=== PATIENT | female | born 1950 | race Caucasian/White ===

== ENCOUNTER 2018-10-30 02:48 | Inpatient (IN) | payer MEDICARE, MEDICAID ==
[~2018-10-30] VITALS: Ht 167.6 cm; Wt 65.0 kg
[~2018-10-30 02:48] MED LIST: ASPI81TA52 PO; BUSP5TAB3 PO; CLOP75TA35 PO; FOLI1TAB16 PO; GABA100C PO; HYDR-4353 PO; METO-539 PO; PANT40TA4 PO; THIA100T70 PO
[2018-10-30] MEDS ORDERED: ondansetron/PF 4mg/2ml inj IV ONE (03:00)
[2018-10-30] MEDS ORDERED: magnesium 2GM in 50ml NS 50 ML IV ONE (03:00)
[2018-10-30] MEDS ORDERED: normal saline 1000ML IV soln IVB ONE (03:00)
[2018-10-30] MEDS ORDERED: thiamine inj. 100 MG in normal saline 100ml IV soln 99 ML IV ONE (03:00)
[2018-10-30] MEDS ORDERED: thiamine 100mg/ml 2ml inj. IV ONE ×2 (03:10→09:20)
--- NOTE | 2018-10-30 03:12 | NUR ---
SZ PADS PLACED ORDERED
[2018-10-30 03:38] LABS: BASOPHILS # (AUTO) 0.2 X10'3 (0-0.2); BASOPHILS % (AUTO) 0.8 % (0-1); EOSINOPHILS # (AUTO) 0.4 X10'3 (0-0.9); LYMPHOCYTES # (AUTO) 2.4 X10'3 (1.1-4.8)
[2018-10-30 03:41] LABS: EOSINOPHILS % (AUTO) 1.8 % (0-6); LYMPHOCYTES % (AUTO) 11.5 % (21-51); MEAN CORPUSCULAR HEMOGLOBIN 23.6 PG (27.0-31.0); MEAN CORPUSCULAR HGB CONC 31.6 g/dL (33.0-36.5); MEAN CORPUSCULAR VOLUME 74.9 FL (78-98); MEAN PLATELET VOLUME 9.4 FL (7.4-10.4); MONOCYTES # (AUTO) 1.1 X10'3 (0-0.9); MONOCYTES % (AUTO) 5.2 % (2-12); NEUTROPHILS % (AUTO) 80.7 % (42-75); PLATELET COUNT 541 X10'3 (140-440); RED BLOOD COUNT 8.27 X10'6 (4.20-5.60); RED CELL DISTRIBUTION WIDTH 22.5 % (11.5-14.5); WHITE BLOOD COUNT 21.1 X10'3 (4.5-11.0)
--- NOTE | 2018-10-30 03:47 | NUR ---
PT REQUESTED ORANGE JUICE AND ICE CREAM. ADVISED HER WE DO NOT HAVE ICE CREAM AND BROUGHT HER 2 JUICE BOXES OF ORANGE JUICE.
[2018-10-30 03:51] LABS: ALANINE AMINOTRANSFERASE 23 U/L (12-78); ALBUMIN 3.5 G/DL (3.4-5.0); ALBUMIN/GLOBULIN RATIO 0.9 (1.1-1.5); ALKALINE PHOSPHATASE 121 IU/L (46-116); ANION GAP 13 (8-16); ASPARTATE AMINO TRANSFERASE 17 U/L (10-37); BILIRUBIN,TOTAL 0.3 MG/DL (0.1-1.0); BLOOD UREA NITROGEN 9 MG/DL (7-18); BUN/CREATININE RATIO 14.5 (6.6-38.0); CALCIUM 8.9 MG/DL (8.5-10.1); CHLORIDE 106 MMOL/L (99-107); CREATININE 0.62 MG/DL (0.40-0.90); ETHANOL 0.231 GM/DL (0.0-0.010); MAGNESIUM 1.9 MG/DL (1.5-2.4); POTASSIUM 3.3 MMOL/L (3.5-5.1); SODIUM 140 MMOL/L (135-145); TOTAL CARBON DIOXIDE 20.7 MMOL/L (24-32); TOTAL PROTEIN 7.6 G/DL (6.4-8.2); eGFR > 90 ML/MIN
[2018-10-30 03:56] LABS: GLUCOSE 124 MG/DL (70-104)
--- NOTE | 2018-10-30 04:08 | NUR ---
PT STATING "DON'T KICK ME OUT TOO SOON, I NEED A BREAK FROM MY ROOMMATE"
--- NOTE | 2018-10-30 04:19 | NUR ---
pt to bedside commode voided over 500 ml of yellow urine
[2018-10-30 04:27] LABS: HEMATOCRIT 61.9 % (35.0-45.0); HEMOGLOBIN 19.5 g/dl (12.0-16.0)
[2018-10-30 04:35] LABS: ANISOCYTOSIS 3+; LARGE PLATELETS MANY; MICROCYTOSIS 1+; PLATELET ESTIMATE INCREASED
[2018-10-30] MEDS ORDERED: CefTRIAXone 2gm/D5W 50ml 50 ML IV ONE (04:55)
--- NOTE | 2018-10-30 05:10 | NUR ---
BLOOD CX DRAWN/ URINE SENT/ PT UP OUT OF BED TO VOID IN BEDSIDE COMMODE. PT VOIDED 900ML PLUS OF CLEAR YELLOW URINE
[2018-10-30] MEDS: normal saline 1000ML IV soln IVB ONE ×2 (05:14→05:33)
[2018-10-30 05:20] LABS: CLARITY,URINE CLEAR (Clear); COLOR,URINE STRAW (Yellow); GLUCOSE, URINE NEGATIVE (Neg); KETONES,URINE NEGATIVE (Neg); LEUKOCYTE ESTERASE ,URINE NEGATIVE (Neg); NITRITES, URINE NEGATIVE (Neg); OCCULT BLOOD,URINE TRACE-INTACT (Neg); PROTEIN,URINE NEGATIVE (Neg); UROBILINOGEN,URINE 0.2 E.U/dL (0.2-1.0)
[2018-10-30 05:22] LABS: UA COLLECTION TYPE CLN CATCH MIDSTREAM
[2018-10-30 05:29] LABS: BASOPHILS # (AUTO) 0.2 X10'3 (0-0.2); EOSINOPHILS # (AUTO) 0.3 X10'3 (0-0.9); EOSINOPHILS % (AUTO) 1.4 % (0-6); LYMPHOCYTES # (AUTO) 1.5 X10'3 (1.1-4.8); LYMPHOCYTES % (AUTO) 7.8 % (21-51); MEAN CORPUSCULAR HEMOGLOBIN 23.8 PG (27.0-31.0); MEAN CORPUSCULAR HGB CONC 31.8 g/dL (33.0-36.5); MEAN CORPUSCULAR VOLUME 74.8 FL (78-98); MEAN PLATELET VOLUME 9.8 FL (7.4-10.4); MONOCYTES # (AUTO) 0.9 X10'3 (0-0.9); MONOCYTES % (AUTO) 4.5 % (2-12); NEUTROPHILS # (AUTO) 16.3 X10'3 (1.8-7.7); NEUTROPHILS % (AUTO) 85.3 % (42-75); PLATELET COUNT 487 X10'3 (140-440); RED BLOOD COUNT 8.04 X10'6 (4.20-5.60); RED CELL DISTRIBUTION WIDTH 22.4 % (11.5-14.5); WHITE BLOOD COUNT 19.1 X10'3 (4.5-11.0)
[2018-10-30 05:31] LABS: URINE AMPHETAMINE SCREEN NEGATIVE (Neg); URINE BARBITUATE SCREEN NEGATIVE (Neg); URINE BENZODIAZEPINES SCREEN NEGATIVE (Neg); URINE CANNABINOID SCREEN NEGATIVE (Neg); URINE COCAINE SCREEN NEGATIVE (Neg); URINE METHADONE SCREEN NEGATIVE (Neg); URINE OPIATE SCREEN NEGATIVE (Neg); URINE PHENCYCLIDINE SCREEN NEGATIVE (Neg)
[2018-10-30] MEDS ORDERED: azithromycin 250mg tablet PO ONE ×2 (05:45→09:20)
[2018-10-30] MEDS ORDERED: phenobarbital inj 260 MG in normal saline 100ml IV soln 99 ML IV STA (05:51)
--- NOTE | 2018-10-30 05:51 | NUR ---
pt assisted to BSC to void and then back to bed.
[2018-10-30 05:54] LABS: BACTERIA,URINE NONE SEEN /HPF (Neg); RBC,URINE 0-2 /HPF (0-2); SQUAMOUS EPITHELIAL CELL,UR FEW /LPF (FEW); WBC,URINE 0-4 /HPF (0-4)
[2018-10-30 05:55] LABS: MUCUS STRANDS NONE SEEN /LPF (Neg)
[2018-10-30 06:20] LABS: TOTAL CELLS COUNTED 100
[2018-10-30 06:21] LABS: ANISOCYTOSIS 3+; MICROCYTOSIS 1+; PLATELET ESTIMATE INCREASED
[2018-10-30 06:28] LABS: GIANT PLATELET FEW; LARGE PLATELETS FEW
[2018-10-30] MEDS ORDERED: iohexol 350MG/ML 100ml bottle IV ONE (06:36)
--- NOTE | 2018-10-30 06:55 | NUR ---
ASSUMED CARE, STARTING THE PHENOBARBITAL BOLUS PER DR Zepeda, VERIFIED WITH DR WATSON, 260MG, IV BOLUS
[2018-10-30] MEDS ORDERED: potassium Cl 20 mEq SR tablet PO STA (07:08)
[2018-10-30] MEDS ORDERED: ipratropium/albuterol 3ml nebule NEB ONE (07:30)
[2018-10-30] MEDS ORDERED: ASPI-1264 PO (09:15)
[2018-10-30] MEDS ORDERED: DIPH25CA83 PO (09:15)
[2018-10-30] MEDS ORDERED: MELA3TAB64 PO (09:15)
[2018-10-30] MEDS ORDERED: magnesium hydroxide 30ml (MOM) UD suspension PO PRN (09:20)
[2018-10-30] MEDS ORDERED: haloperidol 5mg tablet PO PRN (09:20)
[2018-10-30] MEDS ORDERED: potassium Cl 20 mEq SR tablet PO PRN ×2 (09:20)
[2018-10-30] MEDS ORDERED: magnesium Cl slow-release 64mg tablet PO PRN (09:20)
[2018-10-30] MEDS ORDERED: ondansetron/PF 4mg/2ml inj IV PRN (09:20)
[2018-10-30] MEDS ORDERED: CADD PCA waste documentation MC PRN (09:20)
[2018-10-30] MEDS ORDERED: haloperidol lactate 5mg/ml inj IM PRN (09:20)
[2018-10-30] MEDS ORDERED: acetaminophen 325mg tablet PO PRN ×2 (09:20)
[2018-10-30] MEDS ORDERED: naloxone 0.4 mg/ml inj IV PRN (09:20)
[2018-10-30] MEDS ORDERED: ipratropium/albuterol 3ml nebule NEB PRN (09:20)
[2018-10-30] MEDS ORDERED: mag hydrox/Alum hydrox/simeth 30ml oral suspension PO PRN (09:20)
[2018-10-30] MEDS ORDERED: LORazepam 2 mg/ml vial IV PRN (09:20)
[2018-10-30] MEDS ORDERED: potassium CL 10mEq/100ml bag 100 ML IV PRN ×2 (09:20)
[2018-10-30] MEDS ORDERED: dextrose 50%-water 50ml dispensing syringe IV PRN (09:20)
[2018-10-30] MEDS ORDERED: magnesium 4gm in 100ml NS 100 ML IV PRN (09:20)
[2018-10-30] MEDS ORDERED: magnesium 2GM in 50ml NS 50 ML IV PRN (09:20)
[2018-10-30] MEDS ORDERED: HYDROcodone/acetaminophen 10/325mg tab PO PRN ×2 (09:20→15:40)
[2018-10-30] MEDS: normal saline 1000ml 1,000 ML IV SCH ×2 (09:50→19:39)
[2018-10-30] MEDS ORDERED: thiamine inj. 100 MG, magnesium sulf injection 2 GM, MVI, adult No.4 with vit. K 10 ML ... IV SCH ×4 (10:05)
[2018-10-30 10:49] LABS: HEMOGLOBIN 19.1 g/dl (12.0-16.0)
[2018-10-30] MEDS: ipratropium/albuterol 3ml nebule NEB SCH ×3 (11:45→23:05)
[2018-10-30] MEDS: folic acid 1mg tablet PO SCH (12:02)
[2018-10-30] MEDS: thiamine 100mg tablet PO SCH (12:02)
[2018-10-30] MEDS: multivitamins, therapeutics tablet PO SCH (12:02)
[2018-10-30] MEDS ORDERED: THIA100T66 PO (12:38)
[2018-10-30] MEDS ORDERED: PANT-47 PO (12:38)
[2018-10-30] MEDS ORDERED: METO-395 PO (12:38)
[2018-10-30] MEDS ORDERED: GABA-530 PO (12:38)
[2018-10-30] MEDS ORDERED: BUSP10TA3 PO (12:38)
[2018-10-30] MEDS ORDERED: CLOP75TA15 PO (12:38)
[2018-10-30] MEDS ORDERED: FOLI1TAB16 PO (12:38)
[2018-10-30] MEDS ORDERED: HYDR-4353 PO (12:38)
--- NOTE | 2018-10-30 13:26 | NUR ---
CALLED TO GIVE REPORT, NURSE IS TIED UP AT THE MOMENT, SHE WILL CALL ME BACK SOON
[2018-10-30 15:00] VITALS: BP 160/66
[2018-10-30 18:03] VITALS: BP 160/75
--- NOTE | 2018-10-30 18:30 | NUR ---
Patient in room JANET 350. I have received report from MASSIMO Vargas and had the opportunity to ask questions and assume patient care with MASSIMO Ventura. Addendum: 10/30/18 at 1903 by Uvaldo Liu RN Amended: Links added.
--- NOTE | 2018-10-30 19:05 | NUR ---
Patient in room JANET 350. I have received report from GARRETT and had the opportunity to ask questions and assume patient care.
[2018-10-30 19:21] LABS: POTASSIUM 3.8 MMOL/L (3.5-5.1)
[2018-10-30] MEDS: lactobacillus rhamnosus 10,000 MMU CELLS/CAPSULE PO SCH (19:39)
[2018-10-30] MEDS ORDERED: non-formulary drug (Buspirone HCl 1 TAB) PO SCH (21:00)
[2018-10-30] MEDS ORDERED: Melatonin 3mg tablet PO SCH (21:00)
[2018-10-30] MEDS ORDERED: diphenhydrAMINE 25mg capsule PO SCH (21:00)
[2018-10-30] MEDS: busPIRone 5mg tablet PO SCH (21:36)
[2018-10-31] VITALS: BP 150/75
--- NOTE | 2018-10-31 01:16 | NUR ---
Left buttocks sl reddened, small scabs. pt states has been itching, and has reactions to certain soaps. some small scattered abrasion to lower back. no bed bugs noted, no bed bugs noted in clothing. Pt states she did not have bed bugs in her apartment, but were in other apartments in building. States the whole building is being treated, and carpet changed. picture of buttocks taken.
[2018-10-31 04:54] LABS: BASOPHILS # (AUTO) 0.1 X10'3 (0-0.2); BASOPHILS % (AUTO) 0.6 % (0-1); EOSINOPHILS # (AUTO) 0.5 X10'3 (0-0.9); EOSINOPHILS % (AUTO) 3.3 % (0-6); HEMATOCRIT 54.4 % (35.0-45.0); HEMOGLOBIN 17.3 g/dl (12.0-16.0); LYMPHOCYTES # (AUTO) 1.5 X10'3 (1.1-4.8); LYMPHOCYTES % (AUTO) 10.2 % (21-51); MEAN CORPUSCULAR HEMOGLOBIN 23.8 PG (27.0-31.0); MEAN CORPUSCULAR HGB CONC 31.8 g/dL (33.0-36.5); MEAN CORPUSCULAR VOLUME 74.8 FL (78-98); MEAN PLATELET VOLUME 10.2 FL (7.4-10.4); MONOCYTES # (AUTO) 1.1 X10'3 (0-0.9); MONOCYTES % (AUTO) 7.6 % (2-12); NEUTROPHILS # (AUTO) 11.5 X10'3 (1.8-7.7); NEUTROPHILS % (AUTO) 78.3 % (42-75); PLATELET COUNT 430 X10'3 (140-440); RED BLOOD COUNT 7.28 X10'6 (4.20-5.60); RED CELL DISTRIBUTION WIDTH 22.2 % (11.5-14.5); WHITE BLOOD COUNT 14.7 X10'3 (4.5-11.0)
[2018-10-31] MEDS: normal saline 1000ml 1,000 ML IV SCH (05:09)
[2018-10-31 05:13] LABS: ALANINE AMINOTRANSFERASE 20 U/L (12-78); ALBUMIN 2.8 G/DL (3.4-5.0); ALBUMIN/GLOBULIN RATIO 0.9 (1.1-1.5); ALKALINE PHOSPHATASE 100 IU/L (46-116); ANION GAP 5 (8-16); ASPARTATE AMINO TRANSFERASE 17 U/L (10-37); BILIRUBIN,TOTAL 0.5 MG/DL (0.1-1.0); BLOOD UREA NITROGEN 7 MG/DL (7-18); BUN/CREATININE RATIO 13.5 (6.6-38.0); CALCIUM 8.2 MG/DL (8.5-10.1); CHLORIDE 112 MMOL/L (99-107); CREATININE 0.52 MG/DL (0.40-0.90); GLUCOSE 84 MG/DL (70-104); MAGNESIUM 1.8 MG/DL (1.5-2.4); POTASSIUM 3.5 MMOL/L (3.5-5.1); SODIUM 144 MMOL/L (135-145); TOTAL CARBON DIOXIDE 26.6 MMOL/L (24-32); eGFR > 90 ML/MIN
--- NOTE | 2018-10-31 05:53 | NUR ---
AGREE WITH NURSING ASSESSMENT DONE BY MASSIMO HUERTAS Addendum: 10/31/18 at 0553 by Uvaldo Liu RN Amended: Links added.
--- NOTE | 2018-10-31 06:29 | NUR ---
Problems reprioritized. Patient report given, questions answered & plan of care reviewed with MASSIMO Leal. Addendum: 10/31/18 at 0630 by Uvaldo Liu RN Amended: Links added.
--- NOTE | 2018-10-31 06:41 | NUR ---
Patient in room JANET 350. I have received report from SHERIE KEYS and had the opportunity to ask questions and assume patient care.
[2018-10-31 07:00] VITALS: BP 197/82
[2018-10-31] MEDS ORDERED: levoTHYROXINE 25mcg tablet PO SCH (07:00)
[2018-10-31 07:06] LABS: ANISOCYTOSIS 3+; ELLIPTOCYTES FEW; LARGE PLATELETS FEW; MICROCYTOSIS 1+; PLATELET ESTIMATE NORMAL
[2018-10-31] MEDS: ipratropium/albuterol 3ml nebule NEB SCH ×3 (07:29→15:12)
[2018-10-31] MEDS ORDERED: CefTRIAXone/D5W-Rocephin 1gm 50 ML IV SCH (08:00)
[2018-10-31] MEDS ORDERED: aspirin 325mg tablet PO SCH (08:00)
[2018-10-31] MEDS ORDERED: K and/or MAG REPLACEMENT MC SCH (08:00)
[2018-10-31] MEDS ORDERED: enoxaparin 40mg/0.4ml syringe SQ SCH (08:00)
[2018-10-31] MEDS ORDERED: pantoprazole 40mg Tablet.DR PO SCH (08:00)
[2018-10-31] MEDS ORDERED: gabapentin 100mg capsule PO SCH (08:00)
[2018-10-31] MEDS ORDERED: clopidogrel 75mg tablet PO SCH (08:00)
[2018-10-31] MEDS ORDERED: azithromycin 250mg tablet PO SCH (08:00)
[2018-10-31] MEDS ORDERED: metoprolol succinate 25mg (24-HOUR) SR. Tablet PO SCH (08:00)
[2018-10-31 08:41] LABS: HEMATOCRIT 60.1 % (35.0-45.0)
[2018-10-31] MEDS: folic acid 1mg tablet PO SCH (08:43)
[2018-10-31] MEDS: thiamine 100mg tablet PO SCH (08:43)
[2018-10-31] MEDS: lactobacillus rhamnosus 10,000 MMU CELLS/CAPSULE PO SCH (08:43)
[2018-10-31] MEDS: busPIRone 5mg tablet PO SCH ×2 (08:44→13:40)
[2018-10-31] MEDS: multivitamins, therapeutics tablet PO SCH (08:53)
[2018-10-31 11:00] VITALS: BP 152/102
--- NOTE | 2018-10-31 11:23 | NUR ---
PER [facility] DEPT. PT DOES NOT NEED TO BE IN ISO. 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
[2018-10-31] MEDS ORDERED: LEVO750T21 PO (13:26)
[2018-10-31] MEDS ORDERED: LEVO25TA7 PO (13:26)
--- NOTE | 2018-10-31 17:07 | NUR ---
PT WAITING OUTSIDE FOR [facility] TO DAIRY FEED MIXING OPERATOR. THEY ARE RUNNING LATE BECAUSE THEY NEEDED TO GO BACK AND DAIRY FEED MIXING OPERATOR W/C. RIDE CURRENTLY HERE.
[2018-11-01] MEDS ORDERED: LORazepam 1 MG tablet PO PRN (09:20)
[2018-11-01] MEDS ORDERED: LORazepam 2 mg/ml vial IV PRN (09:20)
[2018-11-03] MEDS ORDERED: LORazepam 2 mg/ml vial IV PRN (09:20)
[2018-11-03] MEDS ORDERED: LORazepam 1 MG tablet PO PRN (09:20)
== END 2018-10-31 16:40 | disposition home or self-care (01) | DRG 871 ==
LOC: ER 02:48 → SUR 3N 14:00 → CMPBEDREQ 19:03
PROVIDERS: ADMIT Family Medicine; ATTEND Family Medicine
PROC: B32T1ZZ Computerized Tomography (CT Scan) of Left Pulmonary Artery using Low Osmolar Contrast (ICD-10-PCS; principal; 2018-10-30)
PROC: B3201ZZ Computerized Tomography (CT Scan) of Thoracic Aorta using Low Osmolar Contrast (ICD-10-PCS; 2018-10-30)
PROC: B32S1ZZ Computerized Tomography (CT Scan) of Right Pulmonary Artery using Low Osmolar Contrast (ICD-10-PCS; 2018-10-30)
DX: A41.9 Sepsis, unspecified organism (principal); J69.0 Pneumonitis due to inhalation of food and vomit; F10.230 Alcohol dependence with withdrawal, uncomplicated; F10.229 Alcohol dependence with intoxication, unspecified; E87.6 Hypokalemia; R94.6 Abnormal results of thyroid function studies; D75.1 Secondary polycythemia; E03.9 Hypothyroidism, unspecified; F17.210 Nicotine dependence, cigarettes, uncomplicated; F41.1 Generalized anxiety disorder; J44.9 Chronic obstructive pulmonary disease, unspecified; I73.9 Peripheral vascular disease, unspecified; R09.02 Hypoxemia; Z79.890 Hormone replacement therapy; Z89.412 Acquired absence of left great toe; Z82.49 Family history of ischemic heart disease and other diseases of the circulatory system; Z89.511 Acquired absence of right leg below knee; Z90.710 Acquired absence of both cervix and uterus; Z98.51 Tubal ligation status; Z88.8 Allergy status to other drugs, medicaments and biological substances; Z71.6 Tobacco abuse counseling
CPT/HCPCS: 36415; 71045; 71275; 80053; 80305; 80320; 81001; 82948; 83605; 83735; 83880; 84132; 84145; 84443; 84484; 85025; 87040; 87081; 93005; 94640; 94760; 96365; 96366; 96367; 96368; 96375; 97161; 97530; 99285; G0378; J0696; J1650; J2405; J2560; J3411; J3475; J7030; Q0163; Q9967

== ENCOUNTER 2019-07-10 11:02 | Inpatient (IN) | payer MEDICARE, MEDICAID ==
[~2019-07-10] VITALS: Ht 167.6 cm; Wt 63.6 kg
[~2019-07-10 11:02] MED LIST changes: +ASPI-1264 PO; -ASPI81TA52 PO; +ATOR20TA66 PO; +BUSP10TA3 PO; -BUSP5TAB3 PO; +CIPR-230 PO; -FOLI1TAB16 PO; -GABA100C PO; -HYDR-4353 PO; +LEVO25TA7 PO; +LISI10TA4 PO; -METO-539 PO; +NOR5T PO; -PANT40TA4 PO; -THIA100T70 PO
[2019-07-10 11:41] LABS: EOSINOPHILS # (AUTO) 0.5 X10'3 (0-0.9); EOSINOPHILS % (AUTO) 3.7 % (0-6); MEAN CORPUSCULAR HGB CONC 30.9 g/dL (33.0-36.5)
[2019-07-10 11:43] LABS: BASOPHILS # (AUTO) 0.1 X10'3 (0-0.2); HEMATOCRIT 59.9 % (35.0-45.0); LYMPHOCYTES # (AUTO) 1.4 X10'3 (1.1-4.8); LYMPHOCYTES % (AUTO) 9.8 % (21-51); MEAN CORPUSCULAR HEMOGLOBIN 22.6 PG (27.0-31.0); MEAN CORPUSCULAR VOLUME 73.2 FL (78-98); MEAN PLATELET VOLUME 9.5 FL (7.4-10.4); MONOCYTES % (AUTO) 6.7 % (2-12); NEUTROPHILS # (AUTO) 11.4 X10'3 (1.8-7.7); NEUTROPHILS % (AUTO) 78.8 % (42-75); PLATELET COUNT 484 X10'3 (140-440); RED BLOOD COUNT 8.18 X10'6 (4.20-5.60); RED CELL DISTRIBUTION WIDTH 20.9 % (11.5-14.5); WHITE BLOOD COUNT 14.5 X10'3 (4.5-11.0)
[2019-07-10 11:47] LABS: HEMOGLOBIN 18.5 g/dl (12.0-16.0)
[2019-07-10 12:17] LABS: ANISOCYTOSIS 3+; MICROCYTOSIS 1+; PLATELET ESTIMATE INCREASED; TOTAL CELLS COUNTED 100
[2019-07-10 12:18] LABS: POLYCHROMASIA FEW
[2019-07-10 12:23] LABS: ALANINE AMINOTRANSFERASE 29 U/L (12-78); ALBUMIN 3.3 G/DL (3.4-5.0); ALBUMIN/GLOBULIN RATIO 1.1 (1.1-1.5); ALKALINE PHOSPHATASE 103 IU/L (46-116); ANION GAP 10 (8-16); ASPARTATE AMINO TRANSFERASE 23 U/L (10-37); BILIRUBIN,TOTAL 0.5 MG/DL (0.1-1.0); BLOOD UREA NITROGEN 18 MG/DL (7-18); CALCIUM 8.3 MG/DL (8.5-10.1); CHLORIDE 111 MMOL/L (99-107); CREATININE 0.58 MG/DL (0.40-0.90); ETHANOL < 0.010 GM/DL (0.0-0.010); POTASSIUM 3.6 MMOL/L (3.5-5.1); SODIUM 145 MMOL/L (135-145); TOTAL CARBON DIOXIDE 24.2 MMOL/L (24-32); TOTAL PROTEIN 6.4 G/DL (6.4-8.2); eGFR > 90 ML/MIN
[2019-07-10 12:24] LABS: GLUCOSE 95 MG/DL (70-104)
--- NOTE | 2019-07-10 12:30 | NUR ---
stroke nurse at bedside
[2019-07-10 12:45] LABS: PARTIAL THROMBOPLASTIN TIME 29 SECONDS (22-32)
[2019-07-10] MEDS ORDERED: aspirin 325mg tablet PO ONE (12:50)
[2019-07-10] MEDS ORDERED: clopidogrel 75mg tablet PO ONE (12:50)
[2019-07-10] MEDS ORDERED: iohexol 350MG/ML 100ml bottle IV ONE (12:53)
--- NOTE | 2019-07-10 12:58 | NUR ---
pt is off floor to CT (2nd)
[2019-07-10] MEDS ORDERED: magnesium 4gm in 100ml NS 100 ML IV PRN (14:45)
[2019-07-10] MEDS ORDERED: magnesium 2GM in 50ml NS 50 ML IV PRN (14:45)
[2019-07-10] MEDS ORDERED: magnesium hydroxide 30ml (MOM) UD suspension PO PRN (14:45)
[2019-07-10] MEDS ORDERED: potassium Cl 20 mEq SR tablet PO PRN (14:45)
[2019-07-10] MEDS ORDERED: potassium CL 10mEq/100ml bag 100 ML IV PRN ×2 (14:45)
[2019-07-10] MEDS ORDERED: mag hydrox/Alum hydrox/simeth 30ml oral suspension PO PRN (14:45)
[2019-07-10] MEDS ORDERED: ondansetron/PF 4mg/2ml inj IV PRN (14:45)
[2019-07-10] MEDS ORDERED: HYDROcodone/acetaminophen 5mg/325mg tablet PO PRN (14:45)
[2019-07-10] MEDS ORDERED: metoclopramide 5 mg/ml inj IV PRN (14:45)
[2019-07-10] MEDS ORDERED: bisacodyl 10mg suppository rectal RC PRN (14:45)
[2019-07-10] MEDS ORDERED: magnesium Cl slow-release 64mg tablet PO PRN (14:45)
[2019-07-10] MEDS ORDERED: acetaminophen 325mg tablet PO PRN ×2 (14:45)
--- NOTE | 2019-07-10 15:27 | NUR ---
Patient will be in room 3012c when she arrives from the Emergency Dept. I have received report from Steffi KEYS via phone and had the opportunity to ask questions.
[2019-07-10 15:45] VITALS: BP 147/88
[2019-07-10] MEDS: normal saline 1000ml 1,000 ML IV SCH (16:32)
[2019-07-10] MEDS: clopidogrel 75mg tablet PO SCH (16:32)
--- NOTE | 2019-07-10 17:57 | NUR ---
Orientee documentation: I have reviewed and agree with all interventions, assessments performed and documented by MASSIMO Prabhakar.
--- NOTE | 2019-07-10 17:58 | NUR ---
[place] Medication Administration: For this medication-pass time frame, all medication were reviewed, dispensed, administered and documented per hospital policy by MASSIMO Prabhakar.
[2019-07-10 18:00] VITALS: BP 159/73
--- NOTE | 2019-07-10 18:15 | NUR ---
Patient in room PCU 3012. I have received report from Vanna KEYS and had the opportunity to ask questions and assume patient care.
--- NOTE | 2019-07-10 18:18 | NUR ---
Problems reprioritized. Patient report given, questions answered & plan of care reviewed with Erasmo KEYS.
--- NOTE | 2019-07-10 18:18 | NUR ---
Problems reprioritized. Patient report given, questions answered & plan of care reviewed with MASSIMO Zimmerman.
[2019-07-10] MEDS ORDERED: CLOP75TA33 PO (18:23)
[2019-07-10] MEDS ORDERED: LISI10TA4 PO (18:23)
[2019-07-10] MEDS ORDERED: ATOR40TA72 PO (18:23)
[2019-07-10] MEDS ORDERED: AMLO10TA13 PO (18:23)
[2019-07-10] MEDS: K and/or MAG REPLACEMENT MC SCH (20:00)
[2019-07-10] MEDS ORDERED: temazepam 15mg capsule PO PRN (21:00)
[2019-07-10] MEDS: Melatonin 3mg tablet PO SCH (21:40)
[2019-07-10] MEDS: busPIRone 5mg tablet PO SCH (21:40)
[2019-07-10 22:00] VITALS: BP 149/80
[2019-07-11] MEDS: normal saline 1000ml 1,000 ML IV SCH (00:45)
[2019-07-11 03:00] VITALS: BP 172/88
[2019-07-11 06:00] VITALS: BP 137/62
--- NOTE | 2019-07-11 06:05 | NUR ---
Patient in room PCU 3012. I have received report from Erasmo and had the opportunity to ask questions and assume patient care.
[2019-07-11 06:06] LABS: HEMATOCRIT 58.4 % (35.0-45.0); MEAN CORPUSCULAR HEMOGLOBIN 22.5 PG (27.0-31.0); MEAN CORPUSCULAR HGB CONC 30.9 g/dL (33.0-36.5); MEAN CORPUSCULAR VOLUME 72.8 FL (78-98); MEAN PLATELET VOLUME 10.4 FL (7.4-10.4); PLATELET COUNT 495 X10'3 (140-440); RED BLOOD COUNT 8.02 X10'6 (4.20-5.60); RED CELL DISTRIBUTION WIDTH 21.1 % (11.5-14.5); WHITE BLOOD COUNT 12.1 X10'3 (4.5-11.0)
[2019-07-11 06:14] LABS: ALBUMIN 3.1 G/DL (3.4-5.0); ANION GAP 8 (8-16); BLOOD UREA NITROGEN 16 MG/DL (7-18); BUN/CREATININE RATIO 21.9 (6.6-38.0); CALCIUM 8.3 MG/DL (8.5-10.1); CHLORIDE 109 MMOL/L (99-107); CHOLESTEROL 128 MG/DL (0-200); CREATININE 0.73 MG/DL (0.40-0.90); GLUCOSE 124 MG/DL (70-104); HDL CHOLESTEROL 32 MG/DL (35-60); LDL CHOLESTEROL 73 MG/DL (50-100); MAGNESIUM 1.8 MG/DL (1.5-2.4); PHOSPHORUS 3.8 MG/DL (2.3-4.5); POTASSIUM 3.4 MMOL/L (3.5-5.1); SODIUM 145 MMOL/L (135-145); TOTAL CARBON DIOXIDE 27.8 MMOL/L (24-32); TRIGLYCERIDES 135 MG/DL (20-135); eGFR 79 ML/MIN
--- NOTE | 2019-07-11 06:30 | NUR ---
Problems reprioritized. Patient report given, questions answered & plan of care reviewed with Yasmeen KEYS.
[2019-07-11] MEDS ORDERED: aspirin 81mg tablet.DR PO SCH (08:00)
[2019-07-11] MEDS ORDERED: clopidogrel 75mg tablet PO SCH (08:00)
[2019-07-11] MEDS: K and/or MAG REPLACEMENT MC SCH ×2 (08:00→20:00)
[2019-07-11] MEDS: levoTHYROXINE 25mcg tablet PO SCH (08:31)
[2019-07-11] MEDS: clopidogrel 75mg tablet PO SCH (08:31)
[2019-07-11] MEDS: aspirin 81mg tablet.DR PO SCH (08:31)
[2019-07-11] MEDS: busPIRone 5mg tablet PO SCH ×3 (08:31→20:41)
[2019-07-11] MEDS: atorvastatin 20mg tablet PO SCH (08:31)
[2019-07-11] MEDS: potassium Cl 20 mEq SR tablet PO PRN ×3 (08:32→20:41)
[2019-07-11] MEDS: enoxaparin 40mg/0.4ml syringe SUBCUT SCH (08:32)
[2019-07-11 11:00] VITALS: BP 154/78
[2019-07-11 15:00] VITALS: BP 153/87
[2019-07-11 18:00] VITALS: BP 173/84
--- NOTE | 2019-07-11 18:25 | NUR ---
Patient in room PCU 3012-C. I have received report from MASSIMO Arana and had the opportunity to ask questions and assume patient care. Patient denies CP, SOB, dizziness, n/v, and rated pain 0/10
--- NOTE | 2019-07-11 18:25 | NUR ---
Problems reprioritized. Patient report given, questions answered & plan of care reviewed with Brandon.
[2019-07-11] MEDS: Melatonin 3mg tablet PO SCH (20:40)
[2019-07-11 22:00] VITALS: BP 146/67
[2019-07-12 02:00] VITALS: BP 141/93
[2019-07-12 06:00] VITALS: BP 154/86
--- NOTE | 2019-07-12 06:27 | NUR ---
Problems reprioritized. Patient report given, questions answered & plan of care reviewed with MASSIMO Mccartney. Patient stable at shift change
[2019-07-12 06:28] LABS: MEAN CORPUSCULAR HEMOGLOBIN 22.4 PG (27.0-31.0); MEAN CORPUSCULAR HGB CONC 30.9 g/dL (33.0-36.5)
[2019-07-12 06:29] LABS: HEMATOCRIT 59.8 % (35.0-45.0); MEAN CORPUSCULAR VOLUME 72.5 FL (78-98); MEAN PLATELET VOLUME 9.5 FL (7.4-10.4); PLATELET COUNT 447 X10'3 (140-440); RED BLOOD COUNT 8.26 X10'6 (4.20-5.60); RED CELL DISTRIBUTION WIDTH 21.3 % (11.5-14.5); WHITE BLOOD COUNT 12.5 X10'3 (4.5-11.0)
[2019-07-12 06:33] LABS: HEMOGLOBIN 18.5 g/dl (12.0-16.0)
--- NOTE | 2019-07-12 06:38 | NUR ---
Patient in room PCU 3012. I have received report from Brandon KEYS and had the opportunity to ask questions and assume patient care.
[2019-07-12 06:48] LABS: ALBUMIN 3.3 G/DL (3.4-5.0); ANION GAP 9 (8-16); BLOOD UREA NITROGEN 15 MG/DL (7-18); BUN/CREATININE RATIO 22.4 (6.6-38.0); CALCIUM 8.7 MG/DL (8.5-10.1); CHLORIDE 108 MMOL/L (99-107); CREATININE 0.67 MG/DL (0.40-0.90); GLUCOSE 97 MG/DL (70-104); MAGNESIUM 2.2 MG/DL (1.5-2.4); PHOSPHORUS 3.9 MG/DL (2.3-4.5); POTASSIUM 4.4 MMOL/L (3.5-5.1); SODIUM 142 MMOL/L (135-145); TOTAL CARBON DIOXIDE 24.9 MMOL/L (24-32); eGFR 87 ML/MIN
[2019-07-12] MEDS: busPIRone 5mg tablet PO SCH ×3 (07:28→20:39)
[2019-07-12] MEDS: clopidogrel 75mg tablet PO SCH (07:28)
[2019-07-12] MEDS: atorvastatin 20mg tablet PO SCH (07:28)
[2019-07-12] MEDS: levoTHYROXINE 25mcg tablet PO SCH (07:28)
[2019-07-12] MEDS: aspirin 81mg tablet.DR PO SCH (07:28)
[2019-07-12] MEDS: enoxaparin 40mg/0.4ml syringe SUBCUT SCH (07:29)
[2019-07-12] MEDS: K and/or MAG REPLACEMENT MC SCH ×2 (07:32→20:00)
[2019-07-12 11:00] VITALS: BP 123/80
[2019-07-12 15:00] VITALS: BP 154/80
[2019-07-12] MEDS ORDERED: iohexol 300mg/ml 100ml inj. ONE (16:53)
[2019-07-12 18:00] VITALS: BP 159/72
--- NOTE | 2019-07-12 18:13 | NUR ---
Patient in room PCU 3012. I have received report from MASSIMO Hernandez and had the opportunity to ask questions and assume patient care.
[2019-07-12] MEDS: Melatonin 3mg tablet PO SCH (20:39)
[2019-07-12 22:00] VITALS: BP 148/83
[2019-07-13 02:00] VITALS: BP 161/80
[2019-07-13 03:15] LABS: CLARITY,URINE SLIGHTLY CLOUDY (Clear); COLOR,URINE YELLOW (Yellow); GLUCOSE, URINE NEGATIVE (Neg); KETONES,URINE NEGATIVE (Neg); LEUKOCYTE ESTERASE ,URINE NEGATIVE (Neg); NITRITES, URINE NEGATIVE (Neg); OCCULT BLOOD,URINE NEGATIVE (Neg); PH,URINE 5.5 (4.8-8.0); PROTEIN,URINE TRACE mg/dl (Neg); UA COLLECTION TYPE CLN CATCH MIDSTREAM; UROBILINOGEN,URINE 0.2 E.U/dL (0.2-1.0)
[2019-07-13 03:21] LABS: URINE AMPHETAMINE SCREEN NEGATIVE (Neg); URINE BARBITUATE SCREEN NEGATIVE (Neg); URINE BENZODIAZEPINES SCREEN NEGATIVE (Neg); URINE CANNABINOID SCREEN NEGATIVE (Neg); URINE COCAINE SCREEN NEGATIVE (Neg); URINE METHADONE SCREEN NEGATIVE (Neg); URINE OPIATE SCREEN NEGATIVE (Neg); URINE PHENCYCLIDINE SCREEN NEGATIVE (Neg)
[2019-07-13 03:26] LABS: AMORPHOUS URATES 1+; BACTERIA,URINE FEW /HPF (Neg); MUCUS STRANDS NONE SEEN /LPF (Neg); RBC,URINE NONE SEEN /HPF (0-2); SQUAMOUS EPITHELIAL CELL,UR FEW /LPF (FEW); WBC,URINE 0-4 /HPF (0-4)
[2019-07-13 06:00] VITALS: BP 146/87
--- NOTE | 2019-07-13 06:49 | NUR ---
Problems reprioritized. Patient report given, questions answered & plan of care reviewed with MASSIMO Correia.
[2019-07-13 06:55] LABS: MEAN CORPUSCULAR HGB CONC 30.9 g/dL (33.0-36.5)
[2019-07-13 07:38] LABS: ALBUMIN 3.4 G/DL (3.4-5.0); ANION GAP 6 (8-16); BLOOD UREA NITROGEN 17 MG/DL (7-18); BUN/CREATININE RATIO 23.6 (6.6-38.0); CALCIUM 8.6 MG/DL (8.5-10.1); CHLORIDE 108 MMOL/L (99-107); CREATININE 0.72 MG/DL (0.40-0.90); GLUCOSE 102 MG/DL (70-104); MAGNESIUM 2.2 MG/DL (1.5-2.4); PHOSPHORUS 4.3 MG/DL (2.3-4.5); POTASSIUM 4.3 MMOL/L (3.5-5.1); SODIUM 142 MMOL/L (135-145); TOTAL CARBON DIOXIDE 27.7 MMOL/L (24-32); eGFR 80 ML/MIN
[2019-07-13] MEDS: clopidogrel 75mg tablet PO SCH (07:46)
[2019-07-13] MEDS: enoxaparin 40mg/0.4ml syringe SUBCUT SCH (07:46)
[2019-07-13] MEDS: levoTHYROXINE 25mcg tablet PO SCH (07:46)
[2019-07-13] MEDS: atorvastatin 20mg tablet PO SCH (07:47)
[2019-07-13] MEDS: busPIRone 5mg tablet PO SCH (07:47)
[2019-07-13] MEDS: aspirin 81mg tablet.DR PO SCH (07:47)
[2019-07-13 08:09] LABS: MEAN CORPUSCULAR HEMOGLOBIN 22.5 PG (27.0-31.0); MEAN CORPUSCULAR VOLUME 72.9 FL (78-98); MEAN PLATELET VOLUME 10.1 FL (7.4-10.4); PLATELET COUNT 441 X10'3 (140-440); RED CELL DISTRIBUTION WIDTH 19.8 % (11.5-14.5)
--- NOTE | 2019-07-13 09:00 | NUR ---
Critical High Hemoglobin 18 is consistent with previous resent lab results. Graciela NAVARRO is notified.
--- NOTE | 2019-07-13 09:07 | NUR ---
Page Sent Critical Lab Value PAGER ID: [phone] MESSAGE: [id number] Josephine Helm: Hemoglobin is 18 today. FYI in previous lab results it has been at a critical high. Thank You. Bren [facility] [phone]
[2019-07-13 12:18] LABS: HEMATOCRIT 58.3 % (35.0-45.0)
--- NOTE | 2019-07-13 13:19 | NUR ---
Discharged home via private vehicle. She will have access to her wheelchair on arrival home. No new home medications are required. Instructions for follow up care is well understood. Written instruction is provided. Pt. had her questions answered. She is capable to transferring into a car with assistance. Discharge is complete 1130 AM.
--- NOTE | 2019-07-15 15:55 | NUR ---
Case Management DC follow up: Spoke to pt via telephone. s/p: Weakness, R/T current CVA, pt states R hand is weak, works with "squeeze ball". Obvious speech slurring, sometimes hard to understand, pt understands questions, answers appropriately. Still able to transfer independently from/to . Reports: "getting better" Denies: acute SOB, resp distress, acute/persistent CP, BRUCE, blurry vision, N/V, emergent general pain, abd tenderness or distention, vertigo, syncope, fever, unexplained bruising, bleeding, new, worsening s/s stroke FAST. Verbalizes understanding of s/s that would warrant 10-30/ER visit for further evaluation, Lives w/roommates who will drive her to [facility] granddaughter. Verbalizes understanding of current/new Rx & why prescribed; taking as ordered, no ase noted r/t polypharmacy. Acknowledges need to follow-up/keep appts w/PCP Alis Ritchie 1-2wks [facility], understands PCP to refer pt to seafood specialist. Questions answered, needs met at NH. No further questions at this time.
== END 2019-07-13 11:40 | disposition home or self-care (01) | DRG 66 ==
LOC: ER 11:03 → ED HOLD 14:45 → PCU 3S 15:46
PROVIDERS: ADMIT Family Medicine; ATTEND Internal Medicine
DX: I63.9 Cerebral infarction, unspecified (principal); I73.9 Peripheral vascular disease, unspecified; D32.9 Benign neoplasm of meninges, unspecified; G96.19 Other disorders of meninges, not elsewhere classified; J44.9 Chronic obstructive pulmonary disease, unspecified; I10 Essential (primary) hypertension; E03.9 Hypothyroidism, unspecified; F41.9 Anxiety disorder, unspecified; E78.5 Hyperlipidemia, unspecified; F17.200 Nicotine dependence, unspecified, uncomplicated; I25.10 Atherosclerotic heart disease of native coronary artery without angina pectoris; Z90.721 Acquired absence of ovaries, unilateral; Z82.49 Family history of ischemic heart disease and other diseases of the circulatory system; Z89.511 Acquired absence of right leg below knee; Z86.73 Personal history of transient ischemic attack (TIA), and cerebral infarction without residual deficits; Z90.710 Acquired absence of both cervix and uterus
CPT/HCPCS: 36415; 70450; 70496; 70498; 70544; 70551; 71045; 74177; 76856; 80048; 80053; 80061; 80305; 80320; 81001; 82668; 83735; 84100; 84145; 84443; 85025; 85027; 85610; 85730; 87081; 92508; 92616; 93005; 97110; 97161; 97530; 99291; G0378; J1650; J7030; Q9967

== ENCOUNTER 2021-08-17 12:51 | Inpatient (IN) | payer MEDICARE, MEDICAID ==
[~2021-08-17] VITALS: Ht 167.6 cm; Wt 65.9 kg
[~2021-08-17 12:51] MED LIST changes: +AMLO10TA13 PO; -ATOR20TA66 PO; +ATOR40TA72 PO; -CIPR-230 PO; +CLOP75TA33 PO; -CLOP75TA35 PO; +LISI10TA27 PO; -LISI10TA4 PO; -NOR5T PO
[2021-08-17] MEDS ORDERED: vancomycin/NS 1 GM ADD-VANTAGE 250 ML IV ONE (12:55)
[2021-08-17] MEDS ORDERED: piperacillin/tazo 3.375gm/50ml 50 ML IV ONE (12:55)
[2021-08-17] MEDS ORDERED: normal saline 1000ML IV soln IV ONE (12:55)
[2021-08-17 13:39] LABS: ALANINE AMINOTRANSFERASE 16 U/L (12-78); ALBUMIN 3.4 G/DL (3.4-5.0); ALBUMIN/GLOBULIN RATIO 0.8 (1.1-1.5); ALKALINE PHOSPHATASE 145 IU/L (46-116); ANION GAP 9 (8-16); ASPARTATE AMINO TRANSFERASE 18 U/L (10-37); BILIRUBIN,TOTAL 0.5 MG/DL (0.1-1.0); BLOOD UREA NITROGEN 22 MG/DL (7-18); BUN/CREATININE RATIO 28.9 (6.6-38.0); C-REACTIVE PROTEIN 6.55 MG/DL (0.0-0.5); CALCIUM 9.1 MG/DL (8.5-10.1); CHLORIDE 106 MMOL/L (99-107); CREATININE 0.76 MG/DL (0.40-0.90); ETHANOL < 0.010 GM/DL (0.0-0.010); GLUCOSE 94 MG/DL (70-104); POTASSIUM 3.8 MMOL/L (3.5-5.1); SODIUM 141 MMOL/L (135-145); TOTAL CARBON DIOXIDE 26.1 MMOL/L (24-32); TOTAL PROTEIN 7.6 G/DL (6.4-8.2); eGFR 75 ML/MIN
[2021-08-17 13:46] LABS: RED BLOOD COUNT 8.29 X10'6 (4.20-5.60)
[2021-08-17 13:47] LABS: BASOPHILS % (AUTO) 0 % (0-1); EOSINOPHILS % (AUTO) 4.1 % (0-6); LYMPHOCYTES # (AUTO) 1.4 X10'3 (1.1-4.8); LYMPHOCYTES % (AUTO) 5.7 % (21-51); MEAN CORPUSCULAR HEMOGLOBIN 18.3 PG (27.0-31.0); MEAN PLATELET VOLUME 9.3 FL (7.4-10.4); MONOCYTES # (AUTO) 1.4 X10'3 (0-0.9); MONOCYTES % (AUTO) 5.4 % (2-12); NEUTROPHILS # (AUTO) 21.6 X10'3 (1.8-7.7); NEUTROPHILS % (AUTO) 84.8 % (42-75); PLATELET COUNT 829 X10'3 (140-440)
[2021-08-17 13:50] LABS: HEMATOCRIT 50.2 % (35.0-45.0); MEAN CORPUSCULAR HGB CONC 30.5 g/dL (33.0-36.5); MEAN CORPUSCULAR VOLUME 60.2 FL (78-98); RED CELL DISTRIBUTION WIDTH 23.5 % (11.5-14.5)
[2021-08-17 13:51] LABS: HEMOGLOBIN 15.3 g/dl (12.0-16.0)
[2021-08-17 13:55] LABS: TOTAL CELLS COUNTED 100
[2021-08-17 13:56] LABS: ANISOCYTOSIS 3+; PLATELET ESTIMATE INCREASED
[2021-08-17 13:57] LABS: ELLIPTOCYTES 1+; HYPOCHROMASIA 1+; POLYCHROMASIA 1+
[2021-08-17 13:58] LABS: MICROCYTOSIS 2+; TARGET CELLS FEW
[2021-08-17 13:59] LABS: GIANT PLATELET MODERATE; LARGE PLATELETS MANY
[2021-08-17] MEDS ORDERED: HYDROcodone/acetaminophen 5mg/325mg tablet PO PRN (16:45)
[2021-08-17] MEDS ORDERED: magnesium 2GM in 50ml NS 50 ML IV PRN (16:45)
[2021-08-17] MEDS ORDERED: magnesium 4gm in 100ml NS 100 ML IV PRN (16:45)
[2021-08-17] MEDS ORDERED: mag hydrox/Alum hydrox/simeth 30ml oral suspension PO PRN (16:45)
[2021-08-17] MEDS ORDERED: acetaminophen 325mg tablet PO PRN ×2 (16:45)
[2021-08-17] MEDS ORDERED: morphine 2 MG/ML inj. syringe IV PRN ×2 (16:45)
[2021-08-17] MEDS ORDERED: potassium CL 10mEq/100ml bag 100 ML IV PRN (16:45)
[2021-08-17] MEDS ORDERED: POTASSIUM BICARB 20meq eff tab 20 MEQ TABLET.EFF PO PRN ×2 (16:45)
[2021-08-17] MEDS ORDERED: ondansetron/PF 4mg/2ml inj IV PRN (16:45)
[2021-08-17] MEDS ORDERED: magnesium Cl slow-release 64mg tablet PO PRN (16:45)
[2021-08-17] MEDS: normal saline 1000ml 1,000 ML IV SCH (17:28)
[2021-08-17 17:30] LABS: UA COLLECTION TYPE NON-SPECIFIED
[2021-08-17] MEDS ORDERED: vancomycin inj 500 MG in normal saline 100ml IV soln 100 ML IV ONE (17:30)
[2021-08-17 17:31] LABS: CLARITY,URINE CLOUDY (Clear); COLOR,URINE YELLOW (Yellow); GLUCOSE, URINE NEGATIVE (Neg); KETONES,URINE NEGATIVE (Neg); LEUKOCYTE ESTERASE ,URINE LARGE (Neg); NITRITES, URINE POSITIVE (Neg); OCCULT BLOOD,URINE SMALL (Neg); PH,URINE 5.5 (4.8-8.0); PROTEIN,URINE 30 mg/dl (Neg); UROBILINOGEN,URINE 0.2 E.U/dL (0.2-1.0)
[2021-08-17 17:44] LABS: URINE AMPHETAMINE SCREEN NEGATIVE (Neg); URINE BARBITUATE SCREEN NEGATIVE (Neg); URINE BENZODIAZEPINES SCREEN NEGATIVE (Neg); URINE CANNABINOID SCREEN NEGATIVE (Neg); URINE COCAINE SCREEN NEGATIVE (Neg); URINE METHADONE SCREEN NEGATIVE (Neg); URINE OPIATE SCREEN NEGATIVE (Neg); URINE PHENCYCLIDINE SCREEN NEGATIVE (Neg)
[2021-08-17 17:45] LABS: BACTERIA,URINE 1+ /HPF (Neg); MUCUS STRANDS FEW /LPF (Neg); SQUAMOUS EPITHELIAL CELL,UR FEW /LPF (FEW); WBC,URINE 50-100 /HPF (0-4)
[2021-08-17] MEDS ORDERED: BUSP15TA12 PO (17:52)
[2021-08-17] MEDS ORDERED: ASPI-1265 PO (17:52)
[2021-08-17] MEDS ORDERED: LISI2.5T14 PO (17:53)
[2021-08-17] MEDS: K and/or MAG REPLACEMENT MC SCH (20:00)
--- NOTE | 2021-08-17 20:18 | NUR ---
Wound photos taken
--- NOTE | 2021-08-17 20:33 | NUR ---
RN found maggots in pt's wound. RN used tweezers to remove 10+ maggots.
--- NOTE | 2021-08-17 20:51 | NUR ---
Report called to airplane dispatcher
[2021-08-17] MEDS: heparin, porcine 5000 units/ml vial SQ SCH (21:41)
[2021-08-17] MEDS: busPIRone 15mg tablet PO SCH (21:41)
[2021-08-17] MEDS: HYDROcodone/acetaminophen 10/325mg tab PO PRN (21:41)
[2021-08-17] MEDS: docusate sod 100mg capsule PO SCH (21:42)
--- NOTE | 2021-08-17 22:00 | NUR ---
Received pt from ED via stephany. Vitals taken. Needs met.
[2021-08-17 22:30] VITALS: BP 149/79
[2021-08-18] VITALS (19 sets, daily range): BP systolic 93–173; BP diastolic 40–80
[2021-08-18] MEDS: piperacillin/tazo 3.375gm/50ml 50 ML IV SCH ×3 (00:11→21:23)
[2021-08-18] MEDS: normal saline 1000ml 1,000 ML IV SCH ×3 (02:36→22:45)
[2021-08-18] MEDS: HYDROcodone/acetaminophen 10/325mg tab PO PRN ×3 (02:39→21:27)
[2021-08-18] MEDS: vancomycin/NS 1 GM ADD-VANTAGE 250 ML IV SCH ×2 (04:52→18:43)
[2021-08-18 05:53] LABS: WHITE BLOOD COUNT 25.4 X10'3 (4.5-11.0)
[2021-08-18 07:18] LABS: BASOPHILS # (AUTO) 0.3 X10'3 (0-0.2); BASOPHILS % (AUTO) 1.1 % (0-1); EOSINOPHILS % (AUTO) 3.8 % (0-6); LYMPHOCYTES # (AUTO) 1.7 X10'3 (1.1-4.8); LYMPHOCYTES % (AUTO) 6.9 % (21-51); MEAN PLATELET VOLUME 9.5 FL (7.4-10.4); MONOCYTES # (AUTO) 1.3 X10'3 (0-0.9); NEUTROPHILS # (AUTO) 20.9 X10'3 (1.8-7.7); NEUTROPHILS % (AUTO) 83.2 % (42-75); PLATELET COUNT 771 X10'3 (140-440); RED BLOOD COUNT 7.58 X10'6 (4.20-5.60)
[2021-08-18 07:21] LABS: WHITE BLOOD COUNT 25.1 X10'3 (4.5-11.0)
[2021-08-18 07:42] LABS: HEMATOCRIT 45.3 % (35.0-45.0); HEMOGLOBIN 13.8 g/dl (12.0-16.0); MEAN CORPUSCULAR VOLUME 59.8 FL (78-98)
[2021-08-18 07:43] LABS: MEAN CORPUSCULAR HEMOGLOBIN 18.3 PG (27.0-31.0); MEAN CORPUSCULAR HGB CONC 30.6 g/dL (33.0-36.5); RED CELL DISTRIBUTION WIDTH 22.9 % (11.5-14.5)
--- NOTE | 2021-08-18 07:55 | NUR ---
Patient in room ORTHO 4022. I have received report from genesis arango and had the opportunity to ask questions and assume patient care.
[2021-08-18] MEDS: lisinopril 2.5mg tablet PO SCH (08:00)
[2021-08-18] MEDS: nicotine 14mg patch - 24hr TD SCH (08:00)
[2021-08-18] MEDS: heparin, porcine 5000 units/ml vial SQ SCH ×2 (08:00→20:03)
[2021-08-18] MEDS: K and/or MAG REPLACEMENT MC SCH ×2 (08:00→20:00)
[2021-08-18] MEDS: levoTHYROXINE 25mcg tablet PO SCH (08:00)
[2021-08-18] MEDS: docusate sod 100mg capsule PO SCH ×2 (08:00→20:02)
[2021-08-18 08:04] LABS: ALANINE AMINOTRANSFERASE 10 U/L (12-78); ALBUMIN 2.6 G/DL (3.4-5.0); ALBUMIN/GLOBULIN RATIO 0.8 (1.1-1.5); ALKALINE PHOSPHATASE 115 IU/L (46-116); ANION GAP 9 (8-16); ASPARTATE AMINO TRANSFERASE 19 U/L (10-37); BILIRUBIN,TOTAL 0.4 MG/DL (0.1-1.0); BLOOD UREA NITROGEN 12 MG/DL (7-18); BUN/CREATININE RATIO 22.6 (6.6-38.0); CALCIUM 7.9 MG/DL (8.5-10.1); CHLORIDE 111 MMOL/L (99-107); CREATININE 0.53 MG/DL (0.40-0.90); GLUCOSE 75 MG/DL (70-104); POTASSIUM 3.5 MMOL/L (3.5-5.1); SODIUM 142 MMOL/L (135-145); TOTAL CARBON DIOXIDE 22.3 MMOL/L (24-32); TOTAL PROTEIN 5.9 G/DL (6.4-8.2); eGFR > 90 ML/MIN
[2021-08-18 08:15] LABS: NUCLEATED RED BLOOD CELLS 1 /100WBC (0-0); PLATELET ESTIMATE INCREASED; TOTAL CELLS COUNTED 100
[2021-08-18 08:16] LABS: ANISOCYTOSIS 3+; LARGE PLATELETS MODERATE; MICROCYTOSIS 2+
[2021-08-18 08:18] LABS: ELLIPTOCYTES 1+; POLYCHROMASIA 1+; TARGET CELLS FEW
[2021-08-18 08:19] LABS: GIANT PLATELET FEW
--- NOTE | 2021-08-18 08:56 | NUR ---
trying to get ahold of dr Santana to see what what he wants on hold for surgery.
--- NOTE | 2021-08-18 09:05 | NUR ---
per dr mendez he said to hold all other pt meds except the BuSpar and Zosyn. those may be given
--- NOTE | 2021-08-18 09:12 | NUR ---
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 Per EMR pt pending AKA at this time. Pt with an active heart healthy diet order however currently NPO for OR. Per EMR pt with h/o T2DM however per H&P pt denies DM. Current A1c is 5.8% which does not meet ADA guidelines for DM dx. No documented BM since admit, pt with routine bowel care available. No appropriate nutrition intervention at this time in view of NPO status. Will continue to follow closely and make recommendations as appropriate. Recommendations: 1) Liberalize to regular diet 2) Monitor need for ONS/additional protein post-op 3) Routine bowel care 4) Scaled weight this admit; subsequent weekly scaled weights Addendum: 08/18/21 at [address] Amended: Links added.
[2021-08-18] MEDS: busPIRone 15mg tablet PO SCH ×3 (09:17→20:03)
[2021-08-18] MEDS ORDERED: labetalol 20mg/4ml (5mg/ml) syringe IV PRN (14:20)
[2021-08-18] MEDS ORDERED: fentaNYL/PF 50MCG/1 ML 2ML syringe IV PRN ×2 (14:20)
[2021-08-18] MEDS ORDERED: hydrALAZINE 20mg/ml inj. IV PRN (14:20)
[2021-08-18] MEDS ORDERED: ringers solution, lacted 1,000 ML IV SCH (14:20)
[2021-08-18] MEDS ORDERED: morphine 2 MG/ML inj. syringe IV PRN (14:20)
[2021-08-18] MEDS ORDERED: morphine 4 MG/ML inj SYRINge IV PRN (14:20)
[2021-08-18] MEDS ORDERED: ondansetron/PF 4mg/2ml inj IV PRN (14:20)
[2021-08-18] MEDS ORDERED: MIDAZolam 1 MG/ML 5ML VIAL ONE (14:22)
[2021-08-18] MEDS ORDERED: fentaNYL/PF 50MCG/1 ML 2ML syringe ONE ×2 (14:22→15:02)
[2021-08-18] MEDS ORDERED: etomidate 2mg/ml inj. ONE (14:24)
--- NOTE | 2021-08-18 15:23 | NUR ---
Received from OR via BED , accompanied by Anesthesiologist and report given by FRANCISCO Anesthesiolgist. PATIENT UNCONSCIOUS WITH ORAL AIRWAY, NO S/S OF PAIN, V/S WNL, PIV 20G RUE, DRESSING RIGHT LOWER LEG TO RIGHT SIDE CDI CONNECTED TO WOUNDVAC DRAIN. WILL KEEP MONITORING PATIENT. Addendum: 08/18/21 at 1547 by Vicente Salas RN Amended: Links added.
--- NOTE | 2021-08-18 16:18 | NUR ---
PATIENT HAS MET ALL CRITERIA FOR TRANSFER TO ORTHO FLOOR. VSS. DRESSINGS INTACT. BED LOW, CALL LIGHT PRESENT AND 2 RAILS UP. RN PRESENT TO ACCEPT CARE OF PATIENT AND REPORT HAS BEEN CALLED. ALL QUESTIONS ANSWERED TO ACCEPTING RN. Addendum: 08/18/21 at 1644 by Vicente Salas RN Amended: Links added.
--- NOTE | 2021-08-18 16:21 | NUR ---
Patient in room ORTHO 4022. I have received report from ailyn martinez rn and had the opportunity to ask questions and assume patient care.
[2021-08-18] MEDS ORDERED: piperacillin/tazo 3.375gm/50ml 50 ML IV SCH (18:17)
--- NOTE | 2021-08-18 18:33 | NUR ---
Patient in room ORTHO 4022. I have received report from MASSIMO Pimentel and had the opportunity to ask questions and assume patient care.
--- NOTE | 2021-08-18 19:35 | NUR ---
Problems reprioritized. Patient report given, questions answered & plan of care reviewed with liv arango.
[2021-08-19 02:00] VITALS: BP 149/80
[2021-08-19] MEDS: HYDROcodone/acetaminophen 10/325mg tab PO PRN ×4 (02:46→19:10)
[2021-08-19] MEDS: piperacillin/tazo 3.375gm/50ml 50 ML IV SCH ×3 (04:51→21:02)
[2021-08-19 06:00] VITALS: BP 144/72
[2021-08-19 06:12] LABS: EOSINOPHILS # (AUTO) 0.9 X10'3 (0-0.9); HEMOGLOBIN 13.5 g/dl (12.0-16.0); MEAN CORPUSCULAR VOLUME 61.6 FL (78-98); RED CELL DISTRIBUTION WIDTH 24.9 % (11.5-14.5)
[2021-08-19 06:15] LABS: BASOPHILS # (AUTO) 0.1 X10'3 (0-0.2); BASOPHILS % (AUTO) 0.6 % (0-1); LYMPHOCYTES # (AUTO) 1.3 X10'3 (1.1-4.8); MEAN CORPUSCULAR HGB CONC 29.3 g/dL (33.0-36.5); MEAN PLATELET VOLUME 9.8 FL (7.4-10.4); MONOCYTES # (AUTO) 0.9 X10'3 (0-0.9); NEUTROPHILS # (AUTO) 18.9 X10'3 (1.8-7.7); NEUTROPHILS % (AUTO) 85.4 % (42-75); PLATELET COUNT 720 X10'3 (140-440); RED BLOOD COUNT 7.46 X10'6 (4.20-5.60); WHITE BLOOD COUNT 22.1 X10'3 (4.5-11.0)
--- NOTE | 2021-08-19 06:21 | NUR ---
Problems reprioritized. Patient report given, questions answered & plan of care reviewed with MASSIMO Ohara.
[2021-08-19 06:35] LABS: ALANINE AMINOTRANSFERASE 13 U/L (12-78); ALBUMIN 2.5 G/DL (3.4-5.0); ALBUMIN/GLOBULIN RATIO 0.7 (1.1-1.5); ALKALINE PHOSPHATASE 110 IU/L (46-116); ANION GAP 8 (8-16); ASPARTATE AMINO TRANSFERASE 34 U/L (10-37); BILIRUBIN,TOTAL 0.5 MG/DL (0.1-1.0); BLOOD UREA NITROGEN 9 MG/DL (7-18); BUN/CREATININE RATIO 17.3 (6.6-38.0); CHLORIDE 109 MMOL/L (99-107); CREATININE 0.52 MG/DL (0.40-0.90); GLUCOSE 76 MG/DL (70-104); SODIUM 141 MMOL/L (135-145); TOTAL CARBON DIOXIDE 24.2 MMOL/L (24-32); TOTAL PROTEIN 5.9 G/DL (6.4-8.2); eGFR > 90 ML/MIN
[2021-08-19 06:37] LABS: POTASSIUM 3.7 MMOL/L (3.5-5.1)
[2021-08-19 06:56] LABS: ANISOCYTOSIS 3+; MICROCYTOSIS 2+; PLATELET ESTIMATE INCREASED; POIKILOCYTOSIS FEW; POLYCHROMASIA FEW
[2021-08-19] MEDS: vancomycin/NS 1 GM ADD-VANTAGE 250 ML IV SCH ×2 (08:03→19:11)
[2021-08-19] MEDS: docusate sod 100mg capsule PO SCH ×2 (08:04→20:12)
[2021-08-19] MEDS: levoTHYROXINE 25mcg tablet PO SCH (08:04)
[2021-08-19] MEDS: heparin, porcine 5000 units/ml vial SQ SCH ×2 (08:04→20:12)
[2021-08-19] MEDS: busPIRone 15mg tablet PO SCH ×3 (08:04→20:12)
[2021-08-19] MEDS: lisinopril 2.5mg tablet PO SCH (08:04)
[2021-08-19] MEDS: nicotine 14mg patch - 24hr TD SCH (08:06)
[2021-08-19] MEDS: normal saline 1000ml 1,000 ML IV SCH ×2 (08:45→18:45)
[2021-08-19 10:00] VITALS: BP 158/66
[2021-08-19] MEDS: K and/or MAG REPLACEMENT MC SCH ×2 (12:25→20:00)
[2021-08-19 14:00] VITALS: BP 144/54
[2021-08-19] MEDS ORDERED: VANCOMYCIN LEVEL IV ONE (16:30)
--- NOTE | 2021-08-19 18:45 | NUR ---
Patient in room ORTHO 4022. I have received report from MASSIMO Ohara and had the opportunity to ask questions and assume patient care.
[2021-08-19 18:46] VITALS: BP 166/78
[2021-08-19] MEDS: temazepam 15mg capsule PO PRN (21:01)
[2021-08-19 22:00] VITALS: BP 163/62
[2021-08-20] MEDS: normal saline 1000ml 1,000 ML IV SCH ×2 (00:57→13:02)
[2021-08-20] MEDS: piperacillin/tazo 3.375gm/50ml 50 ML IV SCH (04:08)
[2021-08-20 06:00] VITALS: BP 160/90
--- NOTE | 2021-08-20 06:05 | NUR ---
Patient in room ORTHO 4022. I have received report from Aravind and had the opportunity to ask questions and assume patient care.
--- NOTE | 2021-08-20 06:08 | NUR ---
Problems reprioritized. Patient report given, questions answered & plan of care reviewed with MASSIMO Arana.
[2021-08-20 06:37] LABS: HEMOGLOBIN 13.6 g/dl (12.0-16.0); LYMPHOCYTES # (AUTO) 1.3 X10'3 (1.1-4.8); MEAN CORPUSCULAR VOLUME 62.3 FL (78-98); NEUTROPHILS % (AUTO) 82.1 % (42-75); RED CELL DISTRIBUTION WIDTH 25.3 % (11.5-14.5)
[2021-08-20 06:39] LABS: BASOPHILS # (AUTO) 0.3 X10'3 (0-0.2); BASOPHILS % (AUTO) 1.4 % (0-1); LYMPHOCYTES % (AUTO) 6.5 % (21-51); MEAN CORPUSCULAR HEMOGLOBIN 18.5 PG (27.0-31.0); MEAN CORPUSCULAR HGB CONC 29.7 g/dL (33.0-36.5); MEAN PLATELET VOLUME 8.9 FL (7.4-10.4); PLATELET COUNT 635 X10'3 (140-440); RED BLOOD COUNT 7.38 X10'6 (4.20-5.60); WHITE BLOOD COUNT 19.5 X10'3 (4.5-11.0)
[2021-08-20 07:03] LABS: ALANINE AMINOTRANSFERASE 13 U/L (12-78); ALBUMIN 2.5 G/DL (3.4-5.0); ALBUMIN/GLOBULIN RATIO 0.7 (1.1-1.5); ALKALINE PHOSPHATASE 187 IU/L (46-116); ANION GAP 10 (8-16); ASPARTATE AMINO TRANSFERASE 22 U/L (10-37); BILIRUBIN,TOTAL 0.5 MG/DL (0.1-1.0); BLOOD UREA NITROGEN 11 MG/DL (7-18); BUN/CREATININE RATIO 19.6 (6.6-38.0); CALCIUM 7.9 MG/DL (8.5-10.1); CHLORIDE 110 MMOL/L (99-107); CREATININE 0.56 MG/DL (0.40-0.90); GLUCOSE 94 MG/DL (70-104); POTASSIUM 3.3 MMOL/L (3.5-5.1); SODIUM 145 MMOL/L (135-145); TOTAL CARBON DIOXIDE 25.1 MMOL/L (24-32); TOTAL PROTEIN 5.9 G/DL (6.4-8.2); eGFR > 90 ML/MIN
[2021-08-20 07:49] LABS: ANISOCYTOSIS 3+; ELLIPTOCYTES 1+; HYPOCHROMASIA 1+; MICROCYTOSIS 2+; PLATELET ESTIMATE INCREASED; POLYCHROMASIA FEW; TARGET CELLS FEW
[2021-08-20 07:50] LABS: LARGE PLATELETS MODERATE; POIKILOCYTOSIS FEW
[2021-08-20] MEDS: docusate sod 100mg capsule PO SCH (08:00)
[2021-08-20] MEDS: K and/or MAG REPLACEMENT MC SCH ×2 (08:00→20:00)
[2021-08-20 08:06] VITALS: BP 172/78
[2021-08-20] MEDS: vancomycin/NS 1 GM ADD-VANTAGE 250 ML IV SCH ×2 (08:06→19:52)
[2021-08-20] MEDS: HYDROcodone/acetaminophen 10/325mg tab PO PRN ×3 (08:06→19:48)
[2021-08-20] MEDS: levoTHYROXINE 25mcg tablet PO SCH (08:09)
[2021-08-20] MEDS: busPIRone 15mg tablet PO SCH ×3 (08:09→19:49)
[2021-08-20] MEDS: lisinopril 2.5mg tablet PO SCH (08:10)
[2021-08-20] MEDS: heparin, porcine 5000 units/ml vial SQ SCH ×2 (08:11→19:50)
[2021-08-20] MEDS: nicotine 14mg patch - 24hr TD SCH (08:12)
[2021-08-20 10:00] VITALS: BP 150/53
[2021-08-20 18:00] VITALS: BP 169/74
--- NOTE | 2021-08-20 18:30 | NUR ---
Problems reprioritized. Patient report given, questions answered & plan of care reviewed with Aravind.
[2021-08-20] MEDS: POTASSIUM BICARB 20meq eff tab 20 MEQ TABLET.EFF PO PRN (19:59)
[2021-08-20 22:00] VITALS: BP_SYST 184; BP_SYST 88; BP_DIAS 47; BP_DIAS 76
[2021-08-20] MEDS: temazepam 15mg capsule PO PRN (23:57)
[2021-08-20] MEDS: magnesium hydroxide 30ml (MOM) UD suspension PO PRN (23:58)
[2021-08-21] MEDS: normal saline 1000ml 1,000 ML IV SCH ×4 (00:45→21:13)
[2021-08-21 03:30] VITALS: BP 177/78
--- NOTE | 2021-08-21 04:03 | NUR ---
notified Dr Sapp of patients High Blood pressures, last one being 177/78. I informed Dr. patient takes Lisinopril 2.5mg daily, new order was given to increase dose to Lisinopril 15mg PO daily. New order read back and clarified to . Order will be changed to new order. Will continue to monitor patients BP.
[2021-08-21] MEDS: HYDROcodone/acetaminophen 10/325mg tab PO PRN ×3 (04:49→15:53)
[2021-08-21 05:37] LABS: EOSINOPHILS # (AUTO) 0.9 X10'3 (0-0.9); EOSINOPHILS % (AUTO) 4.5 % (0-6); HEMOGLOBIN 13.4 g/dl (12.0-16.0); LYMPHOCYTES # (AUTO) 1.2 X10'3 (1.1-4.8); MEAN CORPUSCULAR VOLUME 61.8 FL (78-98); NEUTROPHILS % (AUTO) 79.9 % (42-75)
[2021-08-21 05:40] LABS: BASOPHILS # (AUTO) 0.4 X10'3 (0-0.2); BASOPHILS % (AUTO) 2.3 % (0-1); HEMATOCRIT 45.7 % (35.0-45.0); LYMPHOCYTES % (AUTO) 6.3 % (21-51); MEAN CORPUSCULAR HEMOGLOBIN 18.1 PG (27.0-31.0); MEAN CORPUSCULAR HGB CONC 29.3 g/dL (33.0-36.5); MEAN PLATELET VOLUME 9.3 FL (7.4-10.4); MONOCYTES # (AUTO) 1.3 X10'3 (0-0.9); NEUTROPHILS # (AUTO) 15.3 X10'3 (1.8-7.7); PLATELET COUNT 613 X10'3 (140-440); RED CELL DISTRIBUTION WIDTH 25.7 % (11.5-14.5); WHITE BLOOD COUNT 19.1 X10'3 (4.5-11.0)
[2021-08-21 06:00] VITALS: BP 154/78
[2021-08-21 06:08] LABS: TOTAL CELLS COUNTED 100
[2021-08-21 06:09] LABS: ANISOCYTOSIS 3+; GIANT PLATELET FEW; MICROCYTOSIS 2+; PLATELET ESTIMATE INCREASED
[2021-08-21 06:10] LABS: ELLIPTOCYTES 1+; HYPOCHROMASIA 1+; LARGE PLATELETS FEW; TARGET CELLS FEW
--- NOTE | 2021-08-21 06:11 | NUR ---
Problems reprioritized. Patient report given, questions answered & plan of care reviewed with MASSIMO Stokes.
[2021-08-21 06:12] LABS: ALANINE AMINOTRANSFERASE 16 U/L (12-78); ALBUMIN 2.6 G/DL (3.4-5.0); ALBUMIN/GLOBULIN RATIO 0.7 (1.1-1.5); ALKALINE PHOSPHATASE 139 IU/L (46-116); ANION GAP 10 (8-16); ASPARTATE AMINO TRANSFERASE 23 U/L (10-37); BILIRUBIN,TOTAL 0.6 MG/DL (0.1-1.0); BLOOD UREA NITROGEN 9 MG/DL (7-18); BUN/CREATININE RATIO 19.1 (6.6-38.0); CALCIUM 8.5 MG/DL (8.5-10.1); CHLORIDE 110 MMOL/L (99-107); CREATININE 0.47 MG/DL (0.40-0.90); GLUCOSE 93 MG/DL (70-104); POTASSIUM 3.4 MMOL/L (3.5-5.1); SODIUM 146 MMOL/L (135-145); TOTAL CARBON DIOXIDE 26.3 MMOL/L (24-32); TOTAL PROTEIN 6.1 G/DL (6.4-8.2); eGFR > 90 ML/MIN
--- NOTE | 2021-08-21 06:39 | NUR ---
Patient in room ORTHO 4022B. I have received report from MASSIMO ZHAO and had the opportunity to ask questions and assume patient care.
[2021-08-21] MEDS: POTASSIUM BICARB 20meq eff tab 20 MEQ TABLET.EFF PO PRN ×3 (07:56→18:50)
[2021-08-21] MEDS: levoTHYROXINE 25mcg tablet PO SCH (07:57)
[2021-08-21] MEDS: busPIRone 15mg tablet PO SCH ×3 (07:57→20:00)
[2021-08-21] MEDS: nicotine 14mg patch - 24hr TD SCH (07:58)
[2021-08-21] MEDS: heparin, porcine 5000 units/ml vial SQ SCH ×2 (07:58→19:59)
[2021-08-21] MEDS ORDERED: lisinopril 10 MG tablet PO SCH (08:00)
[2021-08-21] MEDS: K and/or MAG REPLACEMENT MC SCH ×2 (08:00→19:38)
--- NOTE | 2021-08-21 08:47 | NUR ---
Reassessment: Pt underwent debridement of R BKA and had a wound VAC placed per EMR. Continues on Heart Healthy diet w/ mostly 100% intake meeting needs at this time, though recommend liberalizing to Regular diet given no significant diet-related cardiac hx in EMR. LBM 08/17 receiving PRN bowel care. No nutrition intervention implemented at this time, will continue to monitor. Recommendations: 1) Liberalize to regular diet 2) Routine bowel care 3) Scaled weight this admit; subsequent weekly scaled weights Addendum: 08/21/21 at [address] Amended: Links added.
[2021-08-21 10:00] VITALS: BP 161/66
[2021-08-21] MEDS: vancomycin/NS 1 GM ADD-VANTAGE 250 ML IV SCH (10:15)
[2021-08-21] MEDS: lisinopril 10 MG tablet PO SCH (10:25)
[2021-08-21 18:00] VITALS: BP 166/74
--- NOTE | 2021-08-21 18:19 | NUR ---
Problems reprioritized. Patient report given, questions answered & plan of care reviewed with MASSIMO PACHECO.
[2021-08-21] MEDS: temazepam 15mg capsule PO PRN (21:11)
[2021-08-21] MEDS: VANCOmycin 1250MG/NS 250ml Bag 250 ML IV SCH (21:17)
[2021-08-21 22:00] VITALS: BP 167/53
[2021-08-22] VITALS (7 sets, daily range): BP systolic 130–186; BP diastolic 57–107
[2021-08-22] MEDS: HYDROcodone/acetaminophen 10/325mg tab PO PRN ×4 (02:00→22:29)
[2021-08-22 05:33] LABS: LYMPHOCYTES # (AUTO) 1.3 X10'3 (1.1-4.8); RED CELL DISTRIBUTION WIDTH 25.6 % (11.5-14.5)
[2021-08-22 05:38] LABS: BASOPHILS # (AUTO) 0.3 X10'3 (0-0.2); BASOPHILS % (AUTO) 1.6 % (0-1); EOSINOPHILS # (AUTO) 0.9 X10'3 (0-0.9); EOSINOPHILS % (AUTO) 4.7 % (0-6); HEMATOCRIT 45.2 % (35.0-45.0); HEMOGLOBIN 13.2 g/dl (12.0-16.0); LYMPHOCYTES % (AUTO) 6.4 % (21-51); MEAN CORPUSCULAR HEMOGLOBIN 18.1 PG (27.0-31.0); MEAN CORPUSCULAR HGB CONC 29.2 g/dL (33.0-36.5); MEAN CORPUSCULAR VOLUME 61.8 FL (78-98); MONOCYTES # (AUTO) 1.1 X10'3 (0-0.9); MONOCYTES % (AUTO) 5.4 % (2-12); NEUTROPHILS # (AUTO) 16.6 X10'3 (1.8-7.7); NEUTROPHILS % (AUTO) 81.9 % (42-75); PLATELET COUNT 557 X10'3 (140-440); RED BLOOD COUNT 7.31 X10'6 (4.20-5.60); WHITE BLOOD COUNT 20.2 X10'3 (4.5-11.0)
[2021-08-22 05:51] LABS: ALANINE AMINOTRANSFERASE 36 U/L (12-78); ALBUMIN 2.5 G/DL (3.4-5.0); ALBUMIN/GLOBULIN RATIO 0.7 (1.1-1.5); ALKALINE PHOSPHATASE 186 IU/L (46-116); ANION GAP 8 (8-16); ASPARTATE AMINO TRANSFERASE 33 U/L (10-37); BILIRUBIN,TOTAL 0.7 MG/DL (0.1-1.0); BLOOD UREA NITROGEN 11 MG/DL (7-18); BUN/CREATININE RATIO 20.8 (6.6-38.0); CALCIUM 8.1 MG/DL (8.5-10.1); CHLORIDE 107 MMOL/L (99-107); CREATININE 0.53 MG/DL (0.40-0.90); GLUCOSE 90 MG/DL (70-104); SODIUM 141 MMOL/L (135-145); TOTAL CARBON DIOXIDE 26.3 MMOL/L (24-32); TOTAL PROTEIN 6.1 G/DL (6.4-8.2); eGFR > 90 ML/MIN
[2021-08-22 06:01] LABS: ANISOCYTOSIS 3+; MICROCYTOSIS 2+; PLATELET ESTIMATE INCREASED; TOTAL CELLS COUNTED 100
[2021-08-22 06:02] LABS: ELLIPTOCYTES 1+; POLYCHROMASIA FEW
[2021-08-22 06:03] LABS: LARGE PLATELETS FEW; TARGET CELLS 1+
[2021-08-22] MEDS: VANCOmycin 1250MG/NS 250ml Bag 250 ML IV SCH ×2 (07:00→19:51)
--- NOTE | 2021-08-22 07:13 | NUR ---
Patient in room ORTHO 4022B. I have received report from MASSIMO PACHECO and had the opportunity to ask questions and assume patient care.
[2021-08-22] MEDS: K and/or MAG REPLACEMENT MC SCH ×2 (08:00→20:00)
[2021-08-22] MEDS: lisinopril 10 MG tablet PO SCH (10:05)
[2021-08-22] MEDS: levoTHYROXINE 25mcg tablet PO SCH (10:05)
[2021-08-22] MEDS: busPIRone 15mg tablet PO SCH ×3 (10:06→19:55)
[2021-08-22] MEDS: nicotine 14mg patch - 24hr TD SCH (10:06)
[2021-08-22] MEDS: heparin, porcine 5000 units/ml vial SQ SCH ×2 (10:07→19:56)
[2021-08-22] MEDS: normal saline 1000ml 1,000 ML IV SCH ×2 (13:32→16:45)
[2021-08-22] MEDS ORDERED: cefTRIAXone 1g/NS 100ml IVPB 100 ML IV ONE (16:15)
--- NOTE | 2021-08-22 18:48 | NUR ---
Problems reprioritized. Patient report given, questions answered & plan of care reviewed with CLEMENTE CORNEJO RN.
--- NOTE | 2021-08-22 18:50 | NUR ---
Patient in room ORTHO 4022. I have received report from SHAQUILLE KEYS and had the opportunity to ask questions and assume patient care.
[2021-08-23] MEDS: normal saline 1000ml 1,000 ML IV SCH ×3 (00:43→22:01)
[2021-08-23] MEDS: HYDROcodone/acetaminophen 10/325mg tab PO PRN ×4 (03:40→21:56)
[2021-08-23 06:00] VITALS: BP 144/55
--- NOTE | 2021-08-23 06:25 | NUR ---
Problems reprioritized. Patient report given, questions answered & plan of care reviewed with KALEB KEYS.
[2021-08-23 06:51] LABS: BASOPHILS # (AUTO) 0.2 X10'3 (0-0.2); NEUTROPHILS # (AUTO) 17.4 X10'3 (1.8-7.7)
--- NOTE | 2021-08-23 06:52 | NUR ---
Patient in room ORTHO 4022. I have received report from Roslyn Mcgowan and had the opportunity to ask questions and assume patient care.
[2021-08-23 06:55] LABS: BASOPHILS % (AUTO) 0.9 % (0-1); EOSINOPHILS # (AUTO) 0.6 X10'3 (0-0.9); EOSINOPHILS % (AUTO) 3.1 % (0-6); HEMATOCRIT 45.7 % (35.0-45.0); HEMOGLOBIN 12.9 g/dl (12.0-16.0); LYMPHOCYTES # (AUTO) 0.7 X10'3 (1.1-4.8); LYMPHOCYTES % (AUTO) 3.6 % (21-51); MEAN CORPUSCULAR HEMOGLOBIN 17.9 PG (27.0-31.0); MEAN CORPUSCULAR HGB CONC 28.4 g/dL (33.0-36.5); MEAN CORPUSCULAR VOLUME 63.1 FL (78-98); MEAN PLATELET VOLUME 9.5 FL (7.4-10.4); MONOCYTES # (AUTO) 1.2 X10'3 (0-0.9); MONOCYTES % (AUTO) 5.8 % (2-12); NEUTROPHILS % (AUTO) 86.6 % (42-75); PLATELET COUNT 520 X10'3 (140-440); RED BLOOD COUNT 7.23 X10'6 (4.20-5.60); RED CELL DISTRIBUTION WIDTH 25.4 % (11.5-14.5)
[2021-08-23 07:13] LABS: ALANINE AMINOTRANSFERASE 55 U/L (12-78); ALBUMIN 2.3 G/DL (3.4-5.0); ALBUMIN/GLOBULIN RATIO 0.6 (1.1-1.5); ALKALINE PHOSPHATASE 184 IU/L (46-116); ANION GAP 7 (8-16); ASPARTATE AMINO TRANSFERASE 41 U/L (10-37); BILIRUBIN,TOTAL 0.4 MG/DL (0.1-1.0); BLOOD UREA NITROGEN 13 MG/DL (7-18); BUN/CREATININE RATIO 20.3 (6.6-38.0); CALCIUM 8.3 MG/DL (8.5-10.1); CHLORIDE 108 MMOL/L (99-107); CREATININE 0.64 MG/DL (0.40-0.90); GLUCOSE 103 MG/DL (70-104); POTASSIUM 4.2 MMOL/L (3.5-5.1); SODIUM 142 MMOL/L (135-145); TOTAL CARBON DIOXIDE 27.2 MMOL/L (24-32); TOTAL PROTEIN 5.9 G/DL (6.4-8.2); eGFR > 90 ML/MIN
[2021-08-23] MEDS: VANCOmycin 1250MG/NS 250ml Bag 250 ML IV SCH ×2 (07:15→19:16)
[2021-08-23] MEDS: levoTHYROXINE 25mcg tablet PO SCH (07:17)
[2021-08-23] MEDS: lisinopril 10 MG tablet PO SCH (07:17)
[2021-08-23] MEDS: heparin, porcine 5000 units/ml vial SQ SCH ×2 (07:18→21:56)
[2021-08-23] MEDS: aspirin 81mg tab.chew PO SCH (07:18)
[2021-08-23] MEDS: nicotine 14mg patch - 24hr TD SCH (07:18)
[2021-08-23] MEDS: busPIRone 15mg tablet PO SCH ×3 (07:18→21:56)
[2021-08-23] MEDS: clopidogrel 75mg tablet PO SCH (07:18)
[2021-08-23] MEDS ORDERED: cefTRIAXone 1g/NS 100ml IVPB 100 ML IV SCH (08:00)
[2021-08-23] MEDS: K and/or MAG REPLACEMENT MC SCH ×2 (08:00→20:00)
[2021-08-23] MEDS: magnesium hydroxide 30ml (MOM) UD suspension PO PRN (09:51)
[2021-08-23 10:00] VITALS: BP 130/44
[2021-08-23 11:48] LABS: ANISOCYTOSIS 3+; ELLIPTOCYTES 1+; LARGE PLATELETS MODERATE; MICROCYTOSIS 2+; PLATELET ESTIMATE INCREASED; POLYCHROMASIA 1+
[2021-08-23] MEDS ORDERED: morphine 2 MG/ML inj. syringe IV SCH ×2 (17:38→17:39)
[2021-08-23] MEDS ORDERED: morphine 2 MG/ML inj. syringe IV PRN (17:48)
[2021-08-23] MEDS: morphine 2 MG/ML inj. syringe IV PRN (17:52)
[2021-08-23 18:00] VITALS: BP 155/62
--- NOTE | 2021-08-23 18:30 | NUR ---
Problems reprioritized. Patient report given, questions answered & plan of care reviewed with Romelia.
--- NOTE | 2021-08-23 18:32 | NUR ---
Patient in room ORTHO 4022. I have received report from KALEB KEYS and had the opportunity to ask questions and assume patient care.
[2021-08-23 22:00] VITALS: BP 158/76
[2021-08-24] VITALS (8 sets, daily range): BP systolic 166–196; BP diastolic 68–82
[2021-08-24 06:18] LABS: BASOPHILS # (AUTO) 0.3 X10'3 (0-0.2); HEMOGLOBIN 13.3 g/dl (12.0-16.0)
--- NOTE | 2021-08-24 06:18 | NUR ---
Problems reprioritized. Patient report given, questions answered & plan of care reviewed with WAYNE KEYS.
[2021-08-24 06:22] LABS: BASOPHILS % (AUTO) 1.6 % (0-1); EOSINOPHILS # (AUTO) 1.2 X10'3 (0-0.9); EOSINOPHILS % (AUTO) 5.6 % (0-6); HEMATOCRIT 45.3 % (35.0-45.0); LYMPHOCYTES # (AUTO) 1.2 X10'3 (1.1-4.8); LYMPHOCYTES % (AUTO) 5.7 % (21-51); MEAN CORPUSCULAR HEMOGLOBIN 18.2 PG (27.0-31.0); MEAN CORPUSCULAR HGB CONC 29.3 g/dL (33.0-36.5); MEAN CORPUSCULAR VOLUME 62.2 FL (78-98); MEAN PLATELET VOLUME 9.2 FL (7.4-10.4); MONOCYTES # (AUTO) 1.4 X10'3 (0-0.9); MONOCYTES % (AUTO) 6.6 % (2-12); NEUTROPHILS # (AUTO) 17.2 X10'3 (1.8-7.7); NEUTROPHILS % (AUTO) 80.5 % (42-75); PLATELET COUNT 589 X10'3 (140-440); RED BLOOD COUNT 7.29 X10'6 (4.20-5.60); RED CELL DISTRIBUTION WIDTH 24.9 % (11.5-14.5); WHITE BLOOD COUNT 21.4 X10'3 (4.5-11.0)
[2021-08-24 06:40] LABS: ALANINE AMINOTRANSFERASE 44 U/L (12-78); ALBUMIN 2.4 G/DL (3.4-5.0); ALBUMIN/GLOBULIN RATIO 0.7 (1.1-1.5); ALKALINE PHOSPHATASE 162 IU/L (46-116); ANION GAP 6 (8-16); ASPARTATE AMINO TRANSFERASE 26 U/L (10-37); BILIRUBIN,TOTAL 0.5 MG/DL (0.1-1.0); BLOOD UREA NITROGEN 13 MG/DL (7-18); BUN/CREATININE RATIO 22.4 (6.6-38.0); CALCIUM 8.3 MG/DL (8.5-10.1); CHLORIDE 108 MMOL/L (99-107); CREATININE 0.58 MG/DL (0.40-0.90); GLUCOSE 119 MG/DL (70-104); POTASSIUM 3.7 MMOL/L (3.5-5.1); SODIUM 141 MMOL/L (135-145); TOTAL CARBON DIOXIDE 26.8 MMOL/L (24-32); eGFR > 90 ML/MIN
--- NOTE | 2021-08-24 07:04 | NUR ---
Patient in room ORTHO 4022. I have received report from chikis diop rn and had the opportunity to ask questions and assume patient care.
[2021-08-24] MEDS: HYDROcodone/acetaminophen 10/325mg tab PO PRN ×3 (07:17→20:38)
[2021-08-24] MEDS: nicotine 14mg patch - 24hr TD SCH (07:18)
[2021-08-24] MEDS: lisinopril 10 MG tablet PO SCH (07:18)
[2021-08-24] MEDS: aspirin 81mg tab.chew PO SCH (07:18)
[2021-08-24] MEDS: clopidogrel 75mg tablet PO SCH (07:18)
[2021-08-24] MEDS: busPIRone 15mg tablet PO SCH ×3 (07:18→20:38)
[2021-08-24] MEDS: levoTHYROXINE 25mcg tablet PO SCH (07:18)
[2021-08-24] MEDS: heparin, porcine 5000 units/ml vial SQ SCH ×2 (07:19→20:38)
[2021-08-24] MEDS: VANCOmycin 1250MG/NS 250ml Bag 250 ML IV SCH ×2 (07:22→18:09)
[2021-08-24 07:42] LABS: ANISOCYTOSIS 3+; GIANT PLATELET FEW; LARGE PLATELETS MODERATE; MICROCYTOSIS 2+; PLATELET ESTIMATE INCREASED
[2021-08-24 07:43] LABS: ELLIPTOCYTES 1+; HYPOCHROMASIA 1+; POLYCHROMASIA FEW
[2021-08-24] MEDS: K and/or MAG REPLACEMENT MC SCH ×2 (08:00→20:00)
[2021-08-24] MEDS: normal saline 1000ml 1,000 ML IV SCH ×2 (08:45→16:33)
--- NOTE | 2021-08-24 10:05 | NUR ---
Page Sent PAGER ID: [phone] MESSAGE: [id number] Helm, pt morning bp was 191/79. waiting for the retake but gave morning lisinopril will recheck. 1342
[2021-08-24] MEDS: CefTRIAXone/D5W-Rocephin 1gm 50 ML IV SCH (10:25)
--- NOTE | 2021-08-24 10:37 | NUR ---
Page Sent PAGER ID: [phone] MESSAGE: [id number] tabitha, BP is now 166/73. do you want me to give the PRN hydralazine? or wait to see how it is later today? [id number]
--- NOTE | 2021-08-24 10:38 | NUR ---
per dr hadley wants to wait on hydralazine and check pt in about another hr or so and see where she is at. if she is still above 160 give the 10 mg hydralazine that prn in emar.
--- NOTE | 2021-08-24 15:22 | NUR ---
Page Sent PAGER ID: [phone] MESSAGE: [phone] ashley Helm. please call me about pt blood pressure [phone] yogesh
--- NOTE | 2021-08-24 15:33 | NUR ---
per dr hadley, will administer hydralazine as in emar. he will review blood pressure meds for possible adjustment
[2021-08-24] MEDS: magnesium hydroxide 30ml (MOM) UD suspension PO PRN (16:37)
[2021-08-24] MEDS: hydrALAZINE 20mg/ml inj. IV PRN ×2 (16:38→22:57)
--- NOTE | 2021-08-24 17:37 | NUR ---
Page Sent PAGER ID: [phone] MESSAGE: [id number] b, gave hydralazine at 1638 pt BP now is 182/74. she is on ns at 100 do you want to maybe bring that down to see if it helps? and anything else you want to do?
[2021-08-24] MEDS ORDERED: metoprolol tartrate 50mg tablet PO ONE (17:40)
--- NOTE | 2021-08-24 18:38 | NUR ---
Problems reprioritized. Patient report given, questions answered & plan of care reviewed with martínez arango.
--- NOTE | 2021-08-24 21:00 | NUR ---
Dr. Sapp notified of pts blood pressure 4hrs after Hydralizine was given was 190/79. wanted nurse to push a medication that can not be administered on our floor. Order to transfer pt to Tele.
--- NOTE | 2021-08-24 21:10 | NUR ---
Patient in room PCU 3020. I have received report from MASSIMO Nova and had the opportunity to ask questions and assume patient care.
--- NOTE | 2021-08-24 21:20 | NUR ---
Transfer to U: Patient report given, questions answered & plan of care reviewed with [Brianna KEYS]. Addendum: 08/24/21 at 2145 by Hannah Luna RN Amended: Links added.
--- NOTE | 2021-08-24 21:45 | NUR ---
pt arrived to the floor via hospital bed. settled in and resting.
[2021-08-25] VITALS (18 sets, daily range): BP systolic 114–192; BP diastolic 53–119
[2021-08-25] MEDS: HYDROcodone/acetaminophen 10/325mg tab PO PRN ×4 (02:09→20:09)
[2021-08-25] MEDS: normal saline 1000ml 1,000 ML IV SCH ×3 (04:55→23:03)
--- NOTE | 2021-08-25 06:33 | NUR ---
Problems reprioritized. Patient report given, questions answered & plan of care reviewed with MASSIMO Mitchell.
[2021-08-25 06:37] LABS: BASOPHILS # (AUTO) 0.3 X10'3 (0-0.2); RED BLOOD COUNT 7.63 X10'6 (4.20-5.60); RED CELL DISTRIBUTION WIDTH 24.9 % (11.5-14.5)
--- NOTE | 2021-08-25 06:39 | NUR ---
Patient in room PCU 3020. I have received report from MASSIMO Reed and had the opportunity to ask questions and assume patient care.
[2021-08-25 06:40] LABS: BASOPHILS % (AUTO) 1.6 % (0-1); EOSINOPHILS % (AUTO) 4.9 % (0-6); HEMATOCRIT 46.6 % (35.0-45.0); HEMOGLOBIN 13.7 g/dl (12.0-16.0); LYMPHOCYTES # (AUTO) 1.5 X10'3 (1.1-4.8); LYMPHOCYTES % (AUTO) 7.1 % (21-51); MEAN CORPUSCULAR HEMOGLOBIN 17.9 PG (27.0-31.0); MEAN CORPUSCULAR HGB CONC 29.3 g/dL (33.0-36.5); MEAN CORPUSCULAR VOLUME 61.1 FL (78-98); MEAN PLATELET VOLUME 9.3 FL (7.4-10.4); MONOCYTES # (AUTO) 1.3 X10'3 (0-0.9); MONOCYTES % (AUTO) 6.3 % (2-12); NEUTROPHILS % (AUTO) 80.1 % (42-75); PLATELET COUNT 724 X10'3 (140-440); WHITE BLOOD COUNT 21.2 X10'3 (4.5-11.0)
[2021-08-25 06:46] LABS: ALANINE AMINOTRANSFERASE 51 U/L (12-78); ALBUMIN 2.4 G/DL (3.4-5.0); ALBUMIN/GLOBULIN RATIO 0.6 (1.1-1.5); ALKALINE PHOSPHATASE 166 IU/L (46-116); ANION GAP 8 (8-16); ASPARTATE AMINO TRANSFERASE 29 U/L (10-37); BILIRUBIN,TOTAL 0.5 MG/DL (0.1-1.0); BLOOD UREA NITROGEN 10 MG/DL (7-18); BUN/CREATININE RATIO 17.9 (6.6-38.0); CALCIUM 8.4 MG/DL (8.5-10.1); CHLORIDE 108 MMOL/L (99-107); CREATININE 0.56 MG/DL (0.40-0.90); GLUCOSE 91 MG/DL (70-104); POTASSIUM 3.5 MMOL/L (3.5-5.1); SODIUM 143 MMOL/L (135-145); TOTAL CARBON DIOXIDE 27.3 MMOL/L (24-32); TOTAL PROTEIN 6.1 G/DL (6.4-8.2); eGFR > 90 ML/MIN
[2021-08-25] MEDS: VANCOmycin 1250MG/NS 250ml Bag 250 ML IV SCH ×2 (07:36→19:00)
[2021-08-25] MEDS: lisinopril 10 MG tablet PO SCH (07:39)
[2021-08-25] MEDS: clopidogrel 75mg tablet PO SCH (07:39)
[2021-08-25] MEDS: aspirin 81mg tab.chew PO SCH (07:39)
[2021-08-25] MEDS: nicotine 14mg patch - 24hr TD SCH (07:39)
[2021-08-25] MEDS: heparin, porcine 5000 units/ml vial SQ SCH ×2 (07:40→20:09)
[2021-08-25] MEDS: levoTHYROXINE 25mcg tablet PO SCH (07:40)
[2021-08-25] MEDS: busPIRone 15mg tablet PO SCH ×3 (07:40→20:09)
[2021-08-25] MEDS: K and/or MAG REPLACEMENT MC SCH ×2 (08:00→19:40)
[2021-08-25] MEDS ORDERED: amLODIPine 5mg tablet PO SCH (08:15)
[2021-08-25] MEDS: CefTRIAXone/D5W-Rocephin 1gm 50 ML IV SCH (09:47)
[2021-08-25] MEDS ORDERED: LORazepam 1 MG tablet PO PRN (10:00)
[2021-08-25 11:15] LABS: PLATELET ESTIMATE INCREASED
[2021-08-25 11:18] LABS: ANISOCYTOSIS 3+; GIANT PLATELET FEW; LARGE PLATELETS MODERATE; MICROCYTOSIS 2+
[2021-08-25 11:19] LABS: ELLIPTOCYTES 1+; HYPOCHROMASIA 1+; POLYCHROMASIA 1+
[2021-08-25 11:20] LABS: POIKILOCYTOSIS 1+
[2021-08-25] MEDS: niCARDipine-NS 40mg/200ml IVPB 200 ML IV SCH ×2 (11:52→23:08)
--- NOTE | 2021-08-25 11:52 | NUR ---
nicardipine drip started by prerna Burt RN, with this RN present at bedside. Continuous BP monitoring started.
--- NOTE | 2021-08-25 15:17 | NUR ---
nicardipine drip rate decreased to 2mg/hour, witnessed by prerna Burt RN.
--- NOTE | 2021-08-25 18:15 | NUR ---
Problems reprioritized. Patient report given, questions answered & plan of care reviewed with MASSIMO Potter.
[2021-08-25] MEDS ORDERED: VANCOMYCIN LEVEL IV ONE (18:30)
--- NOTE | 2021-08-25 19:38 | NUR ---
pt's [address] Sapp's order. Trough came back critical 21.4. Pharmacy also notified of critical trough .
[2021-08-26] VITALS (9 sets, daily range): BP systolic 121–159; BP diastolic 66–85
[2021-08-26] MEDS: metroNIDAZOLE 500mg tablet PO SCH ×4 (00:16→23:08)
[2021-08-26] MEDS: HYDROcodone/acetaminophen 10/325mg tab PO PRN ×3 (00:16→12:26)
--- NOTE | 2021-08-26 06:07 | NUR ---
Patient in room PCU 3020. I have received report from MASSIMO Potter and had the opportunity to ask questions and assume patient care.
[2021-08-26 07:01] LABS: EOSINOPHILS # (AUTO) 1.2 X10'3 (0-0.9); EOSINOPHILS % (AUTO) 5.8 % (0-6); MEAN CORPUSCULAR VOLUME 61.7 FL (78-98); MEAN PLATELET VOLUME 9.3 FL (7.4-10.4)
[2021-08-26] MEDS: lisinopril 10 MG tablet PO SCH (07:11)
[2021-08-26] MEDS: aspirin 81mg tab.chew PO SCH (07:11)
[2021-08-26] MEDS: busPIRone 15mg tablet PO SCH ×3 (07:12→19:54)
[2021-08-26] MEDS: clopidogrel 75mg tablet PO SCH (07:12)
[2021-08-26] MEDS: levoTHYROXINE 25mcg tablet PO SCH (07:12)
[2021-08-26] MEDS: vancomycin/NS 1 GM ADD-VANTAGE 250 ML IV SCH ×2 (07:13→19:56)
[2021-08-26] MEDS: heparin, porcine 5000 units/ml vial SQ SCH ×2 (07:13→20:00)
[2021-08-26] MEDS: nicotine 14mg patch - 24hr TD SCH (07:13)
[2021-08-26 07:14] LABS: ALANINE AMINOTRANSFERASE 48 U/L (12-78); ALBUMIN 2.4 G/DL (3.4-5.0); ALBUMIN/GLOBULIN RATIO 0.7 (1.1-1.5); ALKALINE PHOSPHATASE 171 IU/L (46-116); ANION GAP 8 (8-16); ASPARTATE AMINO TRANSFERASE 29 U/L (10-37); BASOPHILS # (AUTO) 0.3 X10'3 (0-0.2); BASOPHILS % (AUTO) 1.4 % (0-1); BILIRUBIN,TOTAL 0.4 MG/DL (0.1-1.0); BLOOD UREA NITROGEN 13 MG/DL (7-18); BUN/CREATININE RATIO 21.7 (6.6-38.0); CALCIUM 8.4 MG/DL (8.5-10.1); CHLORIDE 109 MMOL/L (99-107); GLUCOSE 89 MG/DL (70-104); HEMATOCRIT 45.2 % (35.0-45.0); HEMOGLOBIN 13.5 g/dl (12.0-16.0); LYMPHOCYTES # (AUTO) 1.7 X10'3 (1.1-4.8); LYMPHOCYTES % (AUTO) 8.1 % (21-51); MEAN CORPUSCULAR HEMOGLOBIN 18.4 PG (27.0-31.0); MEAN CORPUSCULAR HGB CONC 29.8 g/dL (33.0-36.5); MONOCYTES # (AUTO) 1.5 X10'3 (0-0.9); MONOCYTES % (AUTO) 7.3 % (2-12); NEUTROPHILS # (AUTO) 16.3 X10'3 (1.8-7.7); NEUTROPHILS % (AUTO) 77.4 % (42-75); PLATELET COUNT 781 X10'3 (140-440); RED BLOOD COUNT 7.33 X10'6 (4.20-5.60); RED CELL DISTRIBUTION WIDTH 25.4 % (11.5-14.5); SODIUM 145 MMOL/L (135-145); TOTAL CARBON DIOXIDE 28.5 MMOL/L (24-32); eGFR > 90 ML/MIN
[2021-08-26] MEDS: POTASSIUM BICARB 20meq eff tab 20 MEQ TABLET.EFF PO PRN ×3 (07:23→16:33)
[2021-08-26 07:51] LABS: NUCLEATED RED BLOOD CELLS 1 /100WBC (0-0); PLATELET ESTIMATE INCREASED; TOTAL CELLS COUNTED 100
[2021-08-26 07:52] LABS: ANISOCYTOSIS 3+; GIANT PLATELET FEW; HYPOCHROMASIA 1+; LARGE PLATELETS MODERATE; MICROCYTOSIS 2+; POIKILOCYTOSIS 1+; POLYCHROMASIA 1+; TOXIC GRANULATION 1+
[2021-08-26] MEDS: K and/or MAG REPLACEMENT MC SCH ×2 (08:00→20:00)
[2021-08-26] MEDS ORDERED: potassium CL 10mEq/100ml bag 100 ML IV PRN (08:15)
[2021-08-26] MEDS ORDERED: POTASSIUM BICARB 20meq eff tab 20 MEQ TABLET.EFF PO PRN (08:15)
[2021-08-26] MEDS ORDERED: magnesium 4gm in 100ml NS 100 ML IV PRN (08:15)
[2021-08-26] MEDS ORDERED: magnesium 2GM in 50ml NS 50 ML IV PRN (08:15)
[2021-08-26] MEDS: CefTRIAXone/D5W-Rocephin 1gm 50 ML IV SCH (09:19)
[2021-08-26] MEDS ORDERED: heparin 10,000 units/1 ML INJ IV ONE (09:50)
[2021-08-26] MEDS ORDERED: heparin 25,000 UNIT/250ml bag 250 ML IV SCH (09:50)
[2021-08-26] MEDS ORDERED: heparin 10,000 units/1 ML INJ IV PRN (09:50)
[2021-08-26] MEDS: morphine 2 MG/ML inj. syringe IV PRN ×2 (11:36→19:31)
[2021-08-26] MEDS: NIFEdipine XL 30mg tablet PO SCH (11:37)
--- NOTE | 2021-08-26 11:59 | NUR ---
Reassessment: PO intake fluctuates, down to average 29% PO intake 08/24 however back up to average 88% PO intake 08/25. Pending documentation of PO intake for today. [facility] 08/25. Will continue to follow and monitor further trends in PO intake and need for possible nutrition intervention. Recommendations: 1) Liberalize to regular diet 2) Monitor need for ONS/additional protein 3) Routine bowel care 4) Scaled weight this admit; subsequent weekly scaled weights Addendum: 08/26/21 at [address] Amended: Links added.
[2021-08-26] MEDS: normal saline 1000ml 1,000 ML IV SCH ×3 (12:27→23:10)
[2021-08-26] MEDS: magnesium hydroxide 30ml (MOM) UD suspension PO PRN (13:27)
--- NOTE | 2021-08-26 18:34 | NUR ---
Patient in room PCU 3020. I have received report from Paula KEYS and had the opportunity to ask questions and assume patient care.
--- NOTE | 2021-08-26 18:39 | NUR ---
Problems reprioritized. Patient report given, questions answered & plan of care reviewed with MASSIMO Sotomayor and radha Painter RN.
[2021-08-26] MEDS ORDERED: K and/or MAG REPLACEMENT MC SCH (20:00)
[2021-08-27] VITALS (20 sets, daily range): BP systolic 110–172; BP diastolic 60–93
[2021-08-27] MEDS: morphine 2 MG/ML inj. syringe IV PRN ×2 (04:02→23:33)
--- NOTE | 2021-08-27 06:32 | NUR ---
Problems reprioritized. Patient report given, questions answered & plan of care reviewed with THAI KEYS.
--- NOTE | 2021-08-27 06:35 | NUR ---
Patient in room PCU 3020. I have received report from MASSIMO Sotomayor and radha Painter RN and had the opportunity to ask questions and assume patient care.
[2021-08-27 07:28] LABS: HEMATOCRIT 47.6 % (35.0-45.0); MEAN CORPUSCULAR HEMOGLOBIN 18.4 PG (27.0-31.0); MONOCYTES # (AUTO) 1.4 X10'3 (0-0.9); WHITE BLOOD COUNT 24.6 X10'3 (4.5-11.0)
[2021-08-27 07:30] LABS: BASOPHILS # (AUTO) 0.4 X10'3 (0-0.2); BASOPHILS % (AUTO) 1.5 % (0-1); EOSINOPHILS # (AUTO) 1.2 X10'3 (0-0.9); HEMOGLOBIN 14.1 g/dl (12.0-16.0); LYMPHOCYTES # (AUTO) 1.7 X10'3 (1.1-4.8); LYMPHOCYTES % (AUTO) 6.8 % (21-51); MEAN CORPUSCULAR HGB CONC 29.7 g/dL (33.0-36.5); MEAN PLATELET VOLUME 9.3 FL (7.4-10.4); MONOCYTES % (AUTO) 5.8 % (2-12); NEUTROPHILS # (AUTO) 19.9 X10'3 (1.8-7.7); NEUTROPHILS % (AUTO) 80.9 % (42-75); PLATELET COUNT 933 X10'3 (140-440); RED BLOOD COUNT 7.68 X10'6 (4.20-5.60); RED CELL DISTRIBUTION WIDTH 25.3 % (11.5-14.5)
[2021-08-27 07:35] LABS: ALANINE AMINOTRANSFERASE 50 U/L (12-78); ALBUMIN 2.8 G/DL (3.4-5.0); ALBUMIN/GLOBULIN RATIO 0.7 (1.1-1.5); ALKALINE PHOSPHATASE 179 IU/L (46-116); ANION GAP 9 (8-16); ASPARTATE AMINO TRANSFERASE 27 U/L (10-37); BILIRUBIN,TOTAL 0.5 MG/DL (0.1-1.0); BLOOD UREA NITROGEN 12 MG/DL (7-18); BUN/CREATININE RATIO 20.3 (6.6-38.0); CALCIUM 8.6 MG/DL (8.5-10.1); CHLORIDE 106 MMOL/L (99-107); CREATININE 0.59 MG/DL (0.40-0.90); GLUCOSE 96 MG/DL (70-104); MAGNESIUM 2.3 MG/DL (1.5-2.4); POTASSIUM 3.9 MMOL/L (3.5-5.1); SODIUM 142 MMOL/L (135-145); TOTAL CARBON DIOXIDE 26.8 MMOL/L (24-32); TOTAL PROTEIN 6.6 G/DL (6.4-8.2); eGFR > 90 ML/MIN
[2021-08-27] MEDS: NIFEdipine XL 30mg tablet PO SCH (07:54)
[2021-08-27] MEDS: metroNIDAZOLE 500mg tablet PO SCH ×3 (07:54→23:40)
[2021-08-27] MEDS: HYDROcodone/acetaminophen 10/325mg tab PO PRN ×2 (07:54→12:04)
[2021-08-27] MEDS: clopidogrel 75mg tablet PO SCH (07:55)
[2021-08-27] MEDS: levoTHYROXINE 25mcg tablet PO SCH (07:55)
[2021-08-27] MEDS: CefTRIAXone/D5W-Rocephin 1gm 50 ML IV SCH (07:55)
[2021-08-27] MEDS: lisinopril 10 MG tablet PO SCH (07:55)
[2021-08-27] MEDS: nicotine 14mg patch - 24hr TD SCH (07:55)
[2021-08-27] MEDS: busPIRone 15mg tablet PO SCH ×3 (07:55→22:35)
[2021-08-27 07:58] LABS: ANISOCYTOSIS 3+; MICROCYTOSIS 2+; PLATELET ESTIMATE INCREASED; TOTAL CELLS COUNTED 100
[2021-08-27 07:59] LABS: HYPOCHROMASIA 1+; POIKILOCYTOSIS FEW; POLYCHROMASIA 1+; TARGET CELLS FEW
[2021-08-27] MEDS: heparin, porcine 5000 units/ml vial SQ SCH ×2 (08:00→22:35)
[2021-08-27] MEDS: aspirin 81mg, enteric-coated 1 TAB TABLET.DR PO SCH (08:00)
[2021-08-27] MEDS: K and/or MAG REPLACEMENT MC SCH ×2 (08:00→20:00)
[2021-08-27] MEDS: vancomycin/NS 1 GM ADD-VANTAGE 250 ML IV SCH ×2 (08:42→22:34)
[2021-08-27] MEDS: normal saline 1000ml 1,000 ML IV SCH (10:04)
--- NOTE | 2021-08-27 15:40 | NUR ---
pt transported to OR via hospital bed. all belongings left in room 3020.
--- NOTE | 2021-08-27 15:46 | NUR ---
report called to MASSIMO Jane in recovery
--- NOTE | 2021-08-27 18:24 | NUR ---
Problems reprioritized. Patient report given, questions answered & plan of care reviewed with MASSIMO Sotomayor.
--- NOTE | 2021-08-27 19:03 | NUR ---
Patient in room PCU 3020. I have received report from Paula KEYS and had the opportunity to ask questions and assume patient care.
[2021-08-27] MEDS ORDERED: morphine 2 MG/ML inj. syringe IV PRN (19:10)
[2021-08-27] MEDS ORDERED: proCHLORperazine 10 MG/2 ml inj IV PRN (19:10)
[2021-08-27] MEDS ORDERED: meperidine/PF 25mg/ml syringe IV PRN ×3 (19:10)
[2021-08-27] MEDS ORDERED: ondansetron/PF 4mg/2ml inj IV PRN (19:10)
[2021-08-27] MEDS ORDERED: morphine 4 MG/ML inj SYRINge IV PRN (19:10)
[2021-08-27] MEDS ORDERED: ringers solution, lacted 1,000 ML IV SCH (19:10)
[2021-08-27] MEDS ORDERED: VANCOMYCIN LEVEL IV ONE (19:30)
[2021-08-27] MEDS ORDERED: sevoflurane 250ml liquid IH ONE (19:31)
[2021-08-27] MEDS ORDERED: fentaNYL/PF 50MCG/1 ML 2ML syringe ONE ×2 (19:32→19:45)
[2021-08-27] MEDS ORDERED: LIDOcaine 2% (20mg/ml) 5ml vial ONE (19:33)
[2021-08-27] MEDS ORDERED: propofol inj 20 ML IV ONE (19:33)
[2021-08-27] MEDS ORDERED: ketamine 50mg/5ml syringe ONE (19:44)
[2021-08-27] MEDS ORDERED: rocuronium 10mg/ml inj IV ONE (20:53)
[2021-08-27] MEDS ORDERED: dexamethasone sod phosphate 4mg/ml inj. ONE (20:53)
[2021-08-27] MEDS ORDERED: neostigmine methylsulfate 1 MG/ML 10ml vial ONE (20:53)
[2021-08-27] MEDS ORDERED: glycopyrrolate 0.2mg/ml inj ONE (20:53)
[2021-08-27] MEDS ORDERED: ePHEDrine 50MG/ML INJ. ONE (20:53)
[2021-08-27] MEDS ORDERED: ondansetron/PF 4mg/2ml inj ONE (20:53)
--- NOTE | 2021-08-27 20:54 | NUR ---
Received from OR via ORTHO BED , accompanied by Anesthesiologist DR MORTON and report given by Anesthesiolgist. PT SLEEPY. DRSG TO RIGHT STUMP CDI AT THIS TIME. PT APPEARS COMFORTABLE VSS. IV INFUSING LR.
--- NOTE | 2021-08-27 22:00 | NUR ---
I have received report from Lucinda KEYS and had the opportunity to ask questions and assume patient care.
--- NOTE | 2021-08-27 22:04 | NUR ---
PT REPORT GIVEN TO MYLES KEYS. PT TRANSFERRED BACK TO 3020 A. PT RATES PAIN TOLERABLE IS ALERT AND ORIENTED AND WANTING DINNER. IV INFILTRATED IN PACU. NEW 20 G PLACED TO LEFT HAND X 1 ATTEMPT. STUMP DRSG REMAINS CDI. PT RE ORIENTED BACK TO ROOM AND CALL LIGHT. TELE NUMBER [id number] BACK TO PT ROOM, TOP DENTURES IN. GLASSES IN BLACK GLASSES CASE AT BEDSIDE. WOUND VAC ALSO RETURNED TO PT ROOM BED LOW, LOCKED , RAILS UP X 2 CALL LIGHT IN REACH. PT REPOSITIONED FOR COMFORT AND DENIES ANY NEEDS. PT VERY THANKFUL FOR HER CARE HERE TODAY.
[2021-08-28] VITALS (14 sets, daily range): BP systolic 87–157; BP diastolic 42–106
[2021-08-28] MEDS: morphine 2 MG/ML inj. syringe IV PRN ×2 (02:13→22:29)
--- NOTE | 2021-08-28 06:54 | NUR ---
Problems reprioritized. Patient report given, questions answered & plan of care reviewed with Bren KEYS.
[2021-08-28] MEDS: K and/or MAG REPLACEMENT MC SCH ×2 (07:59→20:00)
[2021-08-28] MEDS: vancomycin/NS 1 GM ADD-VANTAGE 250 ML IV SCH ×4 (08:14→22:21)
[2021-08-28] MEDS: metroNIDAZOLE 500mg tablet PO SCH ×2 (08:21→14:51)
[2021-08-28] MEDS: aspirin 81mg, enteric-coated 1 TAB TABLET.DR PO SCH (08:21)
[2021-08-28] MEDS: clopidogrel 75mg tablet PO SCH (08:21)
[2021-08-28] MEDS: NIFEdipine XL 30mg tablet PO SCH (08:21)
[2021-08-28] MEDS: nicotine 14mg patch - 24hr TD SCH (08:21)
[2021-08-28] MEDS: lisinopril 10 MG tablet PO SCH (08:22)
[2021-08-28] MEDS: levoTHYROXINE 25mcg tablet PO SCH (08:22)
[2021-08-28] MEDS: busPIRone 15mg tablet PO SCH ×3 (08:22→20:47)
[2021-08-28] MEDS: heparin, porcine 5000 units/ml vial SQ SCH ×2 (08:23→20:47)
[2021-08-28] MEDS: CefTRIAXone/D5W-Rocephin 1gm 50 ML IV SCH (08:27)
[2021-08-28 08:37] LABS: BASOPHILS # (AUTO) 0.2 X10'3 (0-0.2); LYMPHOCYTES # (AUTO) 1.1 X10'3 (1.1-4.8); NEUTROPHILS % (AUTO) 90.8 % (42-75); RED CELL DISTRIBUTION WIDTH 25.5 % (11.5-14.5)
[2021-08-28 08:39] LABS: ALANINE AMINOTRANSFERASE 41 U/L (12-78); ALBUMIN 2.7 G/DL (3.4-5.0); ALBUMIN/GLOBULIN RATIO 0.7 (1.1-1.5); ALKALINE PHOSPHATASE 180 IU/L (46-116); ANION GAP 13 (8-16); ASPARTATE AMINO TRANSFERASE 27 U/L (10-37); BASOPHILS % (AUTO) 0.7 % (0-1); BILIRUBIN,TOTAL 0.4 MG/DL (0.1-1.0); BLOOD UREA NITROGEN 12 MG/DL (7-18); BUN/CREATININE RATIO 20.3 (6.6-38.0); CALCIUM 8.5 MG/DL (8.5-10.1); CHLORIDE 107 MMOL/L (99-107); CREATININE 0.59 MG/DL (0.40-0.90); EOSINOPHILS # (AUTO) 0.1 X10'3 (0-0.9); EOSINOPHILS % (AUTO) 0.5 % (0-6); GLUCOSE 92 MG/DL (70-104); HEMATOCRIT 47.6 % (35.0-45.0); HEMOGLOBIN 13.5 g/dl (12.0-16.0); LYMPHOCYTES % (AUTO) 3.5 % (21-51); MAGNESIUM 2.2 MG/DL (1.5-2.4); MEAN CORPUSCULAR HEMOGLOBIN 17.6 PG (27.0-31.0); MEAN CORPUSCULAR HGB CONC 28.3 g/dL (33.0-36.5); MEAN CORPUSCULAR VOLUME 62.2 FL (78-98); MEAN PLATELET VOLUME 9.6 FL (7.4-10.4); MONOCYTES # (AUTO) 1.4 X10'3 (0-0.9); MONOCYTES % (AUTO) 4.5 % (2-12); NEUTROPHILS # (AUTO) 28.3 X10'3 (1.8-7.7); POTASSIUM 3.7 MMOL/L (3.5-5.1); RED BLOOD COUNT 7.65 X10'6 (4.20-5.60); SODIUM 145 MMOL/L (135-145); TOTAL CARBON DIOXIDE 25.3 MMOL/L (24-32); TOTAL PROTEIN 6.6 G/DL (6.4-8.2); eGFR > 90 ML/MIN
[2021-08-28 08:43] LABS: VANCOMYCIN,TROUGH 20.6 UG/ML (6.0-14.0)
--- NOTE | 2021-08-28 08:46 | NUR ---
CRITICAL LAB VALUE TAKEN FROM LAB, REPORTED TO PRIMARY RN.
[2021-08-28 09:12] LABS: WHITE BLOOD COUNT 31.1 X10'3 (4.5-11.0)
[2021-08-28 09:13] LABS: PLATELET COUNT 1100 X10'3 (140-440)
--- NOTE | 2021-08-28 09:24 | NUR ---
Vancomycin dose was started and them held following the Vanco Trough and Pharmacist direction. Dose adjustment to follow. Total run time was 10min. At the 166ml/hr. rate.
[2021-08-28 09:27] LABS: NUCLEATED RED BLOOD CELLS 1 /100WBC (0-0); TOTAL CELLS COUNTED 100
--- NOTE | 2021-08-28 09:29 | NUR ---
PAGER ID: [phone] MESSAGE: [phone] Josephine Guillory WBC is elevated 31.1 Plt's 1100
[2021-08-28 09:31] LABS: ANISOCYTOSIS 3+; HYPOCHROMASIA 1+; MICROCYTOSIS 2+; PLATELET ESTIMATE INCREASED; POLYCHROMASIA 1+; TARGET CELLS FEW
[2021-08-28 09:32] LABS: ELLIPTOCYTES 1+; LARGE PLATELETS MODERATE; STOMATOCYTES FEW; TEAR DROP CELLS 1+
[2021-08-28] MEDS: HYDROcodone/acetaminophen 10/325mg tab PO PRN ×3 (09:47→18:55)
--- NOTE | 2021-08-28 10:36 | NUR ---
Vancomycin dose for 8AM 200mg given. Critical Vanco Trough reported to pharmacy, infusion stopped. Dose adjustment to follow.
--- NOTE | 2021-08-28 10:42 | NUR ---
Vanco Dosing: per Pharmacist Dose is calculated OK/correctly and the 1 GM dose of IV Vancomycin will be given at 11:00.
--- NOTE | 2021-08-28 18:15 | NUR ---
Patient in room PCU 3020. I have received report from MASSIMO Correia and had the opportunity to ask questions and assume patient care. She is sitting up in bed, her only complaint is pain of Rt. AKA so I will see if it is time for pain medication.
[2021-08-28] MEDS: temazepam 15mg capsule PO PRN (20:47)
[2021-08-29] MEDS: metroNIDAZOLE 500mg tablet PO SCH ×4 (00:14→23:57)
[2021-08-29] MEDS: HYDROcodone/acetaminophen 10/325mg tab PO PRN ×4 (05:08→20:48)
[2021-08-29 06:00] VITALS: BP 174/79
--- NOTE | 2021-08-29 06:36 | NUR ---
Problems reprioritized. Patient report given, questions answered & plan of care reviewed with MASSIMO Orellana.
[2021-08-29 06:39] LABS: BASOPHILS # (AUTO) 0.5 X10'3 (0-0.2); EOSINOPHILS # (AUTO) 1.4 X10'3 (0-0.9); EOSINOPHILS % (AUTO) 6.1 % (0-6); LYMPHOCYTES # (AUTO) 1.8 X10'3 (1.1-4.8); LYMPHOCYTES % (AUTO) 7.8 % (21-51); MEAN PLATELET VOLUME 9.1 FL (7.4-10.4); MONOCYTES # (AUTO) 1.6 X10'3 (0-0.9); MONOCYTES % (AUTO) 6.8 % (2-12); PLATELET COUNT 980 X10'3 (140-440); WHITE BLOOD COUNT 23.3 X10'3 (4.5-11.0)
[2021-08-29 06:52] LABS: ALANINE AMINOTRANSFERASE 31 U/L (12-78); ALBUMIN 2.5 G/DL (3.4-5.0); ALBUMIN/GLOBULIN RATIO 0.7 (1.1-1.5); ALKALINE PHOSPHATASE 125 IU/L (46-116); ANION GAP 9 (8-16); ASPARTATE AMINO TRANSFERASE 25 U/L (10-37); BILIRUBIN,TOTAL 0.4 MG/DL (0.1-1.0); BLOOD UREA NITROGEN 17 MG/DL (7-18); BUN/CREATININE RATIO 28.3 (6.6-38.0); CALCIUM 8.3 MG/DL (8.5-10.1); CHLORIDE 108 MMOL/L (99-107); GLUCOSE 94 MG/DL (70-104); MAGNESIUM 1.9 MG/DL (1.5-2.4); POTASSIUM 3.8 MMOL/L (3.5-5.1); SODIUM 144 MMOL/L (135-145); TOTAL PROTEIN 5.9 G/DL (6.4-8.2); eGFR > 90 ML/MIN
--- NOTE | 2021-08-29 07:00 | NUR ---
Patient in room PCU 3020. I have received report from JUNIOR KEYS and had the opportunity to ask questions and assume patient care.
[2021-08-29] MEDS: CefTRIAXone/D5W-Rocephin 1gm 50 ML IV SCH (07:51)
[2021-08-29] MEDS: nicotine 14mg patch - 24hr TD SCH (07:55)
[2021-08-29] MEDS: lisinopril 10 MG tablet PO SCH (07:57)
[2021-08-29] MEDS: aspirin 81mg, enteric-coated 1 TAB TABLET.DR PO SCH (07:58)
[2021-08-29] MEDS: NIFEdipine XL 30mg tablet PO SCH (07:59)
[2021-08-29] MEDS: clopidogrel 75mg tablet PO SCH (07:59)
[2021-08-29] MEDS: busPIRone 15mg tablet PO SCH ×3 (07:59→20:48)
[2021-08-29] MEDS: levoTHYROXINE 25mcg tablet PO SCH (07:59)
[2021-08-29] MEDS: K and/or MAG REPLACEMENT MC SCH ×2 (08:00→20:00)
[2021-08-29] MEDS: heparin, porcine 5000 units/ml vial SQ SCH ×2 (08:01→20:47)
[2021-08-29 08:12] LABS: HEMATOCRIT 41.2 % (35.0-45.0); HEMOGLOBIN 12.7 g/dl (12.0-16.0); MEAN CORPUSCULAR HEMOGLOBIN 18.6 PG (27.0-31.0); MEAN CORPUSCULAR HGB CONC 30.9 g/dL (33.0-36.5); MEAN CORPUSCULAR VOLUME 60.1 FL (78-98); RED BLOOD COUNT 6.86 X10'6 (4.20-5.60); RED CELL DISTRIBUTION WIDTH 23.5 % (11.5-14.5)
[2021-08-29 08:14] LABS: BASOPHILS % (AUTO) 1.4 % (0-1); NEUTROPHILS % (AUTO) 79.9 % (42-75)
--- NOTE | 2021-08-29 08:23 | NUR ---
Patient in room PCU 3020. I have received report from MOLLY TURNER and had the opportunity to ask questions and assume patient care.
--- NOTE | 2021-08-29 08:27 | NUR ---
Problems reprioritized. Patient report given, questions answered & plan of care reviewed with GABE KEYS.
[2021-08-29 11:00] VITALS: BP 109/53
[2021-08-29] MEDS: vancomycin/NS 1 GM ADD-VANTAGE 250 ML IV SCH ×2 (11:00→23:35)
[2021-08-29] MEDS: morphine 2 MG/ML inj. syringe IV PRN ×2 (13:35→23:36)
[2021-08-29 15:00] VITALS: BP 107/55
[2021-08-29 18:00] VITALS: BP 136/57
[2021-08-29] MEDS: temazepam 15mg capsule PO PRN (20:48)
[2021-08-29] MEDS ORDERED: VANCOMYCIN LEVEL IV ONE (22:30)
[2021-08-30 02:00] VITALS: BP 156/67
[2021-08-30] MEDS: hydrALAZINE 20mg/ml inj. IV PRN (04:00)
[2021-08-30] MEDS: HYDROcodone/acetaminophen 10/325mg tab PO PRN ×4 (04:24→20:34)
[2021-08-30 06:00] VITALS: BP 178/69
[2021-08-30 07:37] LABS: BASOPHILS # (AUTO) 0.4 X10'3 (0-0.2); BASOPHILS % (AUTO) 1.5 % (0-1); EOSINOPHILS # (AUTO) 1.1 X10'3 (0-0.9); EOSINOPHILS % (AUTO) 4.7 % (0-6); HEMATOCRIT 44.5 % (35.0-45.0); HEMOGLOBIN 13.1 g/dl (12.0-16.0); LYMPHOCYTES # (AUTO) 1.7 X10'3 (1.1-4.8); LYMPHOCYTES % (AUTO) 7.2 % (21-51); MEAN CORPUSCULAR HEMOGLOBIN 17.9 PG (27.0-31.0); MEAN CORPUSCULAR HGB CONC 29.4 g/dL (33.0-36.5); MEAN CORPUSCULAR VOLUME 61.1 FL (78-98); MEAN PLATELET VOLUME 9.3 FL (7.4-10.4); MONOCYTES # (AUTO) 1.5 X10'3 (0-0.9); MONOCYTES % (AUTO) 6.3 % (2-12); NEUTROPHILS # (AUTO) 18.9 X10'3 (1.8-7.7); NEUTROPHILS % (AUTO) 80.3 % (42-75); RED BLOOD COUNT 7.29 X10'6 (4.20-5.60); WHITE BLOOD COUNT 23.6 X10'3 (4.5-11.0)
[2021-08-30 07:40] LABS: PLATELET COUNT 1064 X10'3 (140-440)
--- NOTE | 2021-08-30 07:42 | NUR ---
PAGER ID: [phone] MESSAGE: RONI BROWNING RM 1635 PLATELETS CRITICAL AT 1182 THANK YOU, GABE KEYS
[2021-08-30 07:47] LABS: ALANINE AMINOTRANSFERASE 21 U/L (12-78); ALBUMIN 2.7 G/DL (3.4-5.0); ALBUMIN/GLOBULIN RATIO 0.7 (1.1-1.5); ALKALINE PHOSPHATASE 130 IU/L (46-116); ANION GAP 8 (8-16); ASPARTATE AMINO TRANSFERASE 20 U/L (10-37); BILIRUBIN,TOTAL 0.4 MG/DL (0.1-1.0); BLOOD UREA NITROGEN 18 MG/DL (7-18); BUN/CREATININE RATIO 25.4 (6.6-38.0); CALCIUM 8.5 MG/DL (8.5-10.1); CHLORIDE 107 MMOL/L (99-107); CREATININE 0.71 MG/DL (0.40-0.90); GLUCOSE 106 MG/DL (70-104); MAGNESIUM 1.9 MG/DL (1.5-2.4); POTASSIUM 3.4 MMOL/L (3.5-5.1); SODIUM 141 MMOL/L (135-145); TOTAL PROTEIN 6.6 G/DL (6.4-8.2); eGFR 81 ML/MIN
[2021-08-30] MEDS: K and/or MAG REPLACEMENT MC SCH ×2 (08:00→20:00)
[2021-08-30 08:27] LABS: ANISOCYTOSIS 3+; HYPOCHROMASIA 1+; LARGE PLATELETS FEW; MICROCYTOSIS 2+; PLATELET ESTIMATE INCREASED; POLYCHROMASIA 1+
[2021-08-30 08:28] LABS: ELLIPTOCYTES 1+; TARGET CELLS FEW
[2021-08-30] MEDS: CefTRIAXone/D5W-Rocephin 1gm 50 ML IV SCH (08:34)
[2021-08-30] MEDS: lisinopril 10 MG tablet PO SCH (08:35)
[2021-08-30] MEDS: NIFEdipine XL 30mg tablet PO SCH (08:35)
[2021-08-30] MEDS: clopidogrel 75mg tablet PO SCH (08:35)
[2021-08-30] MEDS: nicotine 14mg patch - 24hr TD SCH (08:35)
[2021-08-30] MEDS: levoTHYROXINE 25mcg tablet PO SCH (08:35)
[2021-08-30] MEDS: busPIRone 15mg tablet PO SCH ×3 (08:35→20:25)
[2021-08-30] MEDS: metroNIDAZOLE 500mg tablet PO SCH ×2 (08:36→16:42)
[2021-08-30] MEDS: aspirin 81mg, enteric-coated 1 TAB TABLET.DR PO SCH (08:36)
[2021-08-30] MEDS: heparin, porcine 5000 units/ml vial SQ SCH ×2 (08:36→20:25)
[2021-08-30 11:00] VITALS: BP 117/57
--- NOTE | 2021-08-30 11:10 | NUR ---
F/u 08/30: Pt s/p R AKA 08/27 currently NPO this AM pending angio lower extremity per EMR. Pt PO does fluctuate though ~92% avg heart healthy meals past 4 days meeting estimated needs. RD Jason smoothie BIDLD for wound healing; MD notified. LBM 08/26 received PRN MoM 08/26 per EMR. Noted pt MCV 61.1 this AM mostly ~61-62 throughout LOS; ROSIO d/w RN regarding routine bowel care and MVI w/ Fe if MD agreeable. Will monitor for further nutrition intervention needs this admit. Recommendations: 1) Continue heart healthy diet 2) Jason smoothie BIDLD for wound healing; pending MD verification in EMR 3) Consider MVI w/ Fe if MD agreeable; MCV 61-62 throughout LOS and for wound healing 4) Routine bowel care; 4 days constipation 5) Scaled weight this admit; subsequent weekly scaled weights Addendum: 08/30/21 at [address] Amended: Links added.
[2021-08-30] MEDS: vancomycin/NS 1 GM ADD-VANTAGE 250 ML IV SCH ×2 (11:57→23:20)
[2021-08-30] MEDS ORDERED: LIDOcaine 1%/PF 5ML 10 MG/ML VIAL ONE (14:28)
[2021-08-30] MEDS ORDERED: midazolam 1 mg/ML 2ml injection ONE ×2 (14:29→15:41)
[2021-08-30] MEDS ORDERED: fentaNYL/PF 50MCG/1 ML 2ML syringe ONE ×2 (14:29→15:41)
[2021-08-30] MEDS ORDERED: iohexol 300 MG/1 ML 50ml polymer ONE (14:30)
[2021-08-30] MEDS ORDERED: heparin 1,000 UNITS/NS 500ml 500 ML ONE (14:33)
[2021-08-30] MEDS ORDERED: heparin 1,000unit/ml 10ml vial 10 ML ONE (15:39)
[2021-08-30] MEDS: morphine 2 MG/ML inj. syringe IV PRN (16:42)
[2021-08-30 18:00] VITALS: BP 135/64
--- NOTE | 2021-08-30 18:28 | NUR ---
Patient in room PCU 3020. I have received report from MASSIMO Callahan and had the opportunity to ask questions and assume patient care.
[2021-08-30] MEDS: POTASSIUM BICARB 20meq eff tab 20 MEQ TABLET.EFF PO PRN (20:25)
[2021-08-30 22:00] VITALS: BP 150/67
[2021-08-31] MEDS: metroNIDAZOLE 500mg tablet PO SCH ×3 (00:21→15:01)
[2021-08-31] MEDS: POTASSIUM BICARB 20meq eff tab 20 MEQ TABLET.EFF PO PRN ×2 (00:22→05:13)
[2021-08-31] MEDS: HYDROcodone/acetaminophen 10/325mg tab PO PRN (00:31)
[2021-08-31 02:00] VITALS: BP 154/68
--- NOTE | 2021-08-31 06:16 | NUR ---
Problems reprioritized. Patient report given, questions answered & plan of care reviewed with MASSIMO Peacock.
[2021-08-31 06:58] LABS: HEMOGLOBIN 13.2 g/dl (12.0-16.0); LYMPHOCYTES # (AUTO) 1.5 X10'3 (1.1-4.8)
[2021-08-31 06:59] LABS: BASOPHILS # (AUTO) 0.6 X10'3 (0-0.2); BASOPHILS % (AUTO) 2.4 % (0-1); EOSINOPHILS # (AUTO) 1.4 X10'3 (0-0.9); EOSINOPHILS % (AUTO) 5.3 % (0-6); HEMATOCRIT 44.4 % (35.0-45.0); LYMPHOCYTES % (AUTO) 5.7 % (21-51); MEAN CORPUSCULAR HEMOGLOBIN 18.1 PG (27.0-31.0); MEAN CORPUSCULAR HGB CONC 29.7 g/dL (33.0-36.5); MEAN PLATELET VOLUME 9.3 FL (7.4-10.4); MONOCYTES # (AUTO) 1.3 X10'3 (0-0.9); NEUTROPHILS # (AUTO) 21.4 X10'3 (1.8-7.7); NEUTROPHILS % (AUTO) 81.6 % (42-75); RED BLOOD COUNT 7.28 X10'6 (4.20-5.60); RED CELL DISTRIBUTION WIDTH 25.2 % (11.5-14.5)
[2021-08-31 07:03] LABS: PLATELET COUNT 1180 X10'3 (140-440); WHITE BLOOD COUNT 26.2 X10'3 (4.5-11.0)
[2021-08-31 07:16] LABS: ALANINE AMINOTRANSFERASE 19 U/L (12-78); ALBUMIN 2.9 G/DL (3.4-5.0); ALBUMIN/GLOBULIN RATIO 0.7 (1.1-1.5); ALKALINE PHOSPHATASE 134 IU/L (46-116); ANION GAP 6 (8-16); ASPARTATE AMINO TRANSFERASE 24 U/L (10-37); BILIRUBIN,TOTAL 0.5 MG/DL (0.1-1.0); BLOOD UREA NITROGEN 16 MG/DL (7-18); BUN/CREATININE RATIO 25.8 (6.6-38.0); CALCIUM 8.7 MG/DL (8.5-10.1); CHLORIDE 106 MMOL/L (99-107); CREATININE 0.62 MG/DL (0.40-0.90); GLUCOSE 119 MG/DL (70-104); MAGNESIUM 2.1 MG/DL (1.5-2.4); POTASSIUM 4.8 MMOL/L (3.5-5.1); SODIUM 140 MMOL/L (135-145); TOTAL CARBON DIOXIDE 27.6 MMOL/L (24-32); eGFR > 90 ML/MIN
[2021-08-31 07:30] VITALS: BP 137/63
--- NOTE | 2021-08-31 07:33 | NUR ---
PAGER ID: [phone] MESSAGE: [phone] Brandon BROWNING: Critical WBC 26.2 & Plt 1180. nasrin sheikh [phone]
[2021-08-31] MEDS: K and/or MAG REPLACEMENT MC SCH (08:00)
[2021-08-31 08:15] LABS: PLATELET ESTIMATE INCREASED; TOTAL CELLS COUNTED 100
[2021-08-31 08:16] LABS: ANISOCYTOSIS 3+; LARGE PLATELETS FEW; MICROCYTOSIS 2+
[2021-08-31 08:17] LABS: ELLIPTOCYTES 1+; GIANT PLATELET MODERATE; HYPERSEGMENTED NEUTROPHILS FEW; HYPOCHROMASIA 1+; POLYCHROMASIA 1+; SCHISTOCYTES FEW; TARGET CELLS FEW
[2021-08-31] MEDS: clopidogrel 75mg tablet PO SCH (09:28)
[2021-08-31] MEDS: lisinopril 10 MG tablet PO SCH (09:29)
[2021-08-31] MEDS: NIFEdipine XL 30mg tablet PO SCH (09:29)
[2021-08-31] MEDS: aspirin 81mg, enteric-coated 1 TAB TABLET.DR PO SCH (09:29)
[2021-08-31] MEDS: busPIRone 15mg tablet PO SCH ×2 (09:29→12:08)
[2021-08-31] MEDS: levoTHYROXINE 25mcg tablet PO SCH (09:29)
[2021-08-31] MEDS: heparin, porcine 5000 units/ml vial SQ SCH (09:30)
[2021-08-31] MEDS: CefTRIAXone/D5W-Rocephin 1gm 50 ML IV SCH (09:30)
[2021-08-31] MEDS: nicotine 14mg patch - 24hr TD SCH (09:31)
[2021-08-31 11:54] VITALS: BP 169/72
[2021-08-31] MEDS: vancomycin/NS 1 GM ADD-VANTAGE 250 ML IV SCH (12:09)
[2021-08-31] MEDS: magnesium hydroxide 30ml (MOM) UD suspension PO PRN (15:01)
[2021-08-31 15:26] VITALS: BP 126/56
--- NOTE | 2021-08-31 16:13 | NUR ---
Patient stable and appropriate for transfer to [facility]. IV left intact. Report called to [facility]. All questions answered. All belongings gathered from room.
== END 2021-08-31 16:10 | DRG 463 ==
LOC: ER 12:51 → ED HOLD 16:45 → ORTHO 4S 21:05 → PCU 3S 08-24 21:25
PROVIDERS: ADMIT Internal Medicine; ATTEND Internal Medicine
PROC: 0JBN0ZZ Excision of Right Lower Leg Subcutaneous Tissue and Fascia, Open Approach (ICD-10-PCS; 2021-08-18)
PROC: B4201ZZ Computerized Tomography (CT Scan) of Abdominal Aorta using Low Osmolar Contrast (ICD-10-PCS; 2021-08-26)
PROC: B4241ZZ Computerized Tomography (CT Scan) of Superior Mesenteric Artery using Low Osmolar Contrast (ICD-10-PCS; 2021-08-26)
PROC: B4281ZZ Computerized Tomography (CT Scan) of Bilateral Renal Arteries using Low Osmolar Contrast (ICD-10-PCS; 2021-08-26)
PROC: B42C1ZZ Computerized Tomography (CT Scan) of Pelvic Arteries using Low Osmolar Contrast (ICD-10-PCS; 2021-08-26)
PROC: B42H1ZZ Computerized Tomography (CT Scan) of Bilateral Lower Extremity Arteries using Low Osmolar Contrast (ICD-10-PCS; 2021-08-26)
PROC: B4211ZZ Computerized Tomography (CT Scan) of Celiac Artery using Low Osmolar Contrast (ICD-10-PCS; 2021-08-26)
PROC: 0Y6C0Z1 Detachment at Right Upper Leg, High, Open Approach (ICD-10-PCS; principal; 2021-08-27 19:31)
PROC: 047C3Z1 Dilation of Right Common Iliac Artery using Drug-Coated Balloon, Percutaneous Approach (ICD-10-PCS; 2021-08-30)
PROC: 047H3Z1 Dilation of Right External Iliac Artery using Drug-Coated Balloon, Percutaneous Approach (ICD-10-PCS; 2021-08-30)
PROC: B41F1ZZ Fluoroscopy of Right Lower Extremity Arteries using Low Osmolar Contrast (ICD-10-PCS; 2021-08-30)
DX: T87.43 Infection of amputation stump, right lower extremity (principal); A41.9 Sepsis, unspecified organism; I70.261 Atherosclerosis of native arteries of extremities with gangrene, right leg; N39.0 Urinary tract infection, site not specified; F17.210 Nicotine dependence, cigarettes, uncomplicated; B96.20 Unspecified Escherichia coli [E. coli] as the cause of diseases classified elsewhere; I10 Essential (primary) hypertension; R09.02 Hypoxemia; T87.81 Dehiscence of amputation stump; Y83.5 Amputation of limb(s) as the cause of abnormal reaction of the patient, or of later complication, without mention of misadventure at the time of the procedure; R16.1 Splenomegaly, not elsewhere classified; D75.839 Thrombocytosis, unspecified; E03.9 Hypothyroidism, unspecified; E87.6 Hypokalemia; F41.1 Generalized anxiety disorder; J44.9 Chronic obstructive pulmonary disease, unspecified; Z20.822 Contact with and (suspected) exposure to COVID-19; Z78.9 Other specified health status; Z88.8 Allergy status to other drugs, medicaments and biological substances; Z82.49 Family history of ischemic heart disease and other diseases of the circulatory system; I69.328 Other speech and language deficits following cerebral infarction; Z72.89 Other problems related to lifestyle; Z71.6 Tobacco abuse counseling; Z89.412 Acquired absence of left great toe; Z71.41 Alcohol abuse counseling and surveillance of alcoholic; Z79.02 Long term (current) use of antithrombotics/antiplatelets
CPT/HCPCS: 36415; 37220; 70450; 71045; 75635; 76705; 80053; 80202; 80305; 80320; 81001; 82948; 83036; 83605; 83735; 84132; 84145; 84443; 85007; 85008; 85025; 85610; 85651; 85730; 86140; 86885; 86900; 86901; 86920; 87040; 87077; 87081; 87088; 87186; 88305; 93005; 93926; 97110; 97116; 97161; 97530; 97535; 99152; 99153; 99285; A4615; A4618; A4620; A6212; A6213; A6222; A6250; A6253; A6258; A6446; A6449; A6550; A7000; C1725; C1758; C1760; C1769; C1894; G0378; J0360; J0696; J1100; J1644; J2175; J2250; J2270; J2405; J2543; J2704; J2710; J3010; J3370; J3490; J7030; J7120; J7121; Q9967

== ENCOUNTER 2021-10-29 08:46 | Emergency (ER) | payer MEDICARE, MEDICAID ==
[~2021-10-29] VITALS: Ht 167.6 cm; Wt 55.5 kg
[~2021-10-29 08:46] MED LIST changes: -AMLO10TA13 PO; -ASPI-1264 PO; +ASPI-1265 PO; -ATOR40TA72 PO; -BUSP10TA3 PO; +BUSP15TA12 PO; -LISI10TA27 PO; +LISI2.5T14 PO
[2021-10-29] MEDS ORDERED: LIDOcaine 1% 30ml preserv. free vial IJ ONE (09:25)
[2021-10-29] MEDS ORDERED: TETanus/Pertussis (Acell)/Diphther VAC/PF (Tdap-Adult) 0.5ml syringe IMVAC ONE (09:25)
[2021-10-29] MEDS ORDERED: LIDOcaine 1%/PF 5ML 10 MG/ML VIAL IJ ONE (09:45)
[2021-10-29] MEDS ORDERED: HYDROcodone/acetaminophen 10/325mg tab PO ONE (11:40)
--- NOTE | 2021-10-29 12:43 | NUR ---
CALLED [facility] AT 12:43, ETA 35 MINS FOR GROUP PRACTICE PEDIATRICIAN
--- NOTE | 2021-10-29 13:15 | NUR ---
PT RETURNED TO THE ER BED 9 D/T [facility] NOT ABLE TO TAKE HER HOME THERE IS NOT ANYONE TO GET HER OUT OF THE VAN AND PT IS NOT DENNIS TO GET INTO [facility]. WILL ATTEMPT [facility] NO EMERG TSF HOME.
[2021-10-29 14:15] VITALS: BP 104/61
--- NOTE | 2021-10-29 14:35 | NUR ---
PT SITTING UP IN WC C/O OF FEELING DIAPHORETIC BS 108, HR 82, RR 16, O2 97%, B/P 108/58. PT STATES SHE FEELS BETTER LAYING DOWN AND SUKUMAR IN THE AC OF THE ER. [facility] ON THERE WAY TO SAW MAKER PT. PT STATES SHE FEELS READY TO GO HOME
--- NOTE | 2021-10-29 14:45 | NUR ---
AFTER TALKING MORE WITH PT IT WAS DETERMINED THE DIAPHORETIC AND DIZZINESS WAS MOST LIKLEY CAUSED FROM THE NORCO SHE HAD PRIOR TO DC. PT STATES SHE DOES NOT USUSLLY TAKE PAIN MEDS AND STATES SHE THINKS THIS HAS HAPPENED BEFORE. PT STATES RELIEF LAYNG IN BED AND SHE WILL BE ABLE TO GO HOME AND GO TO BED FOR A NAP.
--- NOTE | 2021-10-29 14:58 | NUR ---
PT PICKED UP BY [facility]. ABLE TO TRNASFER TO THE [facility] WITH ASSIST. DC TO HOME WITH NO C/O
== END 2021-10-29 13:10 | disposition home or self-care (01) ==
LOC: ER 08:47
DX: S01.81XA Laceration without foreign body of other part of head, initial encounter (principal); S90.411A Abrasion, right great toe, initial encounter; S00.81XA Abrasion of other part of head, initial encounter; S00.211A Abrasion of right eyelid and periocular area, initial encounter; S60.811A Abrasion of right wrist, initial encounter; F17.200 Nicotine dependence, unspecified, uncomplicated; I11.9 Hypertensive heart disease without heart failure; Z88.8 Allergy status to other drugs, medicaments and biological substances; Z79.82 Long term (current) use of aspirin; Z79.899 Other long term (current) drug therapy; V98.8XXA Other specified transport accidents, initial encounter; Y93.89 Activity, other specified; Y92.89 Other specified places as the place of occurrence of the external cause; Y99.8 Other external cause status
CPT/HCPCS: 12011; 70450; 72125; 73630; 82948; 90471; 90715; 99284; J7030; A6258

== ENCOUNTER 2021-12-12 16:28 | Inpatient (IN) | payer MEDICARE, MEDICAID ==
[~2021-12-12] VITALS: Ht 167.6 cm; Wt 48.0 kg
[2021-12-12] MEDS ORDERED: normal saline 1000ML IV soln IVB ONE ×2 (18:10→19:50)
[2021-12-12 19:02] LABS: ALANINE AMINOTRANSFERASE 11 U/L (12-78); ALBUMIN 2.9 G/DL (3.4-5.0); ALBUMIN/GLOBULIN RATIO 0.8 (1.1-1.5); ALKALINE PHOSPHATASE 136 IU/L (46-116); ASPARTATE AMINO TRANSFERASE 32 U/L (10-37); BILIRUBIN,TOTAL 0.2 MG/DL (0.1-1.0); BLOOD UREA NITROGEN 114 MG/DL (7-18); BUN/CREATININE RATIO 61.6 (6.6-38.0); CALCIUM 8.6 MG/DL (8.5-10.1); CHLORIDE 107 MMOL/L (99-107); CREATININE 1.85 MG/DL (0.40-0.90); GLUCOSE 123 MG/DL (70-104); MAGNESIUM 2.5 MG/DL (1.5-2.4); SODIUM 136 MMOL/L (135-145); TOTAL PROTEIN 6.4 G/DL (6.4-8.2); eGFR 27 ML/MIN
[2021-12-12 19:09] LABS: ANION GAP 18 (8-16); TOTAL CARBON DIOXIDE 10.8 MMOL/L (24-32)
[2021-12-12 20:25] LABS: LYMPHOCYTES # (AUTO) 0.9 X10'3 (1.1-4.8)
[2021-12-12 20:26] LABS: BASOPHILS # (AUTO) 0.1 X10'3 (0-0.2); BASOPHILS % (AUTO) 0.3 % (0-1); EOSINOPHILS # (AUTO) 0.8 X10'3 (0-0.9); EOSINOPHILS % (AUTO) 2.1 % (0-6); LYMPHOCYTES % (AUTO) 2.3 % (21-51); MEAN PLATELET VOLUME 10.2 FL (7.4-10.4); MONOCYTES # (AUTO) 1.2 X10'3 (0-0.9); MONOCYTES % (AUTO) 3.2 % (2-12); NEUTROPHILS # (AUTO) 34.7 X10'3 (1.8-7.7); NEUTROPHILS % (AUTO) 92.1 % (42-75); PLATELET COUNT 848 X10'3 (140-440)
[2021-12-12 20:40] LABS: CLARITY,URINE CLOUDY (Clear); COLOR,URINE YELLOW (Yellow); GLUCOSE, URINE NEGATIVE (Neg); KETONES,URINE NEGATIVE (Neg); LEUKOCYTE ESTERASE ,URINE MODERATE (Neg); NITRITES, URINE POSITIVE (Neg); OCCULT BLOOD,URINE LARGE (Neg); PH,URINE 5.5 (4.8-8.0); PROTEIN,URINE 30 mg/dl (Neg); UROBILINOGEN,URINE 0.2 E.U/dL (0.2-1.0)
[2021-12-12 20:48] LABS: UA COLLECTION TYPE NON-SPECIFIED
[2021-12-12 20:50] LABS: SQUAMOUS EPITHELIAL CELL,UR FEW /LPF (FEW); TRANSITIONAL EPI CELLS,URINE FEW /HPF; WBC,URINE TNTC /HPF (0-4)
[2021-12-12 20:51] LABS: BACTERIA,URINE 2+ /HPF (Neg)
[2021-12-12 20:52] LABS: WBC CLUMPS,URINE MANY /HPF (NEGATIVE)
[2021-12-12 21:01] LABS: URINE AMPHETAMINE SCREEN NEGATIVE (Neg); URINE BARBITUATE SCREEN NEGATIVE (Neg); URINE BENZODIAZEPINES SCREEN NEGATIVE (Neg); URINE CANNABINOID SCREEN NEGATIVE (Neg); URINE COCAINE SCREEN NEGATIVE (Neg); URINE METHADONE SCREEN NEGATIVE (Neg); URINE OPIATE SCREEN NEGATIVE (Neg); URINE PHENCYCLIDINE SCREEN NEGATIVE (Neg)
[2021-12-12 21:02] LABS: ETHANOL < 0.010 GM/DL (0.0-0.010)
[2021-12-12 21:10] LABS: HEMATOCRIT 44.6 % (35.0-45.0); HEMOGLOBIN 14.7 g/dl (12.0-16.0); MEAN CORPUSCULAR HEMOGLOBIN 20.6 PG (27.0-31.0); MEAN CORPUSCULAR VOLUME 62.5 FL (78-98); RED BLOOD COUNT 7.14 X10'6 (4.20-5.60); RED CELL DISTRIBUTION WIDTH 22.3 % (11.5-14.5)
[2021-12-12 21:15] LABS: WHITE BLOOD COUNT 37.8 X10'3 (4.5-11.0)
[2021-12-12] MEDS ORDERED: CefTRIAXone/D5W-Rocephin 1gm 50 ML IV ONE (21:15)
[2021-12-12] MEDS ORDERED: ondansetron/PF 4mg/2ml inj IV PRN (21:50)
[2021-12-12] MEDS ORDERED: acetaminophen 325mg tablet PO PRN (21:50)
[2021-12-12] MEDS ORDERED: magnesium hydroxide 30ml (MOM) UD suspension PO PRN (21:50)
[2021-12-12] MEDS ORDERED: morphine 2 MG/ML inj. syringe IV PRN (21:50)
[2021-12-12] MEDS ORDERED: mag hydrox/Alum hydrox/simeth 30ml oral suspension PO PRN (21:50)
[2021-12-12 21:56] LABS: ANISOCYTOSIS 3+; MICROCYTOSIS 2+; PLATELET ESTIMATE INCREASED; TOTAL CELLS COUNTED 100
[2021-12-12 21:57] LABS: GIANT PLATELET FEW; HYPERSEGMENTED NEUTROPHILS FEW; LARGE PLATELETS MODERATE; TOXIC GRANULATION 1+
[2021-12-12 21:58] LABS: BURR CELLS FEW; ELLIPTOCYTES 1+; POLYCHROMASIA FEW; SMUDGE CELLS FEW
[2021-12-12] MEDS ORDERED: ASPI-416 PO (22:45)
[2021-12-12] MEDS ORDERED: LISI20TA28 PO (22:45)
[2021-12-12] MEDS ORDERED: TRAZ-251 PO (22:54)
[2021-12-13] MEDS: normal saline 1000ml 1,000 ML IV SCH ×3 (00:44→19:43)
[2021-12-13 04:57] LABS: ABG BASE EXCESS -13.4 mmol/L (-2.0-2.0); ABG HCO3 12.2 mmol/L (22.0-26.0); ABG OXYGEN SATURATION 96.6 % (94-97); ABG PCO2 (T) 28.4 mmHg (32.0-45.0); ABG PO2 (T) 92.9 mmHg (75.0-100.0); ALLEN'S TEST POSITIVE; FCOHb 2.5 % (0.0-3.9); FMetHb 0.1 % (0.0-1.5); FO2Hb 94.1 % (94-97); TOTAL HEMOGLOBIN 15.4 G/dl (12.0-16.0)
[2021-12-13 05:06] LABS: BASOPHILS # (AUTO) 0.1 X10'3 (0-0.2); EOSINOPHILS # (AUTO) 0.9 X10'3 (0-0.9)
[2021-12-13 05:07] LABS: BASOPHILS % (AUTO) 0.4 % (0-1); EOSINOPHILS % (AUTO) 2.7 % (0-6); LYMPHOCYTES # (AUTO) 0.8 X10'3 (1.1-4.8); LYMPHOCYTES % (AUTO) 2.2 % (21-51); MEAN PLATELET VOLUME 9.9 FL (7.4-10.4); MONOCYTES # (AUTO) 1.6 X10'3 (0-0.9); MONOCYTES % (AUTO) 4.6 % (2-12); NEUTROPHILS # (AUTO) 31.2 X10'3 (1.8-7.7); NEUTROPHILS % (AUTO) 90.1 % (42-75); RED CELL DISTRIBUTION WIDTH 24.4 % (11.5-14.5)
[2021-12-13 05:19] LABS: ALBUMIN 2.8 G/DL (3.4-5.0); ANION GAP 15 (8-16); BLOOD UREA NITROGEN 87 MG/DL (7-18); BUN/CREATININE RATIO 88.8 (6.6-38.0); CALCIUM 8.5 MG/DL (8.5-10.1); CHLORIDE 116 MMOL/L (99-107); CREATININE 0.98 MG/DL (0.40-0.90); GLUCOSE 95 MG/DL (70-104); SODIUM 144 MMOL/L (135-145); eGFR 56 ML/MIN
[2021-12-13 05:25] LABS: TOTAL CARBON DIOXIDE 12.9 MMOL/L (24-32)
[2021-12-13] MEDS: sodium bicarbonate (8.4%) inj. 100 MEQ in dextrose 5%-water 1,000 ML IV SCH ×3 (05:44→19:46)
[2021-12-13 06:18] LABS: HEMATOCRIT 46.9 % (35.0-45.0); HEMOGLOBIN 14.4 g/dl (12.0-16.0); MEAN CORPUSCULAR VOLUME 64.5 FL (78-98); RED BLOOD COUNT 7.27 X10'6 (4.20-5.60); WHITE BLOOD COUNT 33.1 X10'3 (4.5-11.0)
[2021-12-13 06:19] LABS: MEAN CORPUSCULAR HEMOGLOBIN 19.9 PG (27.0-31.0); MEAN CORPUSCULAR HGB CONC 30.8 g/dL (33.0-36.5); PLATELET COUNT 752 X10'3 (140-440)
--- NOTE | 2021-12-13 06:36 | NUR ---
PT PLACED ON PURE WICK THIS AM D/T URINARY INCONTINENCE.
[2021-12-13 06:41] LABS: ANISOCYTOSIS 3+; ELLIPTOCYTES 1+; LARGE PLATELETS FEW; MICROCYTOSIS 2+; NUCLEATED RED BLOOD CELLS 1 /100WBC (0-0); PLATELET ESTIMATE INCREASED; POLYCHROMASIA FEW; TOTAL CELLS COUNTED 100
[2021-12-13 06:42] LABS: GIANT PLATELET FEW
[2021-12-13] MEDS: docusate sod 100mg capsule PO SCH ×2 (07:42→20:20)
[2021-12-13] MEDS ORDERED: CefTRIAXone/D5W-Rocephin 1gm 50 ML IV SCH (08:00)
[2021-12-13] MEDS: busPIRone 15mg tablet PO SCH ×3 (08:03→20:20)
[2021-12-13] MEDS: clopidogrel 75mg tablet PO SCH (08:03)
[2021-12-13] MEDS: levoTHYROXINE 25mcg tablet PO SCH (08:03)
[2021-12-13] MEDS: heparin, porcine 5000 units/ml vial SQ SCH ×2 (08:06→20:21)
[2021-12-13] MEDS ORDERED: VANCOmycin 1250MG/NS 250ml Bag 250 ML IV ONE (12:30)
[2021-12-13] MEDS: HYDROcodone/acetaminophen 5mg/325mg tablet PO PRN (14:19)
[2021-12-13 15:21] VITALS: BP 96/41
[2021-12-13 18:00] VITALS: BP 124/55
[2021-12-13] MEDS: traZODone 50mg tablet PO SCH (20:19)
[2021-12-13 22:00] VITALS: BP 111/42
[2021-12-14] MEDS: HYDROcodone/acetaminophen 5mg/325mg tablet PO PRN ×2 (01:45→08:58)
[2021-12-14 02:00] VITALS: BP 145/60
[2021-12-14] MEDS: normal saline 1000ml 1,000 ML IV SCH ×2 (03:50→05:36)
--- NOTE | 2021-12-14 06:58 | NUR ---
Problems reprioritized. Patient report given, questions answered & plan of care reviewed with SONYA KEYS
[2021-12-14 07:21] VITALS: BP 130/59
[2021-12-14] MEDS: sodium bicarbonate (8.4%) inj. 100 MEQ in dextrose 5%-water 1,000 ML IV SCH (07:31)
[2021-12-14 07:39] LABS: BASOPHILS # (AUTO) 0.2 X10'3 (0-0.2); BASOPHILS % (AUTO) 0.5 % (0-1); EOSINOPHILS # (AUTO) 1.5 X10'3 (0-0.9); EOSINOPHILS % (AUTO) 5.4 % (0-6); LYMPHOCYTES # (AUTO) 1.3 X10'3 (1.1-4.8); LYMPHOCYTES % (AUTO) 4.8 % (21-51); MEAN PLATELET VOLUME 9.5 FL (7.4-10.4); MONOCYTES # (AUTO) 1.1 X10'3 (0-0.9); NEUTROPHILS # (AUTO) 23.6 X10'3 (1.8-7.7); NEUTROPHILS % (AUTO) 85.3 % (42-75); PLATELET COUNT 631 X10'3 (140-440)
--- NOTE | 2021-12-14 07:47 | NUR ---
pt left foot negative for pulses via palpation and doppler. Foot cool but not cold, reddened color.
[2021-12-14 07:59] LABS: ALBUMIN 2.4 G/DL (3.4-5.0); ANION GAP 9 (8-16); BLOOD UREA NITROGEN 36 MG/DL (7-18); CHLORIDE 114 MMOL/L (99-107); GLUCOSE 107 MG/DL (70-104); SODIUM 144 MMOL/L (135-145); TOTAL CARBON DIOXIDE 20.8 MMOL/L (24-32); eGFR > 90 ML/MIN
[2021-12-14 08:03] LABS: POTASSIUM 2.7 MMOL/L (3.5-5.1)
--- NOTE | 2021-12-14 08:03 | NUR ---
REPORTED CRITICAL LAB VALUE TO PRIMARY RN
[2021-12-14 08:21] LABS: RED BLOOD COUNT 6.94 X10'6 (4.20-5.60)
[2021-12-14 08:22] LABS: HEMATOCRIT 44.2 % (35.0-45.0); MEAN CORPUSCULAR HEMOGLOBIN 20.2 PG (27.0-31.0); MEAN CORPUSCULAR HGB CONC 31.7 g/dL (33.0-36.5); MEAN CORPUSCULAR VOLUME 63.8 FL (78-98); RED CELL DISTRIBUTION WIDTH 22.8 % (11.5-14.5)
[2021-12-14 08:24] LABS: WHITE BLOOD COUNT 27.7 X10'3 (4.5-11.0)
[2021-12-14] MEDS ORDERED: levoFLOXACIN-Levaquin 500mg/D5 100 ML IV ONE (08:45)
[2021-12-14] MEDS ORDERED: magnesium 4gm in 100ml NS 100 ML IV PRN (08:45)
[2021-12-14] MEDS ORDERED: potassium Cl 40MEQ/1/2NS 520ml 520 ML IV PRN (08:45)
[2021-12-14] MEDS ORDERED: magnesium Cl slow-release 64mg tablet PO PRN (08:45)
[2021-12-14 08:47] LABS: LARGE PLATELETS FEW; PLATELET ESTIMATE INCREASED; TOTAL CELLS COUNTED 100
[2021-12-14 08:49] LABS: ANISOCYTOSIS 3+; ELLIPTOCYTES 1+; GIANT PLATELET FEW; MICROCYTOSIS 2+; POLYCHROMASIA FEW; TARGET CELLS FEW
[2021-12-14] MEDS: levoTHYROXINE 25mcg tablet PO SCH (08:56)
[2021-12-14] MEDS: busPIRone 15mg tablet PO SCH ×3 (08:56→22:14)
[2021-12-14] MEDS: docusate sod 100mg capsule PO SCH ×2 (08:57→19:48)
[2021-12-14] MEDS: clopidogrel 75mg tablet PO SCH (08:57)
[2021-12-14] MEDS: potassium Cl 20 mEq SR tablet PO PRN (08:58)
[2021-12-14] MEDS: heparin, porcine 5000 units/ml vial SQ SCH ×2 (09:03→19:48)
[2021-12-14 09:12] VITALS: BP_SYST 116; BP_SYST 134; BP_DIAS 47; BP_DIAS 49
--- NOTE | 2021-12-14 09:17 | NUR ---
Noted pt w/ low BMI. 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 Pt appears WD/WN per ED note. Pt denies recent wt loss or decrease in appetite. No edema noted. Will continue to monitor. Addendum: 12/14/21 at [address] Amended: Links added.
[2021-12-14 09:42] LABS: MAGNESIUM 1.8 MG/DL (1.5-2.4)
[2021-12-14] MEDS: morphine 2 MG/ML inj. syringe IV PRN (11:01)
[2021-12-14] MEDS ORDERED: LORazepam 2 mg/ml vial IV ONE ×2 (11:55→18:11)
[2021-12-14] MEDS: acetaminophen 325mg tablet PO PRN (11:59)
[2021-12-14 12:29] VITALS: BP 139/56
[2021-12-14] MEDS ORDERED: VANCOMYCIN 750MG IV in NS 250 ML IV SCH (14:00)
--- NOTE | 2021-12-14 14:52 | NUR ---
PRESSURE ULCER EDUCATION: DEFINITION: A pressure ulcer is an area of skin that breaks down when you stay in one position too long. The constant pressure against the skin reduces the blood flow to that area and the affected tissue dies. CAUSES: "Being bedridden or in a wheelchair "Fragile skin "Having a chronic condition, such as diabetes or vascular disease "Inability to move certain parts of your body without assistance "Older age "Incontinence of urine or stool SYMPTOMS: "A reddened area that DOES NOT turn white when pressed on - this can be the beginning of a pressure ulcer "A blister, deep sore or a crater - these can be advanced pressure ulcers FIRST AID: "Relieve the pressure on this area "Keep the area clean and dry "Call your primary doctor if you see any of the above symptoms "DO NOT massage the area "DO NOT use a donut shaped or ring shaped pillow- these actually interfere with the blood flow and cause complications PREVENTION: "Check for pressure ulcers everyday "Change position at least every two hours to relieve pressure "Use items that help relieve pressure- pillows, sheepskin, foam padding, and powders. "Keep skin clean and dry "Eat healthy well balanced meals "Exercise daily IF YOU SEE ANY OF THESE SYMPTOMS WHILE IN THE HOSPITAL - TELL YOUR NURSE IMMEDIATELY. IF YOU SEE ANY OF THESE SYMPTOMS WHILE AT HOME OR HAVE ANY QUESTIONS OR CONCERNS ABOUT PRESSURE ULCERS - CALL YOUR PRIMARY DOCTOR IMMEDIATELY. Addendum: 12/14/21 at 1454 by Waleska Johnson LVN Amended: Links added.
[2021-12-14 18:00] VITALS: BP 154/68
[2021-12-14] MEDS ORDERED: LORazepam 2 mg/ml vial IV PRN (18:40)
[2021-12-14] MEDS: K and/or MAG REPLACEMENT MC SCH (20:00)
[2021-12-14 22:00] VITALS: BP 189/83
[2021-12-14] MEDS: traZODone 50mg tablet PO SCH (22:14)
--- NOTE | 2021-12-14 22:34 | NUR ---
notified of pts B/P of . new order to give 2.5 norvasc po prn once
[2021-12-14] MEDS ORDERED: amLODIPine 2.5mg tablet PO PRN (22:35)
[2021-12-15] MEDS: potassium Cl 20 mEq SR tablet PO PRN ×4 (00:48→16:42)
[2021-12-15] MEDS: sodium bicarbonate (8.4%) inj. 100 MEQ in dextrose 5%-water 1,000 ML IV SCH (00:48)
[2021-12-15] MEDS: HYDROcodone/acetaminophen 5mg/325mg tablet PO PRN ×3 (00:53→09:56)
--- NOTE | 2021-12-15 01:30 | NUR ---
Assumed care of pt.Resting in bed call light within reach.
--- NOTE | 2021-12-15 01:30 | NUR ---
RN saw bug on pt's linen.charge nurse notified.contact and other necessary precautions has been initiated.Will continue to monitor .
--- NOTE | 2021-12-15 01:35 | NUR ---
CDI dressing noted to R aka and L foot.
[2021-12-15 02:26] VITALS: BP 132/52
--- NOTE | 2021-12-15 04:45 | NUR ---
NOTED RED BUT BLANCHABLE BUTTOCK WHEN CHANGING PT.
[2021-12-15 06:12] LABS: BASOPHILS # (AUTO) 0.3 X10'3 (0-0.2); BASOPHILS % (AUTO) 0.9 % (0-1); EOSINOPHILS % (AUTO) 3.7 % (0-6); LYMPHOCYTES # (AUTO) 1.7 X10'3 (1.1-4.8); LYMPHOCYTES % (AUTO) 6.3 % (21-51); MEAN PLATELET VOLUME 9.1 FL (7.4-10.4); MONOCYTES # (AUTO) 1.3 X10'3 (0-0.9); MONOCYTES % (AUTO) 4.8 % (2-12); NEUTROPHILS # (AUTO) 22.9 X10'3 (1.8-7.7); NEUTROPHILS % (AUTO) 84.3 % (42-75); PLATELET COUNT 651 X10'3 (140-440); RED CELL DISTRIBUTION WIDTH 23.4 % (11.5-14.5)
--- NOTE | 2021-12-15 06:30 | NUR ---
Patient in room PCU 3024. I have received report from Gill KEYS and had the opportunity to ask questions and assume patient care.
[2021-12-15 06:50] LABS: ALBUMIN 2.3 G/DL (3.4-5.0); ANION GAP 9 (8-16); BLOOD UREA NITROGEN 13 MG/DL (7-18); BUN/CREATININE RATIO 29.5 (6.6-38.0); CALCIUM 8.2 MG/DL (8.5-10.1); CHLORIDE 110 MMOL/L (99-107); CHOLESTEROL 101 MG/DL (0-200); CREATININE 0.44 MG/DL (0.40-0.90); GLUCOSE 105 MG/DL (70-104); HDL CHOLESTEROL 25 MG/DL (35-60); LDL CHOLESTEROL 52 MG/DL (50-100); MAGNESIUM 1.7 MG/DL (1.5-2.4); POTASSIUM 3.3 MMOL/L (3.5-5.1); SODIUM 145 MMOL/L (135-145); TOTAL CARBON DIOXIDE 26.3 MMOL/L (24-32); TRIGLYCERIDES 184 MG/DL (20-135); eGFR > 90 ML/MIN
[2021-12-15 06:59] VITALS: BP 132/65
[2021-12-15 07:09] LABS: WHITE BLOOD COUNT 27.1 X10'3 (4.5-11.0)
[2021-12-15 07:10] LABS: HEMOGLOBIN 13.3 g/dl (12.0-16.0); MEAN CORPUSCULAR HEMOGLOBIN 20.2 PG (27.0-31.0); MEAN CORPUSCULAR HGB CONC 31.7 g/dL (33.0-36.5); MEAN CORPUSCULAR VOLUME 63.9 FL (78-98); RED BLOOD COUNT 6.58 X10'6 (4.20-5.60)
[2021-12-15] MEDS: levoTHYROXINE 25mcg tablet PO SCH (07:54)
[2021-12-15] MEDS: busPIRone 15mg tablet PO SCH ×3 (07:55→20:49)
[2021-12-15] MEDS: docusate sod 100mg capsule PO SCH ×2 (07:55→20:49)
[2021-12-15] MEDS: clopidogrel 75mg tablet PO SCH (07:55)
[2021-12-15] MEDS: heparin, porcine 5000 units/ml vial SQ SCH ×2 (07:56→20:48)
[2021-12-15] MEDS: K and/or MAG REPLACEMENT MC SCH ×2 (08:00→20:00)
[2021-12-15] MEDS: levoFLOXACIN-Levaquin 500mg/D5 100 ML IV SCH (08:05)
[2021-12-15] MEDS: morphine 2 MG/ML inj. syringe IV PRN (08:06)
[2021-12-15] MEDS: normal saline 1000ml 1,000 ML IV SCH (08:08)
[2021-12-15 08:20] LABS: ANISOCYTOSIS 3+; PLATELET ESTIMATE INCREASED; TOTAL CELLS COUNTED 100
[2021-12-15 08:22] LABS: ELLIPTOCYTES 1+; MICROCYTOSIS 2+; TEAR DROP CELLS FEW
[2021-12-15 08:23] LABS: LARGE PLATELETS MODERATE; TARGET CELLS FEW
[2021-12-15 08:29] VITALS: BP_SYST 128; BP_SYST 146; BP_DIAS 60
[2021-12-15 10:20] VITALS: BP 146/65
--- NOTE | 2021-12-15 13:11 | NUR ---
Initial: Pt admit DX sepsis, UTI, BLE cellulitis, DAKSHA, hypothyroidism, hypokalemia, and possible osteo-R knee per EMR. Pt hx R AKA in August reports wound has yet to heal post-op w/ notable full thickness AKA wound per WOC note. Pt PO ~88% avg heart healthy meals meeting estimated needs. Given wound healing and heavy etoh hx RD paged MD regarding MVI supplementation if agreeable. Pt would benefit from Jason smoothie BIDBD for wound healing as well; notified. LBM 12/15 receiving routine colace per EMR. Will continue to monitor for further nutrition intervention needs. Rec: 1. continue heart healthy diet 2. Jason smoothie BIDBD; pending physician verification in EMR 3. MVI supplementation for wound healing/etoh hx 4. routine bowel care 5. weekly wts Addendum: 12/15/21 at [address] Amended: Links added.
[2021-12-15 14:41] VITALS: BP 162/75
[2021-12-15] MEDS: HYDROcodone/acetaminophen 10/325mg tab PO PRN ×2 (15:33→20:49)
[2021-12-15] MEDS ORDERED: VANCOmycin 1250MG/NS 250ml Bag 250 ML IV ONE (16:40)
[2021-12-15 18:00] VITALS: BP 172/67
--- NOTE | 2021-12-15 18:10 | NUR ---
Patient in room PCU 3024. I have received report from Michelle KEYS and had the opportunity to ask questions and assume patient care.
--- NOTE | 2021-12-15 18:20 | NUR ---
Problems reprioritized. Patient report given to Hiwot MONTANO, questions answered & plan of care reviewed with .
[2021-12-15] MEDS: traZODone 50mg tablet PO SCH (20:49)
[2021-12-16] MEDS: normal saline 1000ml 1,000 ML IV SCH ×2 (04:00→06:12)
--- NOTE | 2021-12-16 04:23 | NUR ---
On my assessment I used the Doppler to assess the left post tib and it was present; was unable to palpate the DP on the left and it was wrapped with a dressing so was not able to Doppler it through the dressing. Palpated the popliteal on the right. Pupils 2-3mm and sluggish. She is on isolation for possible bed bugs.
[2021-12-16] MEDS: HYDROcodone/acetaminophen 10/325mg tab PO PRN ×4 (06:12→21:57)
--- NOTE | 2021-12-16 06:27 | NUR ---
Problems reprioritized. Patient report given, questions answered & plan of care reviewed with Michelle KEYS.
[2021-12-16] MEDS: JUVEN Smoothie Arginine/Glut./Ca2+Bmb (Juven 19.3pkt) 240ml cup PO SCH (07:30)
[2021-12-16 07:37] VITALS: BP 152/73
[2021-12-16 07:41] VITALS: BP 152/73
[2021-12-16] MEDS: K and/or MAG REPLACEMENT MC SCH ×2 (08:00→20:00)
[2021-12-16 08:14] LABS: BASOPHILS # (AUTO) 0.2 X10'3 (0-0.2)
[2021-12-16 08:17] LABS: BASOPHILS % (AUTO) 0.9 % (0-1); EOSINOPHILS % (AUTO) 3.8 % (0-6); HEMATOCRIT 44.9 % (35.0-45.0); HEMOGLOBIN 13.5 g/dl (12.0-16.0); LYMPHOCYTES # (AUTO) 1.5 X10'3 (1.1-4.8); LYMPHOCYTES % (AUTO) 5.8 % (21-51); MEAN CORPUSCULAR HEMOGLOBIN 19.6 PG (27.0-31.0); MEAN CORPUSCULAR VOLUME 65.3 FL (78-98); MEAN PLATELET VOLUME 10.1 FL (7.4-10.4); MONOCYTES # (AUTO) 1.2 X10'3 (0-0.9); MONOCYTES % (AUTO) 4.6 % (2-12); NEUTROPHILS # (AUTO) 22.6 X10'3 (1.8-7.7); NEUTROPHILS % (AUTO) 84.9 % (42-75); PLATELET COUNT 643 X10'3 (140-440); RED BLOOD COUNT 6.88 X10'6 (4.20-5.60); RED CELL DISTRIBUTION WIDTH 23.5 % (11.5-14.5)
[2021-12-16 08:20] LABS: ALBUMIN 2.2 G/DL (3.4-5.0); ANION GAP 7 (8-16); BLOOD UREA NITROGEN 10 MG/DL (7-18); BUN/CREATININE RATIO 21.3 (6.6-38.0); CALCIUM 8.1 MG/DL (8.5-10.1); CHLORIDE 107 MMOL/L (99-107); CREATININE 0.47 MG/DL (0.40-0.90); GLUCOSE 93 MG/DL (70-104); MAGNESIUM 1.6 MG/DL (1.5-2.4); POTASSIUM 3.2 MMOL/L (3.5-5.1); SODIUM 142 MMOL/L (135-145); TOTAL CARBON DIOXIDE 28.2 MMOL/L (24-32); eGFR > 90 ML/MIN
[2021-12-16 08:41] LABS: WHITE BLOOD COUNT 26.6 X10'3 (4.5-11.0)
--- NOTE | 2021-12-16 08:44 | NUR ---
PAGER ID: [phone] Dr Owens MESSAGE: [id number], Helm, WBC, 26.6, thank you Reported to MASSIMO Martinez
[2021-12-16 08:49] LABS: ANISOCYTOSIS 3+; GIANT PLATELET FEW; MICROCYTOSIS 2+; PLATELET ESTIMATE INCREASED; TOTAL CELLS COUNTED 100
[2021-12-16 08:50] LABS: ELLIPTOCYTES 1+; HYPOCHROMASIA 2+; LARGE PLATELETS FEW; POLYCHROMASIA FEW; TARGET CELLS 1+; TEAR DROP CELLS FEW
[2021-12-16] MEDS: levoFLOXACIN-Levaquin 500mg/D5 100 ML IV SCH (09:04)
[2021-12-16] MEDS: busPIRone 15mg tablet PO SCH ×3 (09:04→21:55)
[2021-12-16] MEDS: clopidogrel 75mg tablet PO SCH (09:04)
[2021-12-16] MEDS: potassium Cl 20 mEq SR tablet PO PRN ×2 (09:04→18:18)
[2021-12-16] MEDS: levoTHYROXINE 25mcg tablet PO SCH (09:04)
[2021-12-16] MEDS: docusate sod 100mg capsule PO SCH ×2 (09:04→21:56)
[2021-12-16] MEDS: heparin, porcine 5000 units/ml vial SQ SCH ×2 (09:05→21:56)
[2021-12-16 10:53] VITALS: BP 138/68
[2021-12-16] MEDS ORDERED: VANCOMYCIN LEVEL IV ONE (13:30)
[2021-12-16 16:24] VITALS: BP 172/66
[2021-12-16] MEDS: vancomycin/NS 1 GM ADD-VANTAGE 250 ML IV SCH (17:09)
[2021-12-16 18:00] VITALS: BP 178/76
--- NOTE | 2021-12-16 18:35 | NUR ---
Patient in room PCU 3024. I have received report from Michelle KEYS and had the opportunity to ask questions and assume patient care.
[2021-12-16] MEDS: traZODone 50mg tablet PO SCH (21:56)
[2021-12-16 22:00] VITALS: BP 170/82
--- NOTE | 2021-12-16 23:30 | NUR ---
Agree with Hiwot STEERSMAN assessment except where I documented my findings.
[2021-12-17 06:00] VITALS: BP 147/66
[2021-12-17 06:27] LABS: ALBUMIN 2.1 G/DL (3.4-5.0); ANION GAP 8 (8-16); BLOOD UREA NITROGEN 9 MG/DL (7-18); CALCIUM 8.1 MG/DL (8.5-10.1); CHLORIDE 106 MMOL/L (99-107); CREATININE 0.41 MG/DL (0.40-0.90); GLUCOSE 83 MG/DL (70-104); MAGNESIUM 1.5 MG/DL (1.5-2.4); POTASSIUM 3.4 MMOL/L (3.5-5.1); SODIUM 143 MMOL/L (135-145); TOTAL CARBON DIOXIDE 29.4 MMOL/L (24-32); eGFR > 90 ML/MIN
[2021-12-17 06:33] LABS: EOSINOPHILS # (AUTO) 1.1 X10'3 (0-0.9); EOSINOPHILS % (AUTO) 3.8 % (0-6); NEUTROPHILS # (AUTO) 24.2 X10'3 (1.8-7.7)
[2021-12-17 06:36] LABS: BASOPHILS # (AUTO) 0.2 X10'3 (0-0.2); BASOPHILS % (AUTO) 0.7 % (0-1); LYMPHOCYTES # (AUTO) 1.8 X10'3 (1.1-4.8); LYMPHOCYTES % (AUTO) 6.4 % (21-51); MONOCYTES # (AUTO) 1.5 X10'3 (0-0.9); MONOCYTES % (AUTO) 5.2 % (2-12); NEUTROPHILS % (AUTO) 83.9 % (42-75); PLATELET COUNT 529 X10'3 (140-440)
--- NOTE | 2021-12-17 07:11 | NUR ---
Problems reprioritized. Patient report given, questions answered & plan of care reviewed with Kristen KEYS and Dejan Student nurse.
[2021-12-17] MEDS: JUVEN Smoothie Arginine/Glut./Ca2+Bmb (Juven 19.3pkt) 240ml cup PO SCH ×2 (07:30→17:30)
[2021-12-17 07:55] LABS: HEMATOCRIT 42.5 % (35.0-45.0); HEMOGLOBIN 13.2 g/dl (12.0-16.0); MEAN CORPUSCULAR HEMOGLOBIN 20.2 PG (27.0-31.0); MEAN CORPUSCULAR HGB CONC 31.2 g/dL (33.0-36.5); MEAN CORPUSCULAR VOLUME 64.7 FL (78-98); RED BLOOD COUNT 6.57 X10'6 (4.20-5.60); RED CELL DISTRIBUTION WIDTH 22.4 % (11.5-14.5); WHITE BLOOD COUNT 28.9 X10'3 (4.5-11.0)
[2021-12-17] MEDS: K and/or MAG REPLACEMENT MC SCH ×2 (08:00→20:00)
[2021-12-17] MEDS: levoFLOXACIN-Levaquin 500mg/D5 100 ML IV SCH (08:00)
[2021-12-17 08:36] LABS: TOTAL CELLS COUNTED 100
[2021-12-17 08:38] LABS: ANISOCYTOSIS 3+; HYPOCHROMASIA 2+; MICROCYTOSIS 2+; PLATELET ESTIMATE INCREASED
[2021-12-17 08:39] LABS: ELLIPTOCYTES 1+; GIANT PLATELET FEW; LARGE PLATELETS FEW; STOMATOCYTES FEW; TARGET CELLS 1+; TEAR DROP CELLS 1+
[2021-12-17] MEDS: levoTHYROXINE 25mcg tablet PO SCH (09:27)
[2021-12-17] MEDS: clopidogrel 75mg tablet PO SCH (09:27)
[2021-12-17] MEDS: busPIRone 15mg tablet PO SCH ×3 (09:28→21:15)
[2021-12-17] MEDS: docusate sod 100mg capsule PO SCH ×2 (09:28→20:00)
[2021-12-17] MEDS: heparin, porcine 5000 units/ml vial SQ SCH ×2 (09:30→20:00)
[2021-12-17] MEDS: HYDROcodone/acetaminophen 10/325mg tab PO PRN ×3 (09:30→20:59)
[2021-12-17 10:00] VITALS: BP 127/61
[2021-12-17] MEDS ORDERED: magnesium 4gm in 100ml NS 100 ML IV PRN (10:00)
[2021-12-17] MEDS ORDERED: potassium Cl 40MEQ/1/2NS 520ml 520 ML IV PRN (10:00)
[2021-12-17] MEDS ORDERED: potassium Cl 20 mEq SR tablet PO PRN (10:00)
[2021-12-17] MEDS ORDERED: magnesium Cl slow-release 64mg tablet PO PRN (10:00)
[2021-12-17] MEDS: vancomycin/NS 1 GM ADD-VANTAGE 250 ML IV SCH (16:10)
[2021-12-17] MEDS: potassium Cl 20 mEq SR tablet PO PRN ×2 (16:10→21:00)
[2021-12-17 18:00] VITALS: BP 169/73
--- NOTE | 2021-12-17 18:00 | NUR ---
Patient in room PCU 3027. I have received report from Kristen KEYS and had the opportunity to ask questions and assume patient care.
--- NOTE | 2021-12-17 18:45 | NUR ---
Problems reprioritized. Patient report given, questions answered & plan of care reviewed with .
[2021-12-17] MEDS ORDERED: GADOTERATE MEGLUMINE 7.5 MMOL/15 ML VIAL IV ONE (19:18)
[2021-12-17 20:00] VITALS: BP_SYST 136; BP_SYST 140; BP_DIAS 62; BP_DIAS 64
[2021-12-17] MEDS: normal saline 1000ml 1,000 ML IV SCH (20:00)
[2021-12-17] MEDS: traZODone 50mg tablet PO SCH (21:15)
[2021-12-17 22:00] VITALS: BP 140/64
[2021-12-18 02:00] VITALS: BP 158/74
[2021-12-18 06:00] VITALS: BP 166/83
--- NOTE | 2021-12-18 06:27 | NUR ---
Problems reprioritized. Patient report given, questions answered & plan of care reviewed with Kirsten KEYS.
[2021-12-18 07:08] LABS: MAGNESIUM 1.9 MG/DL (1.5-2.4); POTASSIUM 3.9 MMOL/L (3.5-5.1)
[2021-12-18] MEDS: levoFLOXACIN-Levaquin 500mg/D5 100 ML IV SCH (07:16)
[2021-12-18] MEDS: heparin, porcine 5000 units/ml vial SQ SCH (07:17)
[2021-12-18] MEDS: busPIRone 15mg tablet PO SCH ×3 (07:18→21:04)
[2021-12-18] MEDS: clopidogrel 75mg tablet PO SCH (07:18)
[2021-12-18] MEDS: HYDROcodone/acetaminophen 10/325mg tab PO PRN ×2 (07:18→13:28)
[2021-12-18] MEDS: levoTHYROXINE 25mcg tablet PO SCH (07:19)
[2021-12-18] MEDS: docusate sod 100mg capsule PO SCH ×2 (07:20→21:05)
[2021-12-18] MEDS: JUVEN Smoothie Arginine/Glut./Ca2+Bmb (Juven 19.3pkt) 240ml cup PO SCH ×2 (07:57→18:00)
[2021-12-18] MEDS: K and/or MAG REPLACEMENT MC SCH ×2 (08:00→20:00)
[2021-12-18] MEDS: piperacillin/tazo 3.375gm/50ml 50 ML IV SCH ×2 (10:18→21:05)
[2021-12-18 10:30] VITALS: BP 91/60
[2021-12-18] MEDS ORDERED: heparin 10,000 units/1 ML INJ IV ONE ×2 (10:30→12:25)
[2021-12-18] MEDS ORDERED: heparin 10,000 units/1 ML INJ IV PRN (10:30)
[2021-12-18] MEDS ORDERED: heparin 25,000 UNIT/250ml bag 250 ML IV PRN (10:30)
--- NOTE | 2021-12-18 12:10 | NUR ---
iv infiltrated, will attempt new iv to administer heparin drip
[2021-12-18 12:35] LABS: APTT 29 SECONDS (22-32)
[2021-12-18 13:23] LABS: EOSINOPHILS # (AUTO) 1.3 X10'3 (0-0.9); EOSINOPHILS % (AUTO) 4.7 % (0-6); MONOCYTES # (AUTO) 1.5 X10'3 (0-0.9)
[2021-12-18 13:25] LABS: BASOPHILS # (AUTO) 0.6 X10'3 (0-0.2); BASOPHILS % (AUTO) 2.2 % (0-1); HEMATOCRIT 45.5 % (35.0-45.0); HEMOGLOBIN 13.5 g/dl (12.0-16.0); LYMPHOCYTES # (AUTO) 1.7 X10'3 (1.1-4.8); LYMPHOCYTES % (AUTO) 5.9 % (21-51); MEAN CORPUSCULAR HEMOGLOBIN 19.5 PG (27.0-31.0); MEAN CORPUSCULAR HGB CONC 29.6 g/dL (33.0-36.5); MEAN CORPUSCULAR VOLUME 65.9 FL (78-98); MEAN PLATELET VOLUME 10.1 FL (7.4-10.4); MONOCYTES % (AUTO) 5.1 % (2-12); NEUTROPHILS # (AUTO) 23.3 X10'3 (1.8-7.7); NEUTROPHILS % (AUTO) 82.1 % (42-75); PLATELET COUNT 529 X10'3 (140-440); RED CELL DISTRIBUTION WIDTH 24.2 % (11.5-14.5)
[2021-12-18 13:27] LABS: WHITE BLOOD COUNT 28.4 X10'3 (4.5-11.0)
[2021-12-18] MEDS: heparin 25,000 UNIT/250ml bag 250 ML IV PRN (13:35)
[2021-12-18 13:41] LABS: ANISOCYTOSIS 3+; ELLIPTOCYTES FEW; MICROCYTOSIS 2+; PLATELET ESTIMATE INCREASED; TARGET CELLS FEW; TOTAL CELLS COUNTED 100
[2021-12-18 15:23] VITALS: BP 167/73
[2021-12-18] MEDS: normal saline 1000ml 1,000 ML IV SCH (16:00)
[2021-12-18] MEDS ORDERED: VANCOMYCIN LEVEL IV ONE (16:30)
[2021-12-18] MEDS: vancomycin/NS 1 GM ADD-VANTAGE 250 ML IV SCH (16:38)
[2021-12-18 18:00] VITALS: BP 170/68
--- NOTE | 2021-12-18 18:20 | NUR ---
pt pulled out two peripheral iv's this shift despite primary rn best attempts at securing them. pt continues to state she doesnt know how they keep getting removed. will continue to encourage compliance and educate
[2021-12-18] MEDS: traZODone 50mg tablet PO SCH (21:04)
[2021-12-19] MEDS: piperacillin/tazo 3.375gm/50ml 50 ML IV SCH ×3 (03:42→19:48)
[2021-12-19 04:00] LABS: ALANINE AMINOTRANSFERASE 20 U/L (12-78); ALBUMIN 2.3 G/DL (3.4-5.0); ALBUMIN/GLOBULIN RATIO 0.7 (1.1-1.5); ALKALINE PHOSPHATASE 136 IU/L (46-116); ANION GAP 6 (8-16); ASPARTATE AMINO TRANSFERASE 27 U/L (10-37); BILIRUBIN,TOTAL 0.5 MG/DL (0.1-1.0); BLOOD UREA NITROGEN 20 MG/DL (7-18); BUN/CREATININE RATIO 36.4 (6.6-38.0); CALCIUM 8.6 MG/DL (8.5-10.1); CHLORIDE 105 MMOL/L (99-107); CREATININE 0.55 MG/DL (0.40-0.90); GLUCOSE 119 MG/DL (70-104); POTASSIUM 4.1 MMOL/L (3.5-5.1); SODIUM 140 MMOL/L (135-145); TOTAL CARBON DIOXIDE 28.9 MMOL/L (24-32); TOTAL PROTEIN 5.6 G/DL (6.4-8.2); eGFR > 90 ML/MIN
[2021-12-19] MEDS: heparin 10,000 units/1 ML INJ IV PRN ×3 (04:18→21:33)
--- NOTE | 2021-12-19 04:27 | NUR ---
REPORTED TO ME AT CHANGE OF SHIFT, PHARMACY INTRUCTED NURSING TO INITIATE HEPARIN RATE AT 8.64UNITS. WHEN PTT WAS DRAWN AT 1915 AND RESULTS CAME BACK AT 30, PER PROTOCOL PATIENT TO BE BOLUSED WITH 4000 UNITS AND RATE TO BE INCREASED BY 200 UNITS/HR. HEPARIN FOR BOLUS SCANNED BUT WHEN I ENTERED THE NEW RATE, DECIMAL IS NOT ALLOWED SO ROUNDED UP TO 1100 PER THE PROTOCOL. RATE ON THE PUMP IS AT 1100. AGAIN PTT DRAWN AT 0330 RESULT WAS 22. PATIENT BOLUSED WITH 4000 UNITS AND WHEN HEPARIN SCANNED FOR BOLUS, ENTERED RATE TO BE 1300 PER PROTOCOL AGAIN.
[2021-12-19 06:00] VITALS: BP 159/70
--- NOTE | 2021-12-19 06:41 | NUR ---
Problems reprioritized. Patient report given, questions answered & plan of care reviewed with ALYCIA KEYS.
--- NOTE | 2021-12-19 07:04 | NUR ---
Patient in room PCU 3027. I have received report from Waleska and had the opportunity to ask questions and assume patient care.
[2021-12-19] MEDS: JUVEN Smoothie Arginine/Glut./Ca2+Bmb (Juven 19.3pkt) 240ml cup PO SCH ×2 (07:30→17:40)
[2021-12-19 08:00] VITALS: BP_SYST 132; BP_SYST 136; BP_DIAS 51; BP_DIAS 52
[2021-12-19] MEDS: K and/or MAG REPLACEMENT MC SCH ×2 (08:00→20:00)
[2021-12-19] MEDS: busPIRone 15mg tablet PO SCH ×3 (08:49→21:39)
[2021-12-19] MEDS: docusate sod 100mg capsule PO SCH ×2 (08:49→19:50)
[2021-12-19] MEDS: levoTHYROXINE 25mcg tablet PO SCH (08:50)
[2021-12-19] MEDS: HYDROcodone/acetaminophen 10/325mg tab PO PRN ×3 (08:50→19:49)
[2021-12-19] MEDS: clopidogrel 75mg tablet PO SCH (08:50)
[2021-12-19 11:18] LABS: HEMOGLOBIN 13.1 g/dl (12.0-16.0); MONOCYTES # (AUTO) 1.5 X10'3 (0-0.9); RED CELL DISTRIBUTION WIDTH 23.5 % (11.5-14.5)
[2021-12-19 11:20] LABS: BASOPHILS # (AUTO) 0.4 X10'3 (0-0.2); BASOPHILS % (AUTO) 1.4 % (0-1); EOSINOPHILS # (AUTO) 1.4 X10'3 (0-0.9); EOSINOPHILS % (AUTO) 5.3 % (0-6); HEMATOCRIT 44.2 % (35.0-45.0); LYMPHOCYTES # (AUTO) 1.4 X10'3 (1.1-4.8); LYMPHOCYTES % (AUTO) 5.5 % (21-51); MEAN CORPUSCULAR HEMOGLOBIN 19.5 PG (27.0-31.0); MEAN CORPUSCULAR HGB CONC 29.8 g/dL (33.0-36.5); MEAN CORPUSCULAR VOLUME 65.6 FL (78-98); MEAN PLATELET VOLUME 9.5 FL (7.4-10.4); MONOCYTES % (AUTO) 5.6 % (2-12); NEUTROPHILS # (AUTO) 21.4 X10'3 (1.8-7.7); NEUTROPHILS % (AUTO) 82.2 % (42-75); PLATELET COUNT 533 X10'3 (140-440); RED BLOOD COUNT 6.74 X10'6 (4.20-5.60)
[2021-12-19 11:43] LABS: WHITE BLOOD COUNT 26.1 X10'3 (4.5-11.0)
[2021-12-19] MEDS ORDERED: iohexol 350MG/ML 100ml bottle IV ONE (11:51)
[2021-12-19 12:22] LABS: ANISOCYTOSIS 3+; MICROCYTOSIS 2+; PLATELET ESTIMATE INCREASED; TOTAL CELLS COUNTED 100
[2021-12-19 12:23] LABS: ELLIPTOCYTES FEW; HYPOCHROMASIA 1+; TARGET CELLS 1+
[2021-12-19] MEDS: heparin 25,000 UNIT/250ml bag 250 ML IV PRN (12:41)
[2021-12-19] MEDS: normal saline 1000ml 1,000 ML IV SCH (12:42)
[2021-12-19] MEDS ORDERED: VANCOMYCIN 1,500MG in normal saline IV soln 300 ML IV SCH (17:00)
[2021-12-19 18:00] VITALS: BP 169/75
--- NOTE | 2021-12-19 18:38 | NUR ---
Problems reprioritized. Patient report given, questions answered & plan of care reviewed with Gill.
[2021-12-19 19:00] VITALS: BP 150/76
[2021-12-19] MEDS: traZODone 50mg tablet PO SCH (21:39)
[2021-12-19 22:00] VITALS: BP 121/66
[2021-12-20] VITALS (12 sets, daily range): BP systolic 130–156; BP diastolic 58–80
[2021-12-20] MEDS: piperacillin/tazo 3.375gm/50ml 50 ML IV SCH ×3 (01:13→19:17)
[2021-12-20] MEDS: HYDROcodone/acetaminophen 10/325mg tab PO PRN ×2 (02:41→19:17)
--- NOTE | 2021-12-20 03:00 | NUR ---
Pt refused dressing change. Addendum: 12/20/21 at 0725 by Cyndi Mathur RN Cream put on red rash on bilateral buttocks.
[2021-12-20 05:06] LABS: ALANINE AMINOTRANSFERASE 135 U/L (12-78); ALBUMIN 2.1 G/DL (3.4-5.0); ALBUMIN/GLOBULIN RATIO 0.6 (1.1-1.5); ALKALINE PHOSPHATASE 325 IU/L (46-116); ANION GAP 5 (8-16); ASPARTATE AMINO TRANSFERASE 120 U/L (10-37); BILIRUBIN,TOTAL 0.5 MG/DL (0.1-1.0); BLOOD UREA NITROGEN 19 MG/DL (7-18); BUN/CREATININE RATIO 25.7 (6.6-38.0); CALCIUM 8.5 MG/DL (8.5-10.1); CHLORIDE 107 MMOL/L (99-107); CREATININE 0.74 MG/DL (0.40-0.90); GLUCOSE 93 MG/DL (70-104); POTASSIUM 3.6 MMOL/L (3.5-5.1); SODIUM 143 MMOL/L (135-145); TOTAL CARBON DIOXIDE 30.9 MMOL/L (24-32); TOTAL PROTEIN 5.6 G/DL (6.4-8.2); eGFR 77 ML/MIN
[2021-12-20] MEDS: heparin 25,000 UNIT/250ml bag 250 ML IV PRN ×2 (05:14→16:20)
[2021-12-20 05:26] LABS: BASOPHILS # (AUTO) 0.5 X10'3 (0-0.2); BASOPHILS % (AUTO) 2.4 % (0-1); EOSINOPHILS # (AUTO) 1.3 X10'3 (0-0.9); EOSINOPHILS % (AUTO) 5.5 % (0-6); LYMPHOCYTES # (AUTO) 1.5 X10'3 (1.1-4.8); LYMPHOCYTES % (AUTO) 6.8 % (21-51); MEAN PLATELET VOLUME 9.3 FL (7.4-10.4); MONOCYTES # (AUTO) 1.3 X10'3 (0-0.9); MONOCYTES % (AUTO) 5.7 % (2-12); NEUTROPHILS % (AUTO) 79.6 % (42-75); PLATELET COUNT 523 X10'3 (140-440); WHITE BLOOD COUNT 22.5 X10'3 (4.5-11.0)
[2021-12-20 05:28] LABS: HEMATOCRIT 43.1 % (35.0-45.0); HEMOGLOBIN 13.8 g/dl (12.0-16.0); MEAN CORPUSCULAR HEMOGLOBIN 20.4 PG (27.0-31.0); MEAN CORPUSCULAR HGB CONC 31.9 g/dL (33.0-36.5); MEAN CORPUSCULAR VOLUME 63.8 FL (78-98); RED BLOOD COUNT 6.76 X10'6 (4.20-5.60); RED CELL DISTRIBUTION WIDTH 22.2 % (11.5-14.5)
--- NOTE | 2021-12-20 06:25 | NUR ---
Problems reprioritized. Patient report given, questions answered & plan of care reviewed with Stephanie. Heparin drip verified. Pt resting in bed at time of handoff.
[2021-12-20] MEDS ORDERED: BUPIVAcaine/PF 2.5 mg/ml (0.25%) 30ml vial ONE (06:54)
[2021-12-20] MEDS: normal saline 1000ml 1,000 ML IV SCH (08:00)
[2021-12-20] MEDS: busPIRone 15mg tablet PO SCH ×4 (08:00→21:09)
[2021-12-20] MEDS ORDERED: sevoflurane 250ml liquid IH ONE (08:25)
[2021-12-20] MEDS ORDERED: fentaNYL/PF 50MCG/1 ML 2ML syringe ONE (08:36)
[2021-12-20 09:01] LABS: TOTAL CELLS COUNTED 100
[2021-12-20] MEDS ORDERED: sugammadex 200mg/2ml injection IV ONE (09:01)
[2021-12-20 09:02] LABS: ANISOCYTOSIS 3+; ELLIPTOCYTES FEW; MICROCYTOSIS 2+; PLATELET ESTIMATE INCREASED; SCHISTOCYTES FEW; TARGET CELLS 1+
[2021-12-20 09:03] LABS: HYPOCHROMASIA 1+
[2021-12-20 09:04] LABS: POLYCHROMASIA FEW
[2021-12-20] MEDS ORDERED: propofol inj 20 ML IV ONE (09:05)
[2021-12-20] MEDS ORDERED: LIDOcaine 2% (20mg/ml) 5ml vial ONE (09:05)
[2021-12-20] MEDS ORDERED: rocuronium 10mg/ml inj IV ONE (09:05)
[2021-12-20] MEDS ORDERED: ondansetron/PF 4mg/2ml inj ONE (09:05)
[2021-12-20] MEDS ORDERED: dexamethasone sod phosphate 4mg/ml inj. ONE (09:05)
--- NOTE | 2021-12-20 09:08 | NUR ---
Received from OR via BED, accompanied by Anesthesiologist and report given by PRAVEEN Anesthesiologist. PATIENT WAKING UP, DENIES PAIN, V/S WNL, SCD ON, PIV TO DELONTE, PERIRECTAL DRESSING C/D/I. Addendum: 12/20/21 at 0912 by Vicente Salas RN Amended: Links added.
--- NOTE | 2021-12-20 09:58 | NUR ---
PATIENT HAS MET ALL CRITERIA FOR TRANSFER TO PCU FLOOR. VSS. DRESSINGS INTACT. BED LOW, CALL LIGHT PRESENT AND 2 RAILS UP. RN PRESENT TO ACCEPT CARE OF PATIENT AND REPORT HAS BEEN CALLED. ALL QUESTIONS ANSWERED TO ACCEPTING RN. Addendum: 12/20/21 at 1000 by Vicente Salas RN Amended: Links added.
[2021-12-20] MEDS: clopidogrel 75mg tablet PO SCH (14:12)
[2021-12-20] MEDS: docusate sod 100mg capsule PO SCH ×2 (14:12→20:00)
[2021-12-20] MEDS: levoTHYROXINE 25mcg tablet PO SCH (14:12)
--- NOTE | 2021-12-20 14:34 | NUR ---
Reassessment: Per EMR pt s/p I&D of perirectal abscess today. Pt continues on a heart healthy diet with slightly fluctuating PO intake, averaging 68% PO intake of meals since 12/15. Pt now receiving a Jason smoothie BID, documented with 75-100% PO intake of three ONS with 0% PO intake of two ONS. Combined PO intake of meals and ONS is meeting 100% of patient's estimated nutrient needs. LBM 12/19, moderate in size. No further nutrition intervention implemented at this time. Will continue to follow. Recommendations: 1. Continue heart healthy diet 2. Jason smoothie BIDBD for wound healing 3. MVI supplementation for wound healing/EtOH hx 4. Routine bowel care 5. Weekly scaled weights Addendum: 12/20/21 at [address]én[address] Amended: Links added.
--- NOTE | 2021-12-20 16:41 | NUR ---
Patient in room PCU 3027. I have received report from Gill KEYS and had the opportunity to ask questions and assume patient care.
[2021-12-20] MEDS: JUVEN Smoothie Arginine/Glut./Ca2+Bmb (Juven 19.3pkt) 240ml cup PO SCH (18:00)
--- NOTE | 2021-12-20 18:30 | NUR ---
Patient in room PCU 3027. I have received report from Stephanie and had the opportunity to ask questions and assume patient care. Heparin drip verified at 864 units/hr. Pt resting and in no acute distress.
--- NOTE | 2021-12-20 18:31 | NUR ---
Problems reprioritized. Patient report given, questions answered & plan of care reviewed with Gill KEYS, patient stable at transfer of care.
[2021-12-20] MEDS: K and/or MAG REPLACEMENT MC SCH (20:00)
[2021-12-20] MEDS: traZODone 50mg tablet PO SCH (21:09)
[2021-12-21] VITALS (8 sets, daily range): BP systolic 98–172; BP diastolic 70–87
--- NOTE | 2021-12-21 01:00 | NUR ---
Pt allowed dressing change of perirectal abscess site I&D site. She refused dressing change to left toe and foot.
[2021-12-21 01:11] LABS: APTT 27 SECONDS (22-32)
[2021-12-21] MEDS: piperacillin/tazo 3.375gm/50ml 50 ML IV SCH ×3 (02:03→18:57)
[2021-12-21] MEDS: heparin 10,000 units/1 ML INJ IV PRN ×3 (02:08→21:34)
[2021-12-21] MEDS: HYDROcodone/acetaminophen 10/325mg tab PO PRN ×5 (02:16→23:56)
[2021-12-21] MEDS: normal saline 1000ml 1,000 ML IV SCH ×2 (04:00→06:33)
[2021-12-21 06:13] LABS: HEMOGLOBIN 12.9 g/dl (12.0-16.0); MEAN CORPUSCULAR HGB CONC 29.5 g/dL (33.0-36.5); NEUTROPHILS # (AUTO) 21.3 X10'3 (1.8-7.7)
[2021-12-21 06:14] LABS: BASOPHILS # (AUTO) 0.3 X10'3 (0-0.2); EOSINOPHILS # (AUTO) 1.2 X10'3 (0-0.9); EOSINOPHILS % (AUTO) 4.4 % (0-6); HEMATOCRIT 43.7 % (35.0-45.0); LYMPHOCYTES # (AUTO) 2.2 X10'3 (1.1-4.8); LYMPHOCYTES % (AUTO) 8.3 % (21-51); MEAN CORPUSCULAR HEMOGLOBIN 19.5 PG (27.0-31.0); MEAN CORPUSCULAR VOLUME 65.9 FL (78-98); MEAN PLATELET VOLUME 9.5 FL (7.4-10.4); MONOCYTES # (AUTO) 1.7 X10'3 (0-0.9); MONOCYTES % (AUTO) 6.4 % (2-12); NEUTROPHILS % (AUTO) 79.9 % (42-75); PLATELET COUNT 555 X10'3 (140-440); RED BLOOD COUNT 6.63 X10'6 (4.20-5.60); RED CELL DISTRIBUTION WIDTH 23.8 % (11.5-14.5)
--- NOTE | 2021-12-21 06:16 | NUR ---
Problems reprioritized. Patient report given, questions answered & plan of care reviewed with Gill KEYS.
[2021-12-21 06:31] LABS: ALANINE AMINOTRANSFERASE 72 U/L (12-78); ALBUMIN 2.1 G/DL (3.4-5.0); ALBUMIN/GLOBULIN RATIO 0.6 (1.1-1.5); ALKALINE PHOSPHATASE 255 IU/L (46-116); ANION GAP 4 (8-16); ASPARTATE AMINO TRANSFERASE 30 U/L (10-37); BILIRUBIN,TOTAL 0.3 MG/DL (0.1-1.0); BLOOD UREA NITROGEN 19 MG/DL (7-18); BUN/CREATININE RATIO 33.3 (6.6-38.0); CALCIUM 8.3 MG/DL (8.5-10.1); CHLORIDE 106 MMOL/L (99-107); CREATININE 0.57 MG/DL (0.40-0.90); GLUCOSE 102 MG/DL (70-104); POTASSIUM 3.9 MMOL/L (3.5-5.1); SODIUM 140 MMOL/L (135-145); TOTAL CARBON DIOXIDE 30.4 MMOL/L (24-32); TOTAL PROTEIN 5.4 G/DL (6.4-8.2); eGFR > 90 ML/MIN
--- NOTE | 2021-12-21 06:54 | NUR ---
Problems reprioritized. Patient report given, questions answered & plan of care reviewed with Stephanie. Heparin drip verified. Pt resting in bed and in no acute distress at handoff.
[2021-12-21 07:13] LABS: WHITE BLOOD COUNT 26.7 X10'3 (4.5-11.0)
[2021-12-21] MEDS: JUVEN Smoothie Arginine/Glut./Ca2+Bmb (Juven 19.3pkt) 240ml cup PO SCH ×2 (07:30→17:30)
--- NOTE | 2021-12-21 07:35 | NUR ---
Paged Dr. Charles regarding pts critical WBC of 26.7 PAGER ID: [phone] MESSAGE: [id number], Volodymyr Burton. Pts WBC is 26.7. Stephanie [facility] [id number]
[2021-12-21] MEDS: K and/or MAG REPLACEMENT MC SCH ×2 (08:00→19:04)
[2021-12-21] MEDS ORDERED: amLODIPine 5mg tablet PO ONE (08:35)
[2021-12-21 09:16] LABS: TOTAL CELLS COUNTED 100
[2021-12-21 09:18] LABS: ANISOCYTOSIS 3+; MICROCYTOSIS 2+; PLATELET ESTIMATE INCREASED; POLYCHROMASIA FEW
[2021-12-21 09:19] LABS: HYPOCHROMASIA 2+
[2021-12-21 09:20] LABS: ELLIPTOCYTES 1+; LARGE PLATELETS FEW; STOMATOCYTES FEW; TARGET CELLS FEW; TEAR DROP CELLS 1+
[2021-12-21] MEDS: busPIRone 15mg tablet PO SCH ×3 (09:41→20:04)
[2021-12-21] MEDS: docusate sod 100mg capsule PO SCH ×2 (09:41→19:35)
[2021-12-21] MEDS: clopidogrel 75mg tablet PO SCH (09:41)
[2021-12-21] MEDS: levoTHYROXINE 25mcg tablet PO SCH (09:41)
[2021-12-21 09:48] LABS: APTT 29 SECONDS (22-32)
--- NOTE | 2021-12-21 15:56 | NUR ---
DIABETIC FOOT CARE EDUCATION PROVIDED BY WOUND CARE * Wash your feet daily with lukewarm water and soap. * Dry your feet well, especially between the toes. * Keep the skin moisturized with lotion, but do not apply it between the toes. * Check your feet for blisters, cuts or sores. * Use an emery board to shape your toenails even with the ends of your toes. * Change daily into clean, soft socks or stockings, not too big or too small. * Keep your feet warm and dry. * Preferably wear special padded socks and shoes that fit well. * Never walk barefoot indoors or outdoors. * Examine your shoes everyday for cracks, olivia, nails or anything that could hurt your feet. * Tell your doctor if you find any of these problems or have any concerns after examining your feet. Addendum: 12/21/21 at 1557 by Unique Tracy RN Amended: Links added.
[2021-12-21] MEDS: heparin 25,000 UNIT/250ml bag 250 ML IV PRN (16:57)
--- NOTE | 2021-12-21 19:09 | NUR ---
Problems reprioritized. Patient report given, questions answered & plan of care reviewed with Kevin KEYS, patient stable at transfer of care.
[2021-12-21] MEDS: traZODone 50mg tablet PO SCH (20:04)
[2021-12-22] VITALS (9 sets, daily range): BP systolic 123–182; BP diastolic 51–105
[2021-12-22] MEDS: hydrALAZINE 20mg/ml inj. IV PRN (02:18)
[2021-12-22] MEDS: normal saline 1000ml 1,000 ML IV SCH ×2 (02:20→23:06)
[2021-12-22] MEDS: piperacillin/tazo 3.375gm/50ml 50 ML IV SCH ×3 (02:59→18:08)
[2021-12-22] MEDS: morphine 2 MG/ML inj. syringe IV PRN (03:07)
[2021-12-22] MEDS: heparin 10,000 units/1 ML INJ IV PRN ×3 (05:03→21:18)
[2021-12-22] MEDS: HYDROcodone/acetaminophen 10/325mg tab PO PRN ×4 (05:54→23:20)
[2021-12-22 06:17] LABS: BASOPHILS # (AUTO) 0.3 X10'3 (0-0.2); BASOPHILS % (AUTO) 1.3 % (0-1); EOSINOPHILS # (AUTO) 1.3 X10'3 (0-0.9)
[2021-12-22 06:19] LABS: EOSINOPHILS % (AUTO) 5.4 % (0-6); HEMATOCRIT 46.4 % (35.0-45.0); HEMOGLOBIN 13.4 g/dl (12.0-16.0); LYMPHOCYTES % (AUTO) 8.3 % (21-51); MEAN CORPUSCULAR HEMOGLOBIN 18.9 PG (27.0-31.0); MEAN CORPUSCULAR HGB CONC 28.9 g/dL (33.0-36.5); MEAN CORPUSCULAR VOLUME 65.5 FL (78-98); MEAN PLATELET VOLUME 9.7 FL (7.4-10.4); MONOCYTES # (AUTO) 1.4 X10'3 (0-0.9); MONOCYTES % (AUTO) 5.9 % (2-12); NEUTROPHILS # (AUTO) 19.2 X10'3 (1.8-7.7); NEUTROPHILS % (AUTO) 79.1 % (42-75); PLATELET COUNT 609 X10'3 (140-440); RED BLOOD COUNT 7.08 X10'6 (4.20-5.60); RED CELL DISTRIBUTION WIDTH 23.9 % (11.5-14.5); WHITE BLOOD COUNT 24.2 X10'3 (4.5-11.0)
[2021-12-22 06:26] LABS: ALANINE AMINOTRANSFERASE 54 U/L (12-78); ALBUMIN 2.3 G/DL (3.4-5.0); ALBUMIN/GLOBULIN RATIO 0.7 (1.1-1.5); ALKALINE PHOSPHATASE 234 IU/L (46-116); ANION GAP 6 (8-16); ASPARTATE AMINO TRANSFERASE 23 U/L (10-37); BILIRUBIN,TOTAL 0.4 MG/DL (0.1-1.0); BLOOD UREA NITROGEN 18 MG/DL (7-18); CALCIUM 8.7 MG/DL (8.5-10.1); CHLORIDE 106 MMOL/L (99-107); GLUCOSE 99 MG/DL (70-104); POTASSIUM 3.5 MMOL/L (3.5-5.1); SODIUM 139 MMOL/L (135-145); TOTAL CARBON DIOXIDE 26.9 MMOL/L (24-32); TOTAL PROTEIN 5.8 G/DL (6.4-8.2); eGFR > 90 ML/MIN
[2021-12-22 07:13] LABS: ANISOCYTOSIS 3+; HYPOCHROMASIA 2+; MICROCYTOSIS 2+; PLATELET ESTIMATE INCREASED; TOTAL CELLS COUNTED 100
[2021-12-22 07:14] LABS: ELLIPTOCYTES 1+; LARGE PLATELETS FEW; POLYCHROMASIA 1+; TARGET CELLS FEW; TOXIC GRANULATION 1+
[2021-12-22] MEDS: JUVEN Smoothie Arginine/Glut./Ca2+Bmb (Juven 19.3pkt) 240ml cup PO SCH ×3 (07:30→18:30)
[2021-12-22] MEDS: K and/or MAG REPLACEMENT MC SCH ×2 (08:00→19:05)
[2021-12-22] MEDS: docusate sod 100mg capsule PO SCH ×2 (08:09→19:05)
[2021-12-22] MEDS: busPIRone 15mg tablet PO SCH ×3 (08:09→20:37)
[2021-12-22] MEDS: amLODIPine 5mg tablet PO SCH (08:11)
[2021-12-22] MEDS: clopidogrel 75mg tablet PO SCH (08:11)
[2021-12-22] MEDS: levoTHYROXINE 25mcg tablet PO SCH (08:12)
[2021-12-22] MEDS: heparin 25,000 UNIT/250ml bag 250 ML IV PRN (11:54)
[2021-12-22] MEDS ORDERED: VANCOMYCIN LEVEL IV ONE (16:30)
--- NOTE | 2021-12-22 18:45 | NUR ---
Problems reprioritized. Patient report given, questions answered & plan of care reviewed with Kevin KEYS, patient stable at transfer of care.
[2021-12-22] MEDS: traZODone 50mg tablet PO SCH (20:37)
[2021-12-23] MEDS: piperacillin/tazo 3.375gm/50ml 50 ML IV SCH ×3 (01:11→17:37)
[2021-12-23 02:20] VITALS: BP 159/70
[2021-12-23] MEDS: heparin 25,000 UNIT/250ml bag 250 ML IV PRN ×2 (04:00→17:58)
[2021-12-23 04:14] LABS: BASOPHILS # (AUTO) 0.4 X10'3 (0-0.2); LYMPHOCYTES # (AUTO) 2.3 X10'3 (1.1-4.8)
[2021-12-23 04:16] LABS: BASOPHILS % (AUTO) 1.9 % (0-1); EOSINOPHILS # (AUTO) 1.4 X10'3 (0-0.9); EOSINOPHILS % (AUTO) 6.5 % (0-6); LYMPHOCYTES % (AUTO) 11.1 % (21-51); MEAN CORPUSCULAR HEMOGLOBIN 19.3 PG (27.0-31.0); MEAN PLATELET VOLUME 9.7 FL (7.4-10.4); MONOCYTES # (AUTO) 1.3 X10'3 (0-0.9); MONOCYTES % (AUTO) 6.3 % (2-12); NEUTROPHILS # (AUTO) 15.5 X10'3 (1.8-7.7); NEUTROPHILS % (AUTO) 74.2 % (42-75); PLATELET COUNT 615 X10'3 (140-440); WHITE BLOOD COUNT 20.9 X10'3 (4.5-11.0)
[2021-12-23] MEDS: HYDROcodone/acetaminophen 10/325mg tab PO PRN ×3 (04:20→17:37)
[2021-12-23 04:24] LABS: ALANINE AMINOTRANSFERASE 60 U/L (12-78); ALBUMIN 2.3 G/DL (3.4-5.0); ALBUMIN/GLOBULIN RATIO 0.7 (1.1-1.5); ALKALINE PHOSPHATASE 217 IU/L (46-116); ANION GAP 10 (8-16); ASPARTATE AMINO TRANSFERASE 30 U/L (10-37); BILIRUBIN,TOTAL 0.4 MG/DL (0.1-1.0); BLOOD UREA NITROGEN 19 MG/DL (7-18); BUN/CREATININE RATIO 27.5 (6.6-38.0); CALCIUM 8.6 MG/DL (8.5-10.1); CHLORIDE 108 MMOL/L (99-107); CREATININE 0.69 MG/DL (0.40-0.90); GLUCOSE 99 MG/DL (70-104); POTASSIUM 3.6 MMOL/L (3.5-5.1); SODIUM 145 MMOL/L (135-145); TOTAL CARBON DIOXIDE 27.5 MMOL/L (24-32); TOTAL PROTEIN 5.8 G/DL (6.4-8.2); eGFR 83 ML/MIN
[2021-12-23 04:40] LABS: HEMATOCRIT 42.1 % (35.0-45.0); HEMOGLOBIN 13.1 g/dl (12.0-16.0); MEAN CORPUSCULAR VOLUME 64.2 FL (78-98); RED BLOOD COUNT 6.56 X10'6 (4.20-5.60)
[2021-12-23 04:41] LABS: RED CELL DISTRIBUTION WIDTH 22.1 % (11.5-14.5)
[2021-12-23 04:47] LABS: ANISOCYTOSIS 3+; MICROCYTOSIS 2+; PLATELET ESTIMATE INCREASED; TOTAL CELLS COUNTED 100
[2021-12-23 04:48] LABS: ELLIPTOCYTES 1+; HYPOCHROMASIA 1+; LARGE PLATELETS FEW; TARGET CELLS FEW
[2021-12-23] MEDS: heparin 10,000 units/1 ML INJ IV PRN (05:00)
[2021-12-23 06:06] VITALS: BP 171/55
[2021-12-23] MEDS: K and/or MAG REPLACEMENT MC SCH ×2 (07:51→19:57)
[2021-12-23] MEDS: docusate sod 100mg capsule PO SCH ×2 (07:52→19:57)
[2021-12-23] MEDS: levoTHYROXINE 25mcg tablet PO SCH (08:38)
[2021-12-23] MEDS: busPIRone 15mg tablet PO SCH ×3 (08:39→21:01)
[2021-12-23] MEDS: clopidogrel 75mg tablet PO SCH (08:39)
[2021-12-23] MEDS: amLODIPine 5mg tablet PO SCH (08:40)
[2021-12-23 10:49] VITALS: BP 166/70
--- NOTE | 2021-12-23 12:44 | NUR ---
PRESSURE ULCER EDUCATION: DEFINITION: A pressure ulcer is an area of skin that breaks down when you stay in one position too long. The constant pressure against the skin reduces the blood flow to that area and the affected tissue dies. CAUSES: "Being bedridden or in a wheelchair "Fragile skin "Having a chronic condition, such as diabetes or vascular disease "Inability to move certain parts of your body without assistance "Older age "Incontinence of urine or stool SYMPTOMS: "A reddened area that DOES NOT turn white when pressed on - this can be the beginning of a pressure ulcer "A blister, deep sore or a crater - these can be advanced pressure ulcers FIRST AID: "Relieve the pressure on this area "Keep the area clean and dry "Call your primary doctor if you see any of the above symptoms "DO NOT massage the area "DO NOT use a donut shaped or ring shaped pillow- these actually interfere with the blood flow and cause complications PREVENTION: "Check for pressure ulcers everyday "Change position at least every two hours to relieve pressure "Use items that help relieve pressure- pillows, sheepskin, foam padding, and powders. "Keep skin clean and dry "Eat healthy well balanced meals "Exercise daily IF YOU SEE ANY OF THESE SYMPTOMS WHILE IN THE HOSPITAL - TELL YOUR NURSE IMMEDIATELY. IF YOU SEE ANY OF THESE SYMPTOMS WHILE AT HOME OR HAVE ANY QUESTIONS OR CONCERNS ABOUT PRESSURE ULCERS - CALL YOUR PRIMARY DOCTOR IMMEDIATELY. Addendum: 12/23/21 at 1245 by Josselin Baron RN Amended: Links added.
[2021-12-23 15:24] VITALS: BP 173/79
[2021-12-23] MEDS: hydrALAZINE 20mg/ml inj. IV PRN (15:44)
[2021-12-23 18:00] VITALS: BP 150/70
--- NOTE | 2021-12-23 18:00 | NUR ---
Patient in room PCU 3027. I have received report from Zain KEYS and had the opportunity to ask questions and assume patient care.
[2021-12-23] MEDS: traZODone 50mg tablet PO SCH (21:01)
[2021-12-23] MEDS: acetaminophen 325mg tablet PO PRN (21:01)
[2021-12-23 22:00] VITALS: BP 148/70
[2021-12-24] VITALS (7 sets, daily range): BP systolic 130–187; BP diastolic 64–81
[2021-12-24] MEDS: heparin 10,000 units/1 ML INJ IV PRN (00:11)
[2021-12-24] MEDS: HYDROcodone/acetaminophen 10/325mg tab PO PRN ×2 (02:54→23:41)
[2021-12-24] MEDS: piperacillin/tazo 3.375gm/50ml 50 ML IV SCH ×3 (02:55→19:33)
--- NOTE | 2021-12-24 06:43 | NUR ---
Patient in room PCU 3027. I have received report from yary arango and had the opportunity to ask questions and assume patient care. Educated rn on heparin protocol, ptt NOT drawn at 0200. Ordered STAT ptt this morning.
--- NOTE | 2021-12-24 07:23 | NUR ---
Problems reprioritized. Patient report given, questions answered & plan of care reviewed with Kristen KEYS.
[2021-12-24] MEDS: busPIRone 15mg tablet PO SCH ×3 (07:55→19:34)
[2021-12-24] MEDS: amLODIPine 5mg tablet PO SCH (07:55)
[2021-12-24] MEDS: levoTHYROXINE 25mcg tablet PO SCH (07:56)
[2021-12-24] MEDS: clopidogrel 75mg tablet PO SCH (07:56)
[2021-12-24] MEDS: K and/or MAG REPLACEMENT MC SCH ×2 (08:00→19:19)
[2021-12-24] MEDS: JUVEN Smoothie Arginine/Glut./Ca2+Bmb (Juven 19.3pkt) 240ml cup PO SCH ×2 (08:00→17:40)
[2021-12-24] MEDS: docusate sod 100mg capsule PO SCH ×2 (08:00→19:51)
--- NOTE | 2021-12-24 10:22 | NUR ---
F/u 12/24: Pt PO mostly ~84-100% avg heart healthy meals and 75-100% Jason smoothie BID meeting estimated needs. Noted brief decline 25% dinner last night though diarrhea noted as well possibly impacting dinner PO. LBM 12/23. Noted MCV 64.2 FL persistently low this admit; ROSIO d/w RN regarding iron panel and/or routine MVI w/ Fe supplementation if physician agreeable. Will monitor for further nutrition intervention needs this admit. Recommendations: 1. Continue heart healthy diet 2. Jason smoothie BIDBD for wound healing 3. MVI w/ Fe supplementation for wound healing/EtOH hx/low MCV per physician discretion 4. bowel care per rx 5. Weekly scaled weights Addendum: 12/24/21 at [address] Amended: Links added.
[2021-12-24] MEDS: heparin 25,000 UNIT/250ml bag 250 ML IV PRN ×2 (10:38→23:33)
[2021-12-24 11:22] LABS: ALBUMIN 2.5 G/DL (3.4-5.0); ANION GAP 10 (8-16); BLOOD UREA NITROGEN 19 MG/DL (7-18); BUN/CREATININE RATIO 33.3 (6.6-38.0); CALCIUM 8.9 MG/DL (8.5-10.1); CHLORIDE 108 MMOL/L (99-107); CREATININE 0.57 MG/DL (0.40-0.90); GLUCOSE 102 MG/DL (70-104); SODIUM 142 MMOL/L (135-145); TOTAL CARBON DIOXIDE 24.4 MMOL/L (24-32); eGFR > 90 ML/MIN
[2021-12-24 11:26] LABS: MEAN CORPUSCULAR HEMOGLOBIN 19.6 PG (27.0-31.0)
[2021-12-24 11:27] LABS: BASOPHILS # (AUTO) 0.1 X10'3 (0-0.2); BASOPHILS % (AUTO) 0.3 % (0-1); EOSINOPHILS # (AUTO) 1.6 X10'3 (0-0.9); EOSINOPHILS % (AUTO) 6.1 % (0-6); HEMOGLOBIN 13.6 g/dl (12.0-16.0); LYMPHOCYTES # (AUTO) 2.1 X10'3 (1.1-4.8); MEAN CORPUSCULAR HGB CONC 29.6 g/dL (33.0-36.5); MEAN CORPUSCULAR VOLUME 66.3 FL (78-98); MONOCYTES # (AUTO) 1.2 X10'3 (0-0.9); MONOCYTES % (AUTO) 4.4 % (2-12); NEUTROPHILS # (AUTO) 21.1 X10'3 (1.8-7.7); NEUTROPHILS % (AUTO) 81.2 % (42-75); PLATELET COUNT 733 X10'3 (140-440); RED BLOOD COUNT 6.94 X10'6 (4.20-5.60)
[2021-12-24] MEDS: normal saline 1000ml 1,000 ML IV SCH (12:06)
[2021-12-24 12:15] LABS: ANISOCYTOSIS 3+; ELLIPTOCYTES 1+; HYPOCHROMASIA 1+; MICROCYTOSIS 2+; PLATELET ESTIMATE INCREASED; TARGET CELLS FEW; TOTAL CELLS COUNTED 100
[2021-12-24 12:16] LABS: GIANT PLATELET FEW; LARGE PLATELETS MODERATE
[2021-12-24] MEDS: HYDROcodone/acetaminophen 5mg/325mg tablet PO PRN (12:21)
--- NOTE | 2021-12-24 15:44 | NUR ---
Pt repositions independently in bed. pt continues to be incontinent of urine and stool. wound care performed per orders. Pt educated on caution with iv (pt has pulled out 5+ iv's ). Pt states she knows when she has to go to the bathroom however despite nursing asking for pt to call them when she gets urge pt does not call. Pt buttock is excoriated from incontinence. Primary rn callled Inpatient wound care requesting recommendations. Will continue to monitor patient.
[2021-12-24] MEDS: hydrALAZINE 20mg/ml inj. IV PRN (16:59)
[2021-12-24] MEDS: morphine 2 MG/ML inj. syringe IV PRN (19:33)
[2021-12-24] MEDS: traZODone 50mg tablet PO SCH (19:34)
--- NOTE | 2021-12-24 19:51 | NUR ---
Pt had loose stool hold DSS at 2000 PM scheduled.
[2021-12-25] MEDS: piperacillin/tazo 3.375gm/50ml 50 ML IV SCH ×3 (01:58→19:47)
[2021-12-25 02:00] VITALS: BP 111/60
--- NOTE | 2021-12-25 02:04 | NUR ---
Aptt 0200 AM result was 71, it is therapeutic range without change anything, continue to current rate 2000 units/hour, recheck Aptt at 08:00 AM on 12/25/2021
--- NOTE | 2021-12-25 05:49 | NUR ---
Did change dry float and wick 3 times related to Pt cannot be put brief on, her bottocks should be opened to air, she had AKA, it is unable to hold wick well, it causes frequently wet.
[2021-12-25] MEDS: normal saline 1000ml 1,000 ML IV SCH ×2 (05:55→23:54)
[2021-12-25] MEDS: multivitamins, therapeutics tablet PO SCH (07:59)
[2021-12-25] MEDS: K and/or MAG REPLACEMENT MC SCH ×3 (08:00→19:28)
[2021-12-25] MEDS: docusate sod 100mg capsule PO SCH ×2 (08:00→19:53)
[2021-12-25] MEDS: levoTHYROXINE 25mcg tablet PO SCH (08:00)
[2021-12-25] MEDS: amLODIPine 5mg tablet PO SCH (08:01)
[2021-12-25] MEDS: busPIRone 15mg tablet PO SCH ×3 (08:02→19:50)
[2021-12-25] MEDS: HYDROcodone/acetaminophen 10/325mg tab PO PRN ×2 (08:03→12:15)
[2021-12-25] MEDS: JUVEN Smoothie Arginine/Glut./Ca2+Bmb (Juven 19.3pkt) 240ml cup PO SCH ×2 (08:19→17:34)
[2021-12-25] MEDS: clopidogrel 75mg tablet PO SCH (08:21)
--- NOTE | 2021-12-25 09:14 | NUR ---
PAGER ID: [phone] MESSAGE: MOLLY [email or web address], DO YOU WANT ANY LABS ON 0659T? THX (53 character message out of a maximum of 240) CLOSE [X] SEND ANOTHER PAGE Thank you for visiting [facility] promotional table spacer promotional table spacer
[2021-12-25 10:04] LABS: ALANINE AMINOTRANSFERASE 37 U/L (12-78); ALBUMIN 2.5 G/DL (3.4-5.0); ALBUMIN/GLOBULIN RATIO 0.7 (1.1-1.5); ALKALINE PHOSPHATASE 187 IU/L (46-116); ANION GAP 8 (8-16); ASPARTATE AMINO TRANSFERASE 25 U/L (10-37); BILIRUBIN,TOTAL 0.3 MG/DL (0.1-1.0); BLOOD UREA NITROGEN 17 MG/DL (7-18); BUN/CREATININE RATIO 26.2 (6.6-38.0); CALCIUM 8.8 MG/DL (8.5-10.1); CHLORIDE 107 MMOL/L (99-107); CREATININE 0.65 MG/DL (0.40-0.90); FERRITIN 22 NG/ML (8-252); GLUCOSE 157 MG/DL (70-104); POTASSIUM 3.4 MMOL/L (3.5-5.1); SODIUM 141 MMOL/L (135-145); TOTAL CARBON DIOXIDE 25.8 MMOL/L (24-32); TOTAL PROTEIN 6.1 G/DL (6.4-8.2); eGFR 89 ML/MIN
[2021-12-25 10:33] VITALS: BP 145/67
[2021-12-25 11:40] LABS: HEMATOCRIT 45.5 % (35.0-45.0); MEAN CORPUSCULAR VOLUME 66.4 FL (78-98)
[2021-12-25 11:43] LABS: BASOPHILS # (AUTO) 0.3 X10'3 (0-0.2); BASOPHILS % (AUTO) 1.1 % (0-1); EOSINOPHILS # (AUTO) 1.6 X10'3 (0-0.9); EOSINOPHILS % (AUTO) 5.8 % (0-6); HEMOGLOBIN 13.1 g/dl (12.0-16.0); LYMPHOCYTES # (AUTO) 2.4 X10'3 (1.1-4.8); LYMPHOCYTES % (AUTO) 8.8 % (21-51); MEAN CORPUSCULAR HEMOGLOBIN 19.1 PG (27.0-31.0); MEAN CORPUSCULAR HGB CONC 28.8 g/dL (33.0-36.5); MEAN PLATELET VOLUME 9.7 FL (7.4-10.4); MONOCYTES # (AUTO) 1.4 X10'3 (0-0.9); MONOCYTES % (AUTO) 5.2 % (2-12); NEUTROPHILS # (AUTO) 21.3 X10'3 (1.8-7.7); NEUTROPHILS % (AUTO) 79.1 % (42-75); PLATELET COUNT 772 X10'3 (140-440); RED BLOOD COUNT 6.85 X10'6 (4.20-5.60); RED CELL DISTRIBUTION WIDTH 23.4 % (11.5-14.5)
[2021-12-25 11:53] LABS: % IRON SATURATION 6 % (11-46); IRON 16 UG/DL (49-151); TOTAL IRON BINDING CAPACITY 260 UG/DL (259-388)
[2021-12-25 12:11] LABS: WHITE BLOOD COUNT 26.9 X10'3 (4.5-11.0)
[2021-12-25 12:12] LABS: TOTAL CELLS COUNTED 100
[2021-12-25 12:13] LABS: ANISOCYTOSIS 3+; ELLIPTOCYTES 1+; GIANT PLATELET FEW; HYPOCHROMASIA 1+; LARGE PLATELETS MODERATE; MICROCYTOSIS 2+; PLATELET ESTIMATE INCREASED; POLYCHROMASIA FEW; TARGET CELLS FEW
[2021-12-25] MEDS ORDERED: magnesium Cl slow-release 64mg tablet PO PRN (12:35)
[2021-12-25] MEDS ORDERED: magnesium 4gm in 100ml NS 100 ML IV PRN (12:35)
[2021-12-25] MEDS ORDERED: potassium Cl 20 mEq SR tablet PO PRN (12:35)
[2021-12-25] MEDS ORDERED: potassium Cl 40MEQ/1/2NS 520ml 520 ML IV PRN (12:35)
[2021-12-25] MEDS: potassium Cl 20 mEq SR tablet PO PRN ×2 (12:44→19:55)
[2021-12-25] MEDS: heparin 25,000 UNIT/250ml bag 250 ML IV PRN (14:34)
[2021-12-25 15:18] VITALS: BP 134/53
[2021-12-25 18:00] VITALS: BP 170/67
--- NOTE | 2021-12-25 18:05 | NUR ---
primary rn inspected rectum/abscess area on pt. unable to see any packing, will pass on in report
[2021-12-25] MEDS: traZODone 50mg tablet PO SCH (19:50)
[2021-12-25] MEDS: morphine 2 MG/ML inj. syringe IV PRN (19:51)
--- NOTE | 2021-12-25 19:53 | NUR ---
Refused DSS 100 mg PO x 3. said tomorrow will do surgery I do not want it
--- NOTE | 2021-12-25 20:57 | NUR ---
aPTT AT 2030 pm WAS 75 it is theraputic range, no change for rate, continue the same rate 20 ml/h, next Aptt will be at 0300 AM on 12/26/2021
[2021-12-25 22:00] VITALS: BP 150/66
[2021-12-26] VITALS (24 sets, daily range): BP systolic 108–171; BP diastolic 45–88
[2021-12-26] MEDS: piperacillin/tazo 3.375gm/50ml 50 ML IV SCH ×3 (02:01→19:05)
[2021-12-26] MEDS: heparin 25,000 UNIT/250ml bag 250 ML IV PRN (02:01)
[2021-12-26] MEDS: HYDROcodone/acetaminophen 10/325mg tab PO PRN (03:20)
[2021-12-26] MEDS: potassium Cl 20 mEq SR tablet PO PRN (03:28)
--- NOTE | 2021-12-26 04:00 | NUR ---
Pt 0400 AM Aptt is 76, decrease heparin drops to 1900 units/kg/h=19 ml/h, recheck Aptt at 1000 AM on 12/26/2021.
--- NOTE | 2021-12-26 06:00 | NUR ---
RECEIVED REPORT FROM DUNIA RN
[2021-12-26 06:43] LABS: HEMOGLOBIN 13.6 g/dl (12.0-16.0)
[2021-12-26 06:45] LABS: BASOPHILS # (AUTO) 0.4 X10'3 (0-0.2); BASOPHILS % (AUTO) 1.3 % (0-1); EOSINOPHILS # (AUTO) 1.5 X10'3 (0-0.9); EOSINOPHILS % (AUTO) 5.5 % (0-6); HEMATOCRIT 46.4 % (35.0-45.0); LYMPHOCYTES # (AUTO) 2.7 X10'3 (1.1-4.8); LYMPHOCYTES % (AUTO) 9.8 % (21-51); MEAN CORPUSCULAR HEMOGLOBIN 19.6 PG (27.0-31.0); MEAN CORPUSCULAR HGB CONC 29.3 g/dL (33.0-36.5); MEAN PLATELET VOLUME 9.7 FL (7.4-10.4); MONOCYTES # (AUTO) 1.5 X10'3 (0-0.9); MONOCYTES % (AUTO) 5.4 % (2-12); NEUTROPHILS # (AUTO) 21.2 X10'3 (1.8-7.7); PLATELET COUNT 803 X10'3 (140-440); RED BLOOD COUNT 6.92 X10'6 (4.20-5.60); RED CELL DISTRIBUTION WIDTH 23.8 % (11.5-14.5)
[2021-12-26] MEDS ORDERED: heparin 10,000 units/1 ML INJ ONE (07:10)
[2021-12-26] MEDS ORDERED: iohexol 350MG/ML 100ml bottle IV ONE (07:10)
[2021-12-26 07:14] LABS: ALANINE AMINOTRANSFERASE 31 U/L (12-78); ALBUMIN 2.6 G/DL (3.4-5.0); ALBUMIN/GLOBULIN RATIO 0.7 (1.1-1.5); ALKALINE PHOSPHATASE 191 IU/L (46-116); ANION GAP 6 (8-16); ASPARTATE AMINO TRANSFERASE 22 U/L (10-37); BILIRUBIN,TOTAL 0.4 MG/DL (0.1-1.0); BLOOD UREA NITROGEN 19 MG/DL (7-18); BUN/CREATININE RATIO 26.8 (6.6-38.0); CALCIUM 8.8 MG/DL (8.5-10.1); CHLORIDE 107 MMOL/L (99-107); CREATININE 0.71 MG/DL (0.40-0.90); GLUCOSE 98 MG/DL (70-104); POTASSIUM 4.4 MMOL/L (3.5-5.1); SODIUM 139 MMOL/L (135-145); TOTAL CARBON DIOXIDE 26.3 MMOL/L (24-32); TOTAL PROTEIN 6.2 G/DL (6.4-8.2); eGFR 81 ML/MIN
[2021-12-26 07:25] LABS: WHITE BLOOD COUNT 27.2 X10'3 (4.5-11.0)
--- NOTE | 2021-12-26 07:25 | NUR ---
RECEIVED CRITICAL LAB VALUE FROM LABORATORY OVER THE PHONE. WBC REPORTED AT 27.2 H. WILL NOTIFY MD. CAM, STUDENT RN
--- NOTE | 2021-12-26 07:29 | NUR ---
Paged PAGER ID: [phone] MESSAGE: [id number]. Volodymyr. Critical WBC 27.2. Charla Davidson [phone]
[2021-12-26] MEDS: JUVEN Smoothie Arginine/Glut./Ca2+Bmb (Juven 19.3pkt) 240ml cup PO SCH ×2 (07:30→19:06)
[2021-12-26] MEDS: K and/or MAG REPLACEMENT MC SCH ×4 (08:00→20:00)
[2021-12-26] MEDS: clopidogrel 75mg tablet PO SCH (08:00)
[2021-12-26] MEDS: busPIRone 15mg tablet PO SCH ×3 (08:00→20:48)
[2021-12-26] MEDS: multivitamins, therapeutics tablet PO SCH (08:00)
[2021-12-26] MEDS: docusate sod 100mg capsule PO SCH ×3 (08:00→20:47)
[2021-12-26] MEDS: levoTHYROXINE 25mcg tablet PO SCH (08:00)
[2021-12-26] MEDS: amLODIPine 5mg tablet PO SCH (08:00)
--- NOTE | 2021-12-26 08:30 | NUR ---
Pt was taken down to OR
[2021-12-26 08:38] LABS: ANISOCYTOSIS 3+; LARGE PLATELETS MANY; MICROCYTOSIS 2+; PLATELET ESTIMATE INCREASED; TOTAL CELLS COUNTED 100
[2021-12-26 08:39] LABS: ELLIPTOCYTES FEW; HYPOCHROMASIA 1+
[2021-12-26] MEDS ORDERED: midazolam 1 mg/ML 2ml injection ONE (08:45)
[2021-12-26] MEDS ORDERED: propofol inj 20 ML IV ONE (08:45)
[2021-12-26] MEDS ORDERED: fentaNYL /PF 50mcg/ml 5ml ampule ONE (08:45)
[2021-12-26] MEDS ORDERED: LIDOcaine 2% (20mg/ml) 5ml vial ONE (08:45)
[2021-12-26] MEDS ORDERED: ondansetron/PF 4mg/2ml inj ONE (08:46)
[2021-12-26] MEDS ORDERED: rocuronium 10mg/ml inj IV ONE ×2 (08:46→11:10)
--- NOTE | 2021-12-26 08:46 | NUR ---
Called report to recovery.
[2021-12-26] MEDS ORDERED: ondansetron/PF 4mg/2ml inj IV PRN (08:50)
[2021-12-26] MEDS ORDERED: ringers solution, lacted 1,000 ML IV SCH (08:50)
[2021-12-26] MEDS ORDERED: hydrALAZINE 20mg/ml inj. IV PRN (08:50)
[2021-12-26] MEDS ORDERED: morphine 2 MG/ML inj. syringe IV PRN (08:50)
[2021-12-26] MEDS ORDERED: labetalol 20mg/4ml (5mg/ml) syringe IV PRN (08:50)
[2021-12-26] MEDS ORDERED: fentaNYL/PF 50MCG/1 ML 2ML syringe IV PRN ×2 (08:50)
[2021-12-26] MEDS ORDERED: morphine 4 MG/ML inj SYRINge IV PRN (08:50)
[2021-12-26] MEDS ORDERED: dexamethasone sod phosphate 4mg/ml inj. ONE (10:19)
[2021-12-26] MEDS ORDERED: albumin (human) 5% 500 ML NS IV ONE ×2 (10:55)
[2021-12-26] MEDS ORDERED: heparin 1,000unit/ml 10ml vial 10 ML ONE (10:59)
[2021-12-26] MEDS ORDERED: glycopyrrolate 0.2mg/ml inj ONE (11:45)
--- NOTE | 2021-12-26 13:28 | NUR ---
Received from OR via , accompanied by Anesthesiologist ASHLEY and OR NURSE report given by Anesthesiolgist. PT IS DROWSY AND ABLE TO FOLLOW COMMANDS. C/O PAIN AT 8 TO LEFT LEG; PAIN MED GIVEN WITH RELIEF. PT ON NC TO 5 LPM SAT AT 92-95%. WOUND VAC TO LEFT THIGH WITHOUT DRAINAGE. GRAFT SITE TO LEFT THIGH/WOUNDVAC. RT IJ WITH FLUIDS RUNNING. LT RADIAL ART LINE; ART LINE ZEROED. MEASURING WITH AUTOAMTIC CUFF TO RT ARM. Addendum: 12/26/21 at 1404 by Alis Melo RN Amended: Links added.
[2021-12-26 13:31] LABS: APTT > 139 SECONDS (22-32)
--- NOTE | 2021-12-26 13:50 | NUR ---
Packed up all personal belongings (all hospital items, nothing personal). Taken down to room 2012.
[2021-12-26] MEDS ORDERED: naloxone 0.4 mg/ml inj IV PRN (13:55)
--- NOTE | 2021-12-26 15:18 | NUR ---
Report called to receiving nurse; WILLA. Transferred via BED ON PACU MONITOR AND 02 TANK AT 4LPM NC. PHELPS PATENT AND DRAINING WELL. VSS.Belongings SHOULD BE TRANSFERRED FROM PCU TO ICU . Special Issues communicated to receiving nurse. Addendum: 12/26/21 at 1553 by Alis Melo RN Amended: Links added.
--- NOTE | 2021-12-26 18:28 | NUR ---
Received pt at 1530, pleasant alert and oriented, very small amount of drainage to left leg dressing, WV to L upper groin., dressing in place to JOSSUE FERNANDEZ. pt has episodes of HR up to the 140's , unable to determine rhythm at that time, otherwise 90's and SR, notified Dr Young and Dr Hedrick. Dr Young rounded, DC art in anticipation of eliquis starting tomorrow.
--- NOTE | 2021-12-26 18:36 | NUR ---
Patient in room CICU 2011. I have received report from Cal KEYS and had the opportunity to ask questions and assume patient care.
--- NOTE | 2021-12-26 20:22 | NUR ---
Pt BP less than desired range of 130-160. Pulse strong by doppler, making urine, HR 90s. Called Dr Young to ask for any orders, none at this time.
[2021-12-26] MEDS: traZODone 50mg tablet PO SCH (20:48)
[2021-12-26] MEDS: NYSTATIN CREAM - 30GM TUBE TP SCH (20:48)
[2021-12-26] MEDS: HYDROcodone/acetaminophen 5mg/325mg tablet PO PRN (20:49)
--- NOTE | 2021-12-26 23:13 | NUR ---
Pt impulsive, sits up, moves herself, moves pillows from under herself, uses elbows to reposition frequently. O2 sats drop when sleeping, NC in mouth at 5L.
[2021-12-27] VITALS (23 sets, daily range): BP systolic 104–170; BP diastolic 48–75
[2021-12-27] MEDS: normal saline 1000ml 1,000 ML IV SCH (00:36)
[2021-12-27] MEDS: piperacillin/tazo 3.375gm/50ml 50 ML IV SCH ×3 (02:20→17:51)
[2021-12-27] MEDS: HYDROcodone/acetaminophen 5mg/325mg tablet PO PRN (02:55)
[2021-12-27 03:06] LABS: BASOPHILS # (AUTO) 0.3 X10'3 (0-0.2); EOSINOPHILS # (AUTO) 0.5 X10'3 (0-0.9); EOSINOPHILS % (AUTO) 1.6 % (0-6); HEMATOCRIT 43.1 % (35.0-45.0); HEMOGLOBIN 12.3 g/dl (12.0-16.0); LYMPHOCYTES # (AUTO) 2.5 X10'3 (1.1-4.8); LYMPHOCYTES % (AUTO) 7.3 % (21-51); MEAN CORPUSCULAR HEMOGLOBIN 19.3 PG (27.0-31.0); MEAN CORPUSCULAR HGB CONC 28.5 g/dL (33.0-36.5); MEAN CORPUSCULAR VOLUME 67.7 FL (78-98); MONOCYTES # (AUTO) 2.4 X10'3 (0-0.9); NEUTROPHILS # (AUTO) 28.1 X10'3 (1.8-7.7); NEUTROPHILS % (AUTO) 83.1 % (42-75); PLATELET COUNT 959 X10'3 (140-440); RED BLOOD COUNT 6.36 X10'6 (4.20-5.60); RED CELL DISTRIBUTION WIDTH 23.1 % (11.5-14.5)
[2021-12-27 03:12] LABS: ALANINE AMINOTRANSFERASE 26 U/L (12-78); ALBUMIN 2.3 G/DL (3.4-5.0); ALBUMIN/GLOBULIN RATIO 0.7 (1.1-1.5); ALKALINE PHOSPHATASE 158 IU/L (46-116); ANION GAP 5 (8-16); ASPARTATE AMINO TRANSFERASE 21 U/L (10-37); BILIRUBIN,TOTAL 0.3 MG/DL (0.1-1.0); BLOOD UREA NITROGEN 17 MG/DL (7-18); BUN/CREATININE RATIO 19.5 (6.6-38.0); CALCIUM 8.4 MG/DL (8.5-10.1); CHLORIDE 110 MMOL/L (99-107); CREATININE 0.87 MG/DL (0.40-0.90); GLUCOSE 99 MG/DL (70-104); POTASSIUM 3.8 MMOL/L (3.5-5.1); SODIUM 144 MMOL/L (135-145); TOTAL PROTEIN 5.6 G/DL (6.4-8.2); eGFR 64 ML/MIN
[2021-12-27 04:06] LABS: WHITE BLOOD COUNT 33.8 X10'3 (4.5-11.0)
[2021-12-27 04:48] LABS: ANISOCYTOSIS 3+; NUCLEATED RED BLOOD CELLS 1 /100WBC (0-0); PLATELET ESTIMATE INCREASED; TOTAL CELLS COUNTED 100
[2021-12-27 04:49] LABS: GIANT PLATELET FEW; MICROCYTOSIS 2+
[2021-12-27 04:50] LABS: HYPOCHROMASIA 1+
[2021-12-27 04:51] LABS: LARGE PLATELETS MANY
[2021-12-27 04:52] LABS: ELLIPTOCYTES 1+; TARGET CELLS FEW
[2021-12-27] MEDS: morphine 2 MG/ML inj. syringe IV PRN (05:18)
--- NOTE | 2021-12-27 06:26 | NUR ---
Problems reprioritized. Patient report given, questions answered & plan of care reviewed with Shonda KEYS.
--- NOTE | 2021-12-27 06:38 | NUR ---
Patient in room CICU 2011. I have received report from Nany KEYS and had the opportunity to ask questions and assume patient care.
[2021-12-27] MEDS: JUVEN Smoothie Arginine/Glut./Ca2+Bmb (Juven 19.3pkt) 240ml cup PO SCH ×2 (07:30→17:53)
[2021-12-27] MEDS: clopidogrel 75mg tablet PO SCH (07:44)
[2021-12-27] MEDS: multivitamins, therapeutics tablet PO SCH (07:44)
[2021-12-27] MEDS: levoTHYROXINE 25mcg tablet PO SCH (07:45)
[2021-12-27] MEDS: HYDROcodone/acetaminophen 10/325mg tab PO PRN ×2 (07:45→18:00)
[2021-12-27] MEDS: busPIRone 15mg tablet PO SCH ×3 (07:45→20:02)
[2021-12-27] MEDS: amLODIPine 5mg tablet PO SCH (08:00)
[2021-12-27] MEDS: docusate sod 100mg capsule PO SCH ×2 (08:00→20:00)
[2021-12-27] MEDS: NYSTATIN CREAM - 30GM TUBE TP SCH ×2 (08:00→20:03)
[2021-12-27] MEDS: K and/or MAG REPLACEMENT MC SCH ×2 (08:00→20:00)
[2021-12-27] MEDS: acetaminophen 325mg tablet PO PRN (09:39)
--- NOTE | 2021-12-27 10:12 | NUR ---
Dr Young by to round on patient, new orders, eliquis 10mg BID, D/C central line, hold norvasc today, keep ley for now, and D/C NS 50mls/hr
--- NOTE | 2021-12-27 10:39 | NUR ---
patient can transfer to pcu or ms with tele
--- NOTE | 2021-12-27 12:05 | NUR ---
Wound care changed bandage on patients left foot and covered up dorsal pedis location, assessment done on popliteal
--- NOTE | 2021-12-27 18:29 | NUR ---
Problems reprioritized. Patient report given, questions answered & plan of care reviewed with Iza KEYS.
--- NOTE | 2021-12-27 18:30 | NUR ---
Patient in room CICU 2011. I have received report from MASSIMO Merchant and had the opportunity to ask questions and assume patient care. Patient sitting up in bed watching TV, no concerns at this time.
[2021-12-27] MEDS: apixaban 2.5mg tablet PO SCH (20:02)
[2021-12-27] MEDS: traZODone 50mg tablet PO SCH (20:02)
[2021-12-28] VITALS (15 sets, daily range): BP systolic 108–161; BP diastolic 44–71
[2021-12-28] MEDS: HYDROcodone/acetaminophen 10/325mg tab PO PRN ×4 (01:58→18:58)
[2021-12-28 02:17] LABS: MONOCYTES # (AUTO) 1.8 X10'3 (0-0.9)
[2021-12-28 02:19] LABS: BASOPHILS # (AUTO) 0.5 X10'3 (0-0.2); BASOPHILS % (AUTO) 1.7 % (0-1); EOSINOPHILS # (AUTO) 1.4 X10'3 (0-0.9); EOSINOPHILS % (AUTO) 5.4 % (0-6); HEMATOCRIT 42.1 % (35.0-45.0); LYMPHOCYTES # (AUTO) 2.6 X10'3 (1.1-4.8); LYMPHOCYTES % (AUTO) 9.7 % (21-51); MEAN CORPUSCULAR HGB CONC 28.4 g/dL (33.0-36.5); MEAN CORPUSCULAR VOLUME 66.7 FL (78-98); MEAN PLATELET VOLUME 9.8 FL (7.4-10.4); MONOCYTES % (AUTO) 6.8 % (2-12); NEUTROPHILS # (AUTO) 20.1 X10'3 (1.8-7.7); NEUTROPHILS % (AUTO) 76.4 % (42-75); PLATELET COUNT 946 X10'3 (140-440); RED CELL DISTRIBUTION WIDTH 23.3 % (11.5-14.5)
[2021-12-28 02:28] LABS: ALANINE AMINOTRANSFERASE 24 U/L (12-78); ALBUMIN 2.4 G/DL (3.4-5.0); ALBUMIN/GLOBULIN RATIO 0.7 (1.1-1.5); ALKALINE PHOSPHATASE 148 IU/L (46-116); ANION GAP 6 (8-16); ASPARTATE AMINO TRANSFERASE 16 U/L (10-37); BILIRUBIN,TOTAL 0.4 MG/DL (0.1-1.0); BLOOD UREA NITROGEN 23 MG/DL (7-18); BUN/CREATININE RATIO 34.8 (6.6-38.0); CALCIUM 8.4 MG/DL (8.5-10.1); CHLORIDE 108 MMOL/L (99-107); CREATININE 0.66 MG/DL (0.40-0.90); GLUCOSE 97 MG/DL (70-104); POTASSIUM 3.7 MMOL/L (3.5-5.1); SODIUM 144 MMOL/L (135-145); TOTAL CARBON DIOXIDE 30.5 MMOL/L (24-32); TOTAL PROTEIN 5.8 G/DL (6.4-8.2); eGFR 88 ML/MIN
[2021-12-28] MEDS: piperacillin/tazo 3.375gm/50ml 50 ML IV SCH ×3 (02:34→17:09)
[2021-12-28 03:13] LABS: WHITE BLOOD COUNT 26.4 X10'3 (4.5-11.0)
[2021-12-28 03:44] LABS: ANISOCYTOSIS 3+; NUCLEATED RED BLOOD CELLS 1 /100WBC (0-0); PLATELET ESTIMATE INCREASED; TOTAL CELLS COUNTED 100
[2021-12-28 03:45] LABS: MICROCYTOSIS 2+
[2021-12-28 03:46] LABS: ELLIPTOCYTES FEW; HYPOCHROMASIA 1+
[2021-12-28 03:47] LABS: GIANT PLATELET FEW; LARGE PLATELETS MODERATE; SCHISTOCYTES FEW; TARGET CELLS FEW
--- NOTE | 2021-12-28 06:25 | NUR ---
Problems reprioritized. Patient report given, questions answered & plan of care reviewed with MASSIMO Norton.
[2021-12-28] MEDS: JUVEN Smoothie Arginine/Glut./Ca2+Bmb (Juven 19.3pkt) 240ml cup PO SCH ×2 (07:30→17:57)
[2021-12-28] MEDS: K and/or MAG REPLACEMENT MC SCH ×2 (07:34→20:00)
[2021-12-28] MEDS: busPIRone 15mg tablet PO SCH ×3 (07:45→21:17)
[2021-12-28] MEDS: clopidogrel 75mg tablet PO SCH (07:45)
[2021-12-28] MEDS: amLODIPine 5mg tablet PO SCH (07:46)
[2021-12-28] MEDS: multivitamins, therapeutics tablet PO SCH (07:46)
[2021-12-28] MEDS: apixaban 2.5mg tablet PO SCH (07:46)
[2021-12-28] MEDS: levoTHYROXINE 25mcg tablet PO SCH (07:46)
[2021-12-28] MEDS: NYSTATIN CREAM - 30GM TUBE TP SCH ×2 (07:49→21:17)
[2021-12-28] MEDS: docusate sod 100mg capsule PO SCH ×2 (08:00→21:16)
--- NOTE | 2021-12-28 12:16 | NUR ---
Patient in room CICU 2011. I have received report from Cierra Woodward and had the opportunity to ask questions and assume patient care.
--- NOTE | 2021-12-28 15:26 | NUR ---
Problems reprioritized. Patient report given, questions answered & plan of care reviewed with Amber KEYS.
--- NOTE | 2021-12-28 18:25 | NUR ---
Patient in room JANET 360. I have received report from MASSIMO Clark and had the opportunity to ask questions and assume patient care.
--- NOTE | 2021-12-28 18:46 | NUR ---
Problems reprioritized. Patient report given, questions answered & plan of care reviewed with julio arango.
[2021-12-28] MEDS: traZODone 50mg tablet PO SCH (21:16)
[2021-12-28] MEDS: apixaban 5mg tablet PO SCH (21:16)
[2021-12-29] MEDS: HYDROcodone/acetaminophen 10/325mg tab PO PRN ×4 (00:38→18:09)
[2021-12-29] MEDS: piperacillin/tazo 3.375gm/50ml 50 ML IV SCH ×3 (02:06→18:09)
--- NOTE | 2021-12-29 06:29 | NUR ---
Problems reprioritized. Patient report given, questions answered & plan of care reviewed with MASSIMO Clark.
--- NOTE | 2021-12-29 06:32 | NUR ---
Patient in room JANET 360. I have received report from EJ KEYS and had the opportunity to ask questions and assume patient care.
[2021-12-29 06:46] VITALS: BP 132/67
[2021-12-29] MEDS: JUVEN Smoothie Arginine/Glut./Ca2+Bmb (Juven 19.3pkt) 240ml cup PO SCH ×2 (07:30→17:45)
[2021-12-29] MEDS: K and/or MAG REPLACEMENT MC SCH ×2 (08:00→20:00)
[2021-12-29] MEDS: NYSTATIN CREAM - 30GM TUBE TP SCH ×2 (08:00→22:08)
[2021-12-29 08:42] LABS: BASOPHILS # (AUTO) 0.3 X10'3 (0-0.2)
[2021-12-29 08:43] LABS: BASOPHILS % (AUTO) 1.1 % (0-1); EOSINOPHILS # (AUTO) 1.5 X10'3 (0-0.9); EOSINOPHILS % (AUTO) 5.5 % (0-6); LYMPHOCYTES # (AUTO) 2.3 X10'3 (1.1-4.8); LYMPHOCYTES % (AUTO) 8.8 % (21-51); MEAN PLATELET VOLUME 9.9 FL (7.4-10.4); MONOCYTES # (AUTO) 1.3 X10'3 (0-0.9); NEUTROPHILS # (AUTO) 21.1 X10'3 (1.8-7.7); NEUTROPHILS % (AUTO) 79.6 % (42-75)
[2021-12-29 08:46] LABS: ALANINE AMINOTRANSFERASE 18 U/L (12-78); ALBUMIN 2.4 G/DL (3.4-5.0); ALBUMIN/GLOBULIN RATIO 0.6 (1.1-1.5); ALKALINE PHOSPHATASE 145 IU/L (46-116); ANION GAP 7 (8-16); ASPARTATE AMINO TRANSFERASE 17 U/L (10-37); BILIRUBIN,TOTAL 0.3 MG/DL (0.1-1.0); BLOOD UREA NITROGEN 22 MG/DL (7-18); BUN/CREATININE RATIO 36.1 (6.6-38.0); CALCIUM 8.6 MG/DL (8.5-10.1); CHLORIDE 106 MMOL/L (99-107); CREATININE 0.61 MG/DL (0.40-0.90); GLUCOSE 122 MG/DL (70-104); POTASSIUM 3.8 MMOL/L (3.5-5.1); SODIUM 142 MMOL/L (135-145); TOTAL CARBON DIOXIDE 28.8 MMOL/L (24-32); TOTAL PROTEIN 6.1 G/DL (6.4-8.2); eGFR > 90 ML/MIN
[2021-12-29] MEDS: busPIRone 15mg tablet PO SCH ×3 (08:59→22:09)
[2021-12-29] MEDS: clopidogrel 75mg tablet PO SCH (08:59)
[2021-12-29] MEDS: multivitamins, therapeutics tablet PO SCH (09:00)
[2021-12-29] MEDS: levoTHYROXINE 25mcg tablet PO SCH (09:00)
[2021-12-29] MEDS: apixaban 5mg tablet PO SCH ×2 (09:01→22:09)
[2021-12-29] MEDS: docusate sod 100mg capsule PO SCH ×2 (09:02→20:00)
[2021-12-29] MEDS: amLODIPine 5mg tablet PO SCH (09:02)
--- NOTE | 2021-12-29 09:14 | NUR ---
F/u 12/29: Pt post-op day 3 s/p L femoral to anterior tibial bypass PO mostly ~100% now regular diet meals and ~69% Jason smoothie BIDBD meeting wound healing needs. LBM 12/28 receiving routine colace. Will continue to monitor. Recommendations: 1. Continue regular diet per MD 2. Jason smoothie BIDBD for wound healing 3. MVI w/ Fe supplementation for wound healing/EtOH hx/low MCV per physician discretion 4. bowel care per rx 5. Weekly scaled weights Addendum: 12/29/21 at [address] Amended: Links added.
[2021-12-29 09:35] LABS: WHITE BLOOD COUNT 26.5 X10'3 (4.5-11.0)
[2021-12-29 09:36] LABS: PLATELET COUNT 1040 X10'3 (140-440)
[2021-12-29 09:37] LABS: HEMATOCRIT 41.4 % (35.0-45.0); HEMOGLOBIN 12.8 g/dl (12.0-16.0); MEAN CORPUSCULAR VOLUME 64.1 FL (78-98); RED BLOOD COUNT 6.46 X10'6 (4.20-5.60)
[2021-12-29 09:38] LABS: MEAN CORPUSCULAR HEMOGLOBIN 19.8 PG (27.0-31.0); RED CELL DISTRIBUTION WIDTH 21.8 % (11.5-14.5)
--- NOTE | 2021-12-29 09:41 | NUR ---
PAGED DR HERNDON RE: PAGER ID: [phone] MESSAGE: SONG BROWNING. CRITICAL PLT 1040 AND WBC 26.5. JES[facility]S [facility] [id number]
[2021-12-29 10:00] VITALS: BP 97/62
[2021-12-29 11:05] LABS: NUCLEATED RED BLOOD CELLS 1 /100WBC (0-0); TOTAL CELLS COUNTED 100
[2021-12-29 11:06] LABS: ANISOCYTOSIS 3+; GIANT PLATELET FEW; HYPOCHROMASIA 1+; LARGE PLATELETS MODERATE; MICROCYTOSIS 2+; PLATELET ESTIMATE INCREASED
[2021-12-29 11:07] LABS: POLYCHROMASIA 1+
[2021-12-29 11:08] LABS: ELLIPTOCYTES FEW; TARGET CELLS FEW
--- NOTE | 2021-12-29 11:22 | NUR ---
Pt. had a bowel movement in bed. Changed bedding, performed alex care, applied nystatin ointment on buttox. Drained ley; 400ml. Ley was leaking, but problem solved with placement.
[2021-12-29 18:00] VITALS: BP_SYST 137; BP_SYST 149; BP_DIAS 68; BP_DIAS 70
--- NOTE | 2021-12-29 18:15 | NUR ---
Patient in room JANET 360. I have received report from MASSIMO Clark and had the opportunity to ask questions and assume patient care.
--- NOTE | 2021-12-29 18:31 | NUR ---
Problems reprioritized. Patient report given, questions answered & plan of care reviewed with EJ KEYS.
[2021-12-29 22:00] VITALS: BP 137/70
[2021-12-29] MEDS: traZODone 50mg tablet PO SCH (22:09)
[2021-12-30] MEDS: piperacillin/tazo 3.375gm/50ml 50 ML IV SCH ×3 (02:17→18:05)
[2021-12-30] MEDS: HYDROcodone/acetaminophen 10/325mg tab PO PRN ×3 (04:22→21:38)
[2021-12-30 06:00] VITALS: BP 147/67
[2021-12-30 06:28] LABS: BASOPHILS # (AUTO) 0.4 X10'3 (0-0.2); BASOPHILS % (AUTO) 1.4 % (0-1); EOSINOPHILS # (AUTO) 1.3 X10'3 (0-0.9); EOSINOPHILS % (AUTO) 5.2 % (0-6); LYMPHOCYTES # (AUTO) 2.3 X10'3 (1.1-4.8); LYMPHOCYTES % (AUTO) 8.6 % (21-51); MEAN PLATELET VOLUME 9.6 FL (7.4-10.4); MONOCYTES # (AUTO) 1.7 X10'3 (0-0.9); MONOCYTES % (AUTO) 6.5 % (2-12); NEUTROPHILS # (AUTO) 20.4 X10'3 (1.8-7.7); NEUTROPHILS % (AUTO) 78.3 % (42-75); PLATELET COUNT 929 X10'3 (140-440)
[2021-12-30 06:30] LABS: ALANINE AMINOTRANSFERASE 17 U/L (12-78); ALBUMIN 2.4 G/DL (3.4-5.0); ALBUMIN/GLOBULIN RATIO 0.6 (1.1-1.5); ALKALINE PHOSPHATASE 150 IU/L (46-116); ANION GAP 9 (8-16); ASPARTATE AMINO TRANSFERASE 20 U/L (10-37); BILIRUBIN,TOTAL 0.4 MG/DL (0.1-1.0); BLOOD UREA NITROGEN 23 MG/DL (7-18); BUN/CREATININE RATIO 33.8 (6.6-38.0); CALCIUM 8.5 MG/DL (8.5-10.1); CHLORIDE 104 MMOL/L (99-107); CREATININE 0.68 MG/DL (0.40-0.90); GLUCOSE 110 MG/DL (70-104); POTASSIUM 3.9 MMOL/L (3.5-5.1); SODIUM 140 MMOL/L (135-145); TOTAL CARBON DIOXIDE 27.4 MMOL/L (24-32); TOTAL PROTEIN 6.2 G/DL (6.4-8.2); eGFR 85 ML/MIN
--- NOTE | 2021-12-30 06:43 | NUR ---
Problems reprioritized. Patient report given, questions answered & plan of care reviewed with MASSIMO Bradley.
[2021-12-30 06:45] LABS: HEMATOCRIT 39.9 % (35.0-45.0); HEMOGLOBIN 12.4 g/dl (12.0-16.0); MEAN CORPUSCULAR HEMOGLOBIN 20.4 PG (27.0-31.0); MEAN CORPUSCULAR HGB CONC 31.2 g/dL (33.0-36.5); MEAN CORPUSCULAR VOLUME 65.4 FL (78-98); RED CELL DISTRIBUTION WIDTH 21.9 % (11.5-14.5)
--- NOTE | 2021-12-30 06:47 | NUR ---
Patient in room JANET 360. I have received report from julio KEYS and had the opportunity to ask questions and assume patient care.
[2021-12-30 07:04] LABS: ANISOCYTOSIS 3+; GIANT PLATELET FEW; MICROCYTOSIS 2+; NUCLEATED RED BLOOD CELLS 1 /100WBC (0-0); PLATELET ESTIMATE INCREASED; TOTAL CELLS COUNTED 100
[2021-12-30 07:05] LABS: ELLIPTOCYTES 1+; HYPOCHROMASIA 1+; LARGE PLATELETS FEW; POLYCHROMASIA 2+; TARGET CELLS FEW; TOXIC GRANULATION 1+; TOXIC VACUOLATION FEW
[2021-12-30] MEDS: multivitamins, therapeutics tablet PO SCH (07:56)
[2021-12-30] MEDS: busPIRone 15mg tablet PO SCH ×3 (07:57→21:37)
[2021-12-30] MEDS: amLODIPine 5mg tablet PO SCH (07:57)
[2021-12-30] MEDS: apixaban 5mg tablet PO SCH ×2 (07:57→21:36)
[2021-12-30] MEDS: clopidogrel 75mg tablet PO SCH (07:57)
[2021-12-30] MEDS: levoTHYROXINE 25mcg tablet PO SCH (07:57)
[2021-12-30] MEDS: docusate sod 100mg capsule PO SCH ×2 (08:00→20:00)
[2021-12-30] MEDS: NYSTATIN CREAM - 30GM TUBE TP SCH ×2 (08:00→21:43)
[2021-12-30] MEDS: K and/or MAG REPLACEMENT MC SCH ×2 (08:00→20:00)
[2021-12-30] MEDS: JUVEN Smoothie Arginine/Glut./Ca2+Bmb (Juven 19.3pkt) 240ml cup PO SCH ×2 (08:01→18:06)
[2021-12-30 18:00] VITALS: BP 140/67
--- NOTE | 2021-12-30 18:45 | NUR ---
pictures taken of wound per Dr collazo requesting in chart. DRessings changed prevena in place to left groin, no hematoma observed. [place] given for pain x2 with good result. report given to Jordi KEYS
--- NOTE | 2021-12-30 18:52 | NUR ---
Patient in room JANET 360. I have received report from JOSE KEYS and had the opportunity to ask questions and assume patient care.
[2021-12-30] MEDS: traZODone 50mg tablet PO SCH (21:36)
[2021-12-30 22:00] VITALS: BP 121/54
[2021-12-31] MEDS: piperacillin/tazo 3.375gm/50ml 50 ML IV SCH ×2 (03:01→10:22)
[2021-12-31 06:00] VITALS: BP 156/81
[2021-12-31 06:26] LABS: ALANINE AMINOTRANSFERASE 17 U/L (12-78); ALBUMIN 2.5 G/DL (3.4-5.0); ALBUMIN/GLOBULIN RATIO 0.6 (1.1-1.5); ALKALINE PHOSPHATASE 149 IU/L (46-116); ANION GAP 8 (8-16); ASPARTATE AMINO TRANSFERASE 20 U/L (10-37); BILIRUBIN,TOTAL 0.3 MG/DL (0.1-1.0); BLOOD UREA NITROGEN 24 MG/DL (7-18); BUN/CREATININE RATIO 42.9 (6.6-38.0); CALCIUM 8.8 MG/DL (8.5-10.1); CHLORIDE 106 MMOL/L (99-107); CREATININE 0.56 MG/DL (0.40-0.90); GLUCOSE 103 MG/DL (70-104); POTASSIUM 3.9 MMOL/L (3.5-5.1); SODIUM 141 MMOL/L (135-145); eGFR > 90 ML/MIN
--- NOTE | 2021-12-31 06:28 | NUR ---
Problems reprioritized. Patient report given, questions answered & plan of care reviewed with ALYCIA KEYS.
[2021-12-31 07:06] LABS: BASOPHILS # (AUTO) 0.4 X10'3 (0-0.2); EOSINOPHILS # (AUTO) 1.3 X10'3 (0-0.9)
[2021-12-31 07:08] LABS: BASOPHILS % (AUTO) 1.7 % (0-1); EOSINOPHILS % (AUTO) 5.1 % (0-6); HEMATOCRIT 43.4 % (35.0-45.0); HEMOGLOBIN 12.6 g/dl (12.0-16.0); LYMPHOCYTES # (AUTO) 2.3 X10'3 (1.1-4.8); LYMPHOCYTES % (AUTO) 8.9 % (21-51); MEAN CORPUSCULAR HEMOGLOBIN 19.5 PG (27.0-31.0); MEAN CORPUSCULAR HGB CONC 29.1 g/dL (33.0-36.5); MEAN CORPUSCULAR VOLUME 67.1 FL (78-98); MEAN PLATELET VOLUME 9.7 FL (7.4-10.4); MONOCYTES # (AUTO) 1.5 X10'3 (0-0.9); MONOCYTES % (AUTO) 5.7 % (2-12); NEUTROPHILS # (AUTO) 20.3 X10'3 (1.8-7.7); NEUTROPHILS % (AUTO) 78.6 % (42-75); PLATELET COUNT 994 X10'3 (140-440); RED BLOOD COUNT 6.47 X10'6 (4.20-5.60)
[2021-12-31] MEDS: HYDROcodone/acetaminophen 10/325mg tab PO PRN ×2 (07:30→11:30)
--- NOTE | 2021-12-31 07:31 | NUR ---
Student Medication Administration: For this medication-pass time frame, all medication were reviewed, dispensed, administered and documented per hospital policy by joe Mathew student nurse with primary Yasmeen Street RN .
[2021-12-31 07:57] LABS: WHITE BLOOD COUNT 25.9 X10'3 (4.5-11.0)
[2021-12-31] MEDS: K and/or MAG REPLACEMENT MC SCH (08:00)
[2021-12-31] MEDS: docusate sod 100mg capsule PO SCH (08:00)
[2021-12-31] MEDS: amLODIPine 5mg tablet PO SCH (08:09)
[2021-12-31] MEDS: clopidogrel 75mg tablet PO SCH (08:09)
[2021-12-31] MEDS: levoTHYROXINE 25mcg tablet PO SCH (08:10)
[2021-12-31] MEDS: multivitamins, therapeutics tablet PO SCH (08:10)
[2021-12-31] MEDS: apixaban 5mg tablet PO SCH (08:11)
[2021-12-31] MEDS: busPIRone 15mg tablet PO SCH ×2 (08:11→12:15)
--- NOTE | 2021-12-31 08:12 | NUR ---
Student Medication Administration: For this medication-pass time frame, all medication were reviewed, dispensed, administered and documented per hospital policy by student nurse Hannah Mathew with primary nurse Yasmeen Street RN.
[2021-12-31 08:20] LABS: ANISOCYTOSIS 3+; MICROCYTOSIS 2+; NUCLEATED RED BLOOD CELLS 2 /100WBC (0-0); PLATELET ESTIMATE INCREASED; TOTAL CELLS COUNTED 100
[2021-12-31 08:21] LABS: GIANT PLATELET FEW; HYPOCHROMASIA 1+; LARGE PLATELETS FEW; POLYCHROMASIA 2+; TARGET CELLS FEW; TOXIC GRANULATION 1+; TOXIC VACUOLATION FEW
[2021-12-31 08:22] LABS: ELLIPTOCYTES 1+
[2021-12-31] MEDS: JUVEN Smoothie Arginine/Glut./Ca2+Bmb (Juven 19.3pkt) 240ml cup PO SCH (08:27)
[2021-12-31 10:00] VITALS: BP 127/63
[2021-12-31] MEDS: NYSTATIN CREAM - 30GM TUBE TP SCH (10:21)
--- NOTE | 2021-12-31 11:31 | NUR ---
Student Medication Administration: For this medication-pass time frame, all medication were reviewed, dispensed, administered and documented per hospital policy by student nurse Cameron with primary nurse Yasmeen Juarez RN.
--- NOTE | 2021-12-31 12:00 | NUR ---
REPORT CALLED TO KELVIN AT [facility]. ALL QUESTIONS ANSWERED AT THIS TIME. NO CURRENT CONCERNS. PATIENT DRESSINGS CDI, STRONG PULSES, KEPT IV AND PHELPS IN. IV ABX WILL BE GIVEN AT [facility].
--- NOTE | 2021-12-31 13:20 | NUR ---
CARSON WareRN stated pt is to go to facility with the WV, and she will notify [facility] to return the WV to [facility]. Transport team arrived and will deliver pt to facility w/ WV.
--- NOTE | 2021-12-31 13:35 | NUR ---
PER BIBI, SEND WOUND VAC TO [facility] FOR TRANSFER WITH PATIENT AND BIBI WILL CALL OVER TO LET [facility] KNOW.
--- NOTE | 2021-12-31 13:36 | NUR ---
PATIENT SAYS SHE HAD A BLACK PURSE BEFORE COMING TO THIS FLOOR THAT SHE THOUGHT 'HOUSEKEEPING' HAD TAKEN CARE OF FOR HER. I CALLED ADMITTING TO SEE IF IT WAS IN THE SAFE BUT IT WAS NOT. PATIENT DOES NOT HAVE A VALUABLES BAND ON HER OR IN THE CHART. PATIENT HAS LEFT TO [facility]. I HAVE CALLED PCU AND I HAVE EVS LOOKING IN LOST AND FOUND. IF IT IS ABLE TO BE LOCATED I WILL CALL [facility] AND LET THEM KNOW.
--- NOTE | 2021-12-31 19:27 | NUR ---
Student documentation: I have reviewed and agree with all interventions, assessments performed and documented by Hannah Mathew student nurse, by Minesh Mace RN instructor.
== END 2021-12-31 13:30 | DRG 853 ==
LOC: ER 16:29 → ED HOLD 21:55 → PCU 3S 12-13 15:03 → CICU 2S 12-26 15:11 → SUR 3N 12-28 16:33
PROVIDERS: ADMIT Internal Medicine; ATTEND Family Medicine
PROC: B4201ZZ Computerized Tomography (CT Scan) of Abdominal Aorta using Low Osmolar Contrast (ICD-10-PCS; 2021-12-19)
PROC: B4241ZZ Computerized Tomography (CT Scan) of Superior Mesenteric Artery using Low Osmolar Contrast (ICD-10-PCS; 2021-12-19)
PROC: B4281ZZ Computerized Tomography (CT Scan) of Bilateral Renal Arteries using Low Osmolar Contrast (ICD-10-PCS; 2021-12-19)
PROC: B42C1ZZ Computerized Tomography (CT Scan) of Pelvic Arteries using Low Osmolar Contrast (ICD-10-PCS; 2021-12-19)
PROC: B42H1ZZ Computerized Tomography (CT Scan) of Bilateral Lower Extremity Arteries using Low Osmolar Contrast (ICD-10-PCS; 2021-12-19)
PROC: B4211ZZ Computerized Tomography (CT Scan) of Celiac Artery using Low Osmolar Contrast (ICD-10-PCS; 2021-12-19)
PROC: 0J9B0ZZ Drainage of Perineum Subcutaneous Tissue and Fascia, Open Approach (ICD-10-PCS; 2021-12-20)
PROC: B41G1ZZ Fluoroscopy of Left Lower Extremity Arteries using Low Osmolar Contrast (ICD-10-PCS; 2021-12-26)
PROC: 02HV33Z Insertion of Infusion Device into Superior Vena Cava, Percutaneous Approach (ICD-10-PCS; 2021-12-26)
PROC: B548ZZA Ultrasonography of Superior Vena Cava, Guidance (ICD-10-PCS; 2021-12-26)
PROC: 03HY32Z Insertion of Monitoring Device into Upper Artery, Percutaneous Approach (ICD-10-PCS; 2021-12-26)
PROC: B34JZZZ Ultrasonography of Left Upper Extremity Arteries (ICD-10-PCS; 2021-12-26)
PROC: 041L0KQ Bypass Left Femoral Artery to Lower Extremity Artery with Nonautologous Tissue Substitute, Open Approach (ICD-10-PCS; principal; 2021-12-26 09:25)
DX: A41.9 Sepsis, unspecified organism (principal); G93.41 Metabolic encephalopathy; J96.00 Acute respiratory failure, unspecified whether with hypoxia or hypercapnia; I96 Gangrene, not elsewhere classified; E46 Unspecified protein-calorie malnutrition; N39.0 Urinary tract infection, site not specified; E87.20 Acidosis, unspecified; I70.92 Chronic total occlusion of artery of the extremities; I82.812 Embolism and thrombosis of superficial veins of left lower extremity; L03.116 Cellulitis of left lower limb; N17.9 Acute kidney failure, unspecified; D62 Acute posthemorrhagic anemia; Z68.1 Body mass index [BMI] 19.9 or less, adult; L03.115 Cellulitis of right lower limb; K61.2 Anorectal abscess; B96.20 Unspecified Escherichia coli [E. coli] as the cause of diseases classified elsewhere; D75.839 Thrombocytosis, unspecified; E03.9 Hypothyroidism, unspecified; E87.6 Hypokalemia; E78.5 Hyperlipidemia, unspecified; F17.210 Nicotine dependence, cigarettes, uncomplicated; R16.2 Hepatomegaly with splenomegaly, not elsewhere classified; F41.9 Anxiety disorder, unspecified; G62.9 Polyneuropathy, unspecified; G47.00 Insomnia, unspecified; R19.7 Diarrhea, unspecified; I10 Essential (primary) hypertension; D72.823 Leukemoid reaction; I25.10 Atherosclerotic heart disease of native coronary artery without angina pectoris; F40.240 Claustrophobia; I48.91 Unspecified atrial fibrillation; I70.203 Unspecified atherosclerosis of native arteries of extremities, bilateral legs; J44.9 Chronic obstructive pulmonary disease, unspecified; S30.1XXA Contusion of abdominal wall, initial encounter; X58.XXXA Exposure to other specified factors, initial encounter; K57.30 Diverticulosis of large intestine without perforation or abscess without bleeding; Z86.73 Personal history of transient ischemic attack (TIA), and cerebral infarction without residual deficits; Z89.511 Acquired absence of right leg below knee; Z89.611 Acquired absence of right leg above knee; Z88.8 Allergy status to other drugs, medicaments and biological substances; Z82.49 Family history of ischemic heart disease and other diseases of the circulatory system; Z79.899 Other long term (current) drug therapy; Z79.82 Long term (current) use of aspirin; Z79.02 Long term (current) use of antithrombotics/antiplatelets; Z71.6 Tobacco abuse counseling; Y93.89 Activity, other specified; Y92.89 Other specified places as the place of occurrence of the external cause; Y99.8 Other external cause status
CPT/HCPCS: 36415; 36600; 71045; 73590; 73718; 73720; 74176; 75635; 76000; 80048; 80053; 80061; 80202; 80305; 80320; 81001; 82308; 82607; 82728; 82803; 83540; 83550; 83605; 83735; 83880; 84132; 84145; 84443; 84484; 85007; 85018; 85025; 85610; 85651; 85730; 86140; 86885; 86900; 86901; 86920; 87040; 87070; 87075; 87077; 87081; 87088; 87186; 87811; 88304; 88305; 93005; 93926; 93971; 94668; 96361; 96365; 97110; 97161; 97530; 99285; A4349; A4353; A4618; A4649; A6196; A6212; A6213; A6250; A6253; A6258; A6260; A6402; A6407; A6446; A6449; A6455; A7000; A9575; C1758; C1768; G0378; J0360; J0696; J1100; J1644; J1956; J2060; J2250; J2270; J2405; J2543; J2704; J3010; J3370; J3490; J7030; J7040; J7070; J7120; Q9967

== ENCOUNTER 2022-01-02 07:35 | Observation (INO) | payer MEDICARE, MEDICAID ==
[~2022-01-02] VITALS: Ht 167.6 cm; Wt 80.0 kg
[~2022-01-02 07:35] MED LIST changes: -ASPI-1265 PO; +ASPI-416 PO; -LISI2.5T14 PO; +LISI20TA28 PO; +TRAZ-251 PO
[2022-01-02] MEDS ORDERED: normal saline 1000ML IV soln IV ONE (07:45)
[2022-01-02] MEDS ORDERED: etomidate 2mg/ml inj. ONE (08:00)
[2022-01-02] MEDS ORDERED: amiodarone 50MG/ML inj IV ONE ×2 (08:00→16:10)
[2022-01-02 09:07] LABS: BASOPHILS # (AUTO) 0.5 X10'3 (0-0.2)
[2022-01-02 09:10] LABS: BASOPHILS % (AUTO) 1.3 % (0-1); EOSINOPHILS # (AUTO) 0.4 X10'3 (0-0.9); LYMPHOCYTES # (AUTO) 1.9 X10'3 (1.1-4.8); LYMPHOCYTES % (AUTO) 4.9 % (21-51); MONOCYTES # (AUTO) 1.3 X10'3 (0-0.9); MONOCYTES % (AUTO) 3.3 % (2-12); NEUTROPHILS # (AUTO) 35.5 X10'3 (1.8-7.7); NEUTROPHILS % (AUTO) 89.5 % (42-75); RED CELL DISTRIBUTION WIDTH 23.4 % (11.5-14.5)
[2022-01-02 09:20] LABS: APTT 31 SECONDS (22-32)
[2022-01-02 09:29] LABS: ALANINE AMINOTRANSFERASE 16 U/L (12-78); ALBUMIN 2.2 G/DL (3.4-5.0); ALBUMIN/GLOBULIN RATIO 0.7 (1.1-1.5); ALKALINE PHOSPHATASE 118 IU/L (46-116); ANION GAP 13 (8-16); BILIRUBIN,TOTAL 0.4 MG/DL (0.1-1.0); BLOOD UREA NITROGEN 24 MG/DL (7-18); BUN/CREATININE RATIO 33.3 (6.6-38.0); CALCIUM 7.7 MG/DL (8.5-10.1); CHLORIDE 112 MMOL/L (99-107); CREATININE 0.72 MG/DL (0.40-0.90); GLUCOSE 166 MG/DL (70-104); SODIUM 148 MMOL/L (135-145); TOTAL CARBON DIOXIDE 22.7 MMOL/L (24-32); TOTAL PROTEIN 5.4 G/DL (6.4-8.2); eGFR 79 ML/MIN
[2022-01-02 09:39] LABS: ASPARTATE AMINO TRANSFERASE 30 U/L (10-37); POTASSIUM 4.2 MMOL/L (3.5-5.1)
[2022-01-02 09:49] LABS: HEMATOCRIT 33.7 % (35.0-45.0); HEMOGLOBIN 10.1 g/dl (12.0-16.0); MEAN CORPUSCULAR HEMOGLOBIN 19.6 PG (27.0-31.0); MEAN CORPUSCULAR HGB CONC 29.9 g/dL (33.0-36.5); MEAN CORPUSCULAR VOLUME 65.6 FL (78-98); PLATELET COUNT 1283 X10'3 (140-440); RED BLOOD COUNT 5.14 X10'6 (4.20-5.60)
[2022-01-02 10:05] LABS: ANISOCYTOSIS 3+; LARGE PLATELETS MODERATE; MICROCYTOSIS 2+; PLATELET ESTIMATE INCREASED; TOTAL CELLS COUNTED 100
[2022-01-02 10:06] LABS: GIANT PLATELET FEW; POLYCHROMASIA 1+
[2022-01-02] MEDS ORDERED: HYDROcodone/acetaminophen 5mg/325mg tablet PO PRN (12:05)
[2022-01-02] MEDS ORDERED: morphine 2 MG/ML inj. syringe IV PRN ×2 (12:05→19:15)
[2022-01-02] MEDS ORDERED: acetaminophen 325mg tablet PO PRN ×5 (12:05→20:15)
[2022-01-02] MEDS ORDERED: ondansetron/PF 4mg/2ml inj IV PRN ×2 (12:05→19:15)
[2022-01-02] MEDS ORDERED: magnesium Cl slow-release 64mg tablet PO PRN (12:05)
[2022-01-02] MEDS ORDERED: magnesium 4gm in 100ml NS 100 ML IV PRN (12:05)
[2022-01-02] MEDS ORDERED: potassium Cl 40MEQ/1/2NS 520ml 520 ML IV PRN (12:05)
[2022-01-02] MEDS ORDERED: potassium Cl 20 mEq SR tablet PO PRN ×2 (12:05)
[2022-01-02] MEDS ORDERED: normal saline 1000ml 1,000 ML IV SCH (12:05)
[2022-01-02] MEDS ORDERED: potassium CL 10mEq/100ml bag 100 ML IV PRN (12:20)
[2022-01-02] MEDS ORDERED: MULT-1121 PO (12:57)
[2022-01-02] MEDS ORDERED: AMLO2.5T4 PO (12:57)
[2022-01-02] MEDS ORDERED: HYDR-3972 PO (12:57)
[2022-01-02] MEDS ORDERED: ZOSYN 3.373.375 GM/5 IV (12:57)
[2022-01-02] MEDS ORDERED: ACET325T99 PO (12:57)
[2022-01-02] MEDS ORDERED: CLOP75TA33 PO (12:57)
[2022-01-02] MEDS ORDERED: APIX5TAB3 PO (12:57)
[2022-01-02] MEDS ORDERED: DOCU1ENE3 PR (12:57)
[2022-01-02] MEDS ORDERED: HYDR-3965 PO (12:57)
[2022-01-02] MEDS ORDERED: DOCU100C40 PO (12:57)
[2022-01-02 13:32] LABS: CLARITY,URINE CLOUDY (Clear); COLOR,URINE YELLOW (Yellow); GLUCOSE, URINE NEGATIVE (Neg); KETONES,URINE NEGATIVE (Neg); LEUKOCYTE ESTERASE ,URINE SMALL (Neg); NITRITES, URINE NEGATIVE (Neg); OCCULT BLOOD,URINE MODERATE (Neg); PROTEIN,URINE 30 mg/dl (Neg); UROBILINOGEN,URINE 0.2 E.U/dL (0.2-1.0)
[2022-01-02 13:43] LABS: UA COLLECTION TYPE FOLEY CATH
[2022-01-02 13:44] LABS: SQUAMOUS EPITHELIAL CELL,UR MODERATE /LPF (FEW); WBC,URINE TNTC /HPF (0-4)
[2022-01-02 13:45] LABS: BACTERIA,URINE 2+ /HPF (Neg); YEAST MODERATE /HPF (NEGATIVE)
[2022-01-02] MEDS ORDERED: PIPE3.3712 IV (15:37)
--- NOTE | 2022-01-02 16:07 | NUR ---
Rapid response called on patient due to new increased altered mental status. Patient has a hematoma to the left inner thigh/groin that has increased substantially since arrival to ER. Patient is pale cool and dry.
--- NOTE | 2022-01-02 16:08 | NUR ---
HR 160S, PT INCREASED CONFUSION, HEAMATOMA TO LEFT LEG 3X LARGER AND BLACK IN COLOR THAN UPON ADMIT. DR GOODRICH AT BS ORDER FOR AMIO 150 IVP GIVEN.
[2022-01-02] MEDS ORDERED: normal saline 500ml IV soln 500 ML IV ONE ×2 (16:10→17:50)
[2022-01-02] MEDS ORDERED: amiodarone 200mg tablet PO ONE (16:15)
--- NOTE | 2022-01-02 16:20 | NUR ---
DR VANEGAS AT BS VERBAL ORDERS FOR LABS, AMIO 100MG PO, VASULAR US.
[2022-01-02] MEDS ORDERED: amiodarone 100mg tablet PO ONE (16:25)
[2022-01-02 16:53] LABS: ABG BASE EXCESS -19.9 mmol/L (-2.0-2.0); ABG HCO3 7.4 mmol/L (22.0-26.0); ABG OXYGEN SATURATION 96.8 % (94-97); ABG PCO2 (T) 22.1 mmHg (32.0-45.0); ABG PO2 (T) 112.6 mmHg (75.0-100.0); ALLEN'S TEST Modified; FCOHb 0.7 % (0.0-3.9); FLOW 2 L/min; FMetHb 0.4 % (0.0-1.5); FO2Hb 95.7 % (94-97); TOTAL HEMOGLOBIN 7.3 G/dl (12.0-16.0)
--- NOTE | 2022-01-02 16:55 | NUR ---
VASCULAR AT BS
[2022-01-02 17:00] LABS: EOSINOPHILS # (AUTO) 0.1 X10'3 (0-0.9); MEAN PLATELET VOLUME 10.4 FL (7.4-10.4)
[2022-01-02] MEDS ORDERED: amiodarone/D5 360MG/200ML BAG 200 ML IV SCH ×2 (17:00→17:40)
[2022-01-02] MEDS ORDERED: piperacillin/tazo 3.375gm/50ml 50 ML IV SCH (17:05)
[2022-01-02] MEDS ORDERED: sodium bicarbonate (8.4%) inj. 50 MEQ in dextrose 5%-water 1,000 ML IV SCH (17:05)
[2022-01-02 17:06] LABS: BASOPHILS # (AUTO) 0.3 X10'3 (0-0.2); BASOPHILS % (AUTO) 0.5 % (0-1); EOSINOPHILS % (AUTO) 0.2 % (0-6); HEMATOCRIT 26.9 % (35.0-45.0); LYMPHOCYTES # (AUTO) 5.4 X10'3 (1.1-4.8); LYMPHOCYTES % (AUTO) 8.4 % (21-51); MONOCYTES # (AUTO) 2.7 X10'3 (0-0.9); MONOCYTES % (AUTO) 4.1 % (2-12); NEUTROPHILS # (AUTO) 56.1 X10'3 (1.8-7.7); NEUTROPHILS % (AUTO) 86.8 % (42-75); RED BLOOD COUNT 3.72 X10'6 (4.20-5.60); RED CELL DISTRIBUTION WIDTH 24.6 % (11.5-14.5)
[2022-01-02 17:13] LABS: D-DIMER 2.54 MG/L FEU (0-0.50)
[2022-01-02 17:15] LABS: ALANINE AMINOTRANSFERASE 33 U/L (12-78); ALBUMIN 1.8 G/DL (3.4-5.0); ALBUMIN/GLOBULIN RATIO 0.7 (1.1-1.5); ALKALINE PHOSPHATASE 131 IU/L (46-116); ANION GAP 23 (8-16); ASPARTATE AMINO TRANSFERASE 48 U/L (10-37); BILIRUBIN,TOTAL 0.3 MG/DL (0.1-1.0); BLOOD UREA NITROGEN 30 MG/DL (7-18); BUN/CREATININE RATIO 21.3 (6.6-38.0); CALCIUM 7.6 MG/DL (8.5-10.1); CHLORIDE 110 MMOL/L (99-107); CREATININE 1.41 MG/DL (0.40-0.90); GLUCOSE 349 MG/DL (70-104); HEMOGLOBIN 6.6 g/dl (12.0-16.0); POTASSIUM 4.4 MMOL/L (3.5-5.1); SODIUM 145 MMOL/L (135-145); TOTAL PROTEIN 4.3 G/DL (6.4-8.2); WHITE BLOOD COUNT 64.7 X10'3 (4.5-11.0); eGFR 37 ML/MIN
[2022-01-02 17:16] LABS: PLATELET COUNT 1386 X10'3 (140-440)
[2022-01-02] MEDS ORDERED: VANCOmycin 2,000MG in NS 500ml IV soln IV ONE (17:20)
--- NOTE | 2022-01-02 17:20 | NUR ---
CALL TO OR TO UPDATE DR AGUILAR OF PT CURRENT LABS NOTIFIED PT NOT GOING TO OR. PAGE TO DR VANEGAS TO UPDATE HER ON CURRENT LABS AND INQUIRE ABOUT PLAN OF CARE
[2022-01-02 17:23] LABS: TOTAL CARBON DIOXIDE 12.3 MMOL/L (24-32)
[2022-01-02] MEDS ORDERED: tranexamic acid 1gm/0.7% sal. 100 ML IV ONE (17:35)
[2022-01-02 17:36] LABS: MEAN CORPUSCULAR HEMOGLOBIN 18.7 PG (27.0-31.0); MEAN CORPUSCULAR VOLUME 66.9 FL (78-98)
[2022-01-02 17:40] LABS: ANISOCYTOSIS 3+; GIANT PLATELET FEW; LARGE PLATELETS MANY; MICROCYTOSIS 1+; NUCLEATED RED BLOOD CELLS 1 /100WBC (0-0); PLATELET ESTIMATE INCREASED; TOTAL CELLS COUNTED 100
[2022-01-02] MEDS ORDERED: tranexamic acid inj. 1,000 MG in normal saline 100ml IV soln 100 ML IV ONE (17:40)
[2022-01-02] MEDS ORDERED: tranexamic acid inj. 1,000 MG in normal saline 100ml IV soln 90 ML IV ONE (17:40)
[2022-01-02 17:41] LABS: ELLIPTOCYTES FEW; SCHISTOCYTES FEW
[2022-01-02] MEDS ORDERED: phytonadione inj. 5 MG in normal saline 100ml IV soln 100 ML IV ONE (18:05)
[2022-01-02] MEDS ORDERED: human prothrombin complex-PCC 100 ML IV ONE (18:15)
[2022-01-02] MEDS ORDERED: morphine 4 MG/ML inj SYRINge IV ONE (18:20)
[2022-01-02] MEDS ORDERED: ondansetron/PF 4mg/2ml inj IV ONE (18:20)
--- NOTE | 2022-01-02 18:28 | NUR ---
CALL FROM DR AGUILAR GIVEN BICARB 2 AMPS, AND START BICARB GTT. 1 AMP BICARB GIVEN FROM [facility] AND ONE FROM [facility]
[2022-01-02] MEDS ORDERED: sodium bicarbonate (8.4%) 1 mEq/ml syringe IV ONE (18:30)
[2022-01-02] MEDS ORDERED: meropenem inj 1 GM in normal saline 100ml IV soln 100 ML IV SCH (18:30)
[2022-01-02] MEDS ORDERED: TOBRAMYCIN IV ONE ×2 (18:35→18:43)
[2022-01-02] MEDS ORDERED: NORMAL SALINE IV ONE ×2 (18:35→18:43)
--- NOTE | 2022-01-02 18:45 | NUR ---
DR HO AT SPEAKING WITH PT RE GOING TO THE OR. PTS GRANDDAUGHTER ON HER WAY IN TO ER TO SPEAK TO PT AND VIC ABOUT PLAN OF CARE.
[2022-01-02] MEDS ORDERED: LIDOcaine 2% 10ml TOPICAL JELLY (Urojet) TP ONE (19:15)
[2022-01-02] MEDS ORDERED: magnesium hydroxide 30ml (MOM) UD suspension PO PRN (19:15)
[2022-01-02] MEDS ORDERED: morphine 4 MG/ML inj SYRINge IV PRN (19:15)
[2022-01-02] MEDS ORDERED: POTASSIUM BICARB 20meq eff tab 20 MEQ TABLET.EFF PO PRN ×2 (19:15)
--- NOTE | 2022-01-02 19:23 | NUR ---
REC REPORT AND ASSUMED CARE OF PT. DR BLOOM AND PHIL AT BEDSIDE DISCUSSING END OF LIFE CARE. PT AND POC IN AGREEMENT FOR PT TO BE DNR PER PREVIOUS WISHES.
[2022-01-02] MEDS ORDERED: K and/or MAG REPLACEMENT MC SCH (20:00)
[2022-01-02] MEDS ORDERED: morphine 10mg/ml inj. IV PRN (20:15)
[2022-01-02] MEDS ORDERED: morphine 10mg/0.5ml (conc. morphine) oral syringe PO PRN (20:15)
[2022-01-02] MEDS ORDERED: LORazepam 2 mg/ml vial IV PRN (20:15)
--- NOTE | 2022-01-02 20:30 | NUR ---
Spoke with granddaughter Sera regarding pt change in condition to comfort care and that pt may pass away tonight. Granddaughter wishes to be called when pt has & she will call in the am to check on pt.
[2022-01-02 20:52] LABS: MEAN PLATELET VOLUME 10.3 FL (7.4-10.4)
[2022-01-02] MEDS ORDERED: temazepam 15mg capsule PO PRN (21:00)
[2022-01-02 21:22] LABS: RED BLOOD COUNT 2.99 X10'6 (4.20-5.60)
[2022-01-02 21:23] LABS: MEAN CORPUSCULAR HGB CONC 28.7 g/dL (33.0-36.5); MEAN CORPUSCULAR VOLUME 66.1 FL (78-98); RED CELL DISTRIBUTION WIDTH 22.6 % (11.5-14.5)
[2022-01-02 21:25] LABS: HEMATOCRIT 19.8 % (35.0-45.0); HEMOGLOBIN 5.7 g/dl (12.0-16.0); PLATELET COUNT 1275 X10'3 (140-440); WHITE BLOOD COUNT 81.3 X10'3 (4.5-11.0)
[2022-01-02 22:30] VITALS: BP 62/50
--- NOTE | 2022-01-02 22:30 | NUR ---
Left message for granddaughter Sera to return call regarding pt declining condition.
--- NOTE | 2022-01-02 23:34 | NUR ---
Notified Dr Pollack of pt passing and pronounced pt passing with Dr Shen at bedside on 01/02/22 @ [id number]
--- NOTE | 2022-01-02 23:40 | NUR ---
Left messaged with Sera pt granddaughter to return call regarding update on pt condition.
--- NOTE | 2022-01-02 23:50 | NUR ---
Notified coronor, pt is not a coronor case. Notified [facility] of pt passing, pt is not a candidate for donation. Case # [id number]
--- NOTE | 2022-01-03 | NUR ---
Notified Dr Sapp of pt passing, [facility]
--- NOTE | 2022-01-03 00:25 | NUR ---
Left another message for Sera pt granddaughter to return call regarding update in pt status
--- NOTE | 2022-01-03 02:01 | NUR ---
Left another message for Sera luke granddaughter to return call
--- NOTE | 2022-01-03 02:26 | NUR ---
Notified Sandip in [place] to crop picker pt
--- NOTE | 2022-01-03 03:25 | NUR ---
[facility] called with ETA in about 1-2 hr, around 5-530am.
--- NOTE | 2022-01-03 04:10 | NUR ---
Tarik and Matthew here to seed cone picker pt/body and take to mortuary.
[2022-01-03] MEDS ORDERED: K and/or MAG REPLACEMENT MC SCH (08:00)
[2022-01-03] MEDS ORDERED: docusate sod 100mg capsule PO SCH (08:00)
[2022-01-03] MEDS ORDERED: sennosides/docusate sodium tablet PO SCH (08:00)
[2022-01-03] MEDS ORDERED: vancomycin/NS 1 GM ADD-VANTAGE 250 ML IV SCH (17:00)
--- NOTE | 2022-01-11 16:19 | NUR ---
Case Management DC follow up: Patient .
== END 2022-01-03 05:01 ==
LOC: ER 07:35 → ED HOLD 12:07
PROVIDERS: ADMIT Internal Medicine; ATTEND Internal Medicine
DX: M79.81 Nontraumatic hematoma of soft tissue (principal); I97.618 Postprocedural hemorrhage of a circulatory system organ or structure following other circulatory system procedure; I73.9 Peripheral vascular disease, unspecified; I25.10 Atherosclerotic heart disease of native coronary artery without angina pectoris; I48.91 Unspecified atrial fibrillation; E03.9 Hypothyroidism, unspecified; E78.5 Hyperlipidemia, unspecified; Z87.891 Personal history of nicotine dependence; Z86.73 Personal history of transient ischemic attack (TIA), and cerebral infarction without residual deficits; Z51.5 Encounter for palliative care; Z66 Do not resuscitate; Z79.899 Other long term (current) drug therapy
CPT/HCPCS: 36415; 36600; 71045; 80053; 81001; 82803; 83605; 84145; 84439; 84443; 85007; 85018; 85025; 85027; 85379; 85610; 85730; 86885; 86900; 86901; 86920; 87040; 87088; 93005; 93926; 96361; 96365; 96366; 96367; 96368; 96375; 96376; 99285; G0378; J0282; J2185; J2270; J2405; J3260; J3430; J3490; J7030; J7040; J7070; J7168; A4620; A6212; A6213; A6258; A6402; A6446; A6449